=== PATIENT | female | born 1960 | race Caucasian/White ===

== ENCOUNTER 2024-12-07 13:02 | Emergency (ER) | payer BC, SELFPAY ==
[2024-12-07 13:10] VITALS: BP 148/77; PULSE 92; RESP 18; TEMP 36.8; O2SAT 100
--- NOTE | 2024-12-07 13:33 | ED.URI ---
HPI - URI/Sore Throat General Chief Complaint: Upper Respiratory Infection Stated Complaint: Cough,Congestion,Headache Time Seen by Provider: 12/07/24 13:33 Source: patient, RN notes reviewed and old records reviewed Mode of arrival: ambulatory Limitations: no limitations History of Present Illness HPI Narrative: patient presents with complaints of sinus pain and congestion for 9 days. She reports that she is more tired than usual and has copious postnasal drainage which is causing her to cough. She has been trying [id number] medications with moderate relief. She denies any injury or trauma. She voices no other concerns or complaints today Related Data Home Medications ?Medication ?Instructions ?Recorded ?Confirmed ?Last Taken ?Type cetirizine 10 mg capsule (Zyrtec) 10 mg PO DAILY 09/13/23 11/02/24 Unknown History cholecalciferol (vitamin D3) 50 50 mcg PO DAILY 09/13/23 11/02/24 Unknown History mcg (2,000 unit) tablet anastrozole 1 mg tablet 1 mg PO DAILY 12/13/23 11/02/24 Unknown History Allergies Allergy/AdvReac Type Severity Reaction Status Date / Time No Known Allergies Allergy Verified 12/07/24 13:38 Review of Systems Review of Systems: All systems reviewed & are unremarkable except as noted in HPI and below Constitutional: Constitutional: Reports no additional constitutional complaints ENT: Reports system reviewed and no additional complaints, except as documented, Reports nasal congestion, Reports nasal discharge, Reports post nasal drip, Reports sinus pain and Reports sinus pressure Cardiovascular: Cardiovascular: Reports no additional cardiovascular complaints Respiratory: Respiratory: Reports no additional respiratory complaints and Reports cough Gastrointestinal: Gastrointestinal: Reports no additional gastrointestinal complaints [facility] Social History Social History Smoking status: Never smoker Spiritual care concerns: No Comments At the time of my signature, I reviewed and agree with the nursing past medical, surgical, social, and family history. There is no relevant family history pertinent to the patient complaint. Exam Const: General: cooperative, no acute distress, alert and awake Orientation/consciousness: oriented to person, oriented to place and oriented to time HENMT: Head: normal to inspection Ears: TM abnormal dull bilateral Face and sinus: sinus tenderness maxillary Mouth: Yes moist mucous membranes Throat: postnasal drainage Resp: Effort & Inspection: normal respiratory effort and able to speak in complete sentences Auscultation: clear to auscultation bilaterally, no crackles, no rales, no rhonchi and no wheezes Cardio: Palpation: normal PMI Rate: regular rate Rhythm: regular rhythm Heart sounds: S1 normal heart sound present and S2 normal heart sound present Neuro: General: oriented to person, oriented to place and oriented to time Cranial nerves: Yes CN's II-XII intact bilaterally Psych: Appearance: grossly normal Thought process: Normal thought process present Insight: Good insight present (Psych) Judgement: Good judgement present (Psych) Course Course Level of Care: Express Care Visit Vital Signs Vital signs: Vital Signs Temperature 98.2 F 12/07/24 13:10 Pulse Rate 92 12/07/24 13:10 Respiratory Rate 18 12/07/24 13:10 Blood Pressure 148/77 H 12/07/24 13:10 Pulse Oximetry 100 12/07/24 13:10 Oxygen Delivery Room Air 12/07/24 13:10 Temperature 98.2 F 12/07/24 13:10 Pulse Rate 92 12/07/24 13:10 Respiratory Rate 18 12/07/24 13:10 Blood Pressure 148/77 H 12/07/24 13:10 Pulse Oximetry 100 12/07/24 13:10 Oxygen Delivery Room Air 12/07/24 13:10 Reviewed MDM - URI/Sore Throat MDM Narrative Medical decision making narrative: history and exam consistent with sinusitis. Patient nontoxic appearing, stable for discharge home with p.o. antibiotic therapy. Discharge instructions reviewed with patient, as well as provided in writing per nursing staff. The instructions also include specific and strict return/GO TO THE ER as well as f/u information. All questions have been answered, and the patient deny any further questions with discharge and discharge plan. Some parts of this dictation were generated by voice recognition software and may contain typographical and/or grammatical inaccuracies. Differential Diagnosis Differential diagnosis: Likely upper respiratory infection, otitis media, sinusitis and viral infection Medical Records Attestation: I reviewed the patient's medical records. Lab Data Attestation: I reviewed the patient's lab results. Discharge Plan Discharge Clinical Impression: Sinusitis Qualifiers: Sinusitis location: maxillary Chronicity: acute Recurrence: not specified as recurrent Qualified Code(s): J01.00 - Acute maxillary sinusitis, unspecified Patient Disposition: Home, Self-Care Condition: Stable Instructions: Antibiotic Form, Sinusitis (ED) Additional Instructions: take medications as prescribed. Follow with primary care provider. Emergency department for new or worse symptoms Patient Language: Croatian Prescriptions: New amoxicillin-pot clavulanate 875-125 mg tablet 1 tablet PO Q12H Qty: 14 0RF benzonatate 200 mg capsule 200 mg PO TID PRN (Reason: cough) Qty: 30 0RF No Action cholecalciferol (vitamin D3) 50 mcg (2,000 unit) Tablet 50 mcg PO DAILY Zyrtec 10 mg Capsule 10 mg PO DAILY anastrozole 1 mg Tablet 1 mg PO DAILY Follow-up/Referrals: UNKNOWN,DOCTOR [Primary Care Provider] - 2 Weeks Time of Disposition: 13:48
--- OUTSIDE RECORDS SUMMARY | 2024-12-07 13:41 | XMS_ITS ---
Author Name Interface, [id number] lity Address [address] [place] [address] [facility] ters Address [address] [place] [address] Care Team Providers Care Recruiter Coordinator Name Role Phone DicksonMoriah connortie Unavailable Unavailable Allergies and Adverse Reactions Medication/Group Name Reaction Severity Date No known allergies Plan Date Type Value 04/25/2029 APPOINTMENT Chemo C12D1 Dylon sumab (Prolia) [id number] 10/25/2028 APPOINTMENT Chemo C11D1 Dylon sumab (Prolia) K4Bfjmc 04/26/2028 APPOINTMENT Chemo C10D1 Dylon sumab (Prolia) E8Mxovl 10/27/2027 APPOINTMENT Chemo C9D1 Denos umab (Prolia) Y0Wbfjm 04/28/2027 APPOINTMENT Chemo C8D1 Denos umab (Prolia) L4Bjiqo 10/28/2026 APPOINTMENT Chemo C7D1 Denos umab (Prolia) Y4Sznss 04/29/2026 APPOINTMENT Chemo C6D1 Denos umab (Prolia) Q7Lowui 10/29/2025 APPOINTMENT Chemo C5D1 Denos umab (Prolia) I8Stzcu 04/30/2025 APPOINTMENT Chemo C4D1 Denos umab (Prolia) I2Zkofh 10/30/2024 APPOINTMENT Chemo C3D1 Denos umab (Prolia) Q8Iqffw 07/31/2024 APPOINTMENT Lab 07/31/2024 APPOINTMENT Follow-Up 07/31/2024 APPOINTMENT Lab 05/01/2024 APPOINTMENT Lab 05/01/2024 APPOINTMENT Chemo C2D1 Denos umab (Prolia) C4Qtgtv 05/01/2024 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 05/01/2024 APPOINTMENT Lab 05/01/2024 APPOINTMENT Follow-Up 04/29/2024 APPOINTMENT Chemo C2D1 Denos umab (Prolia) L8Gqigm 04/19/2024 APPOINTMENT Chemo C2D1 Denos umab (Prolia) X7Wxahb 01/24/2024 APPOINTMENT Follow-Up 12/25/2023 APPOINTMENT Anastrozole Oral 12/25/2023 APPOINTMENT Anastrozole Oral 11/29/2023 APPOINTMENT Anastrozole Oral 11/29/2023 APPOINTMENT Anastrozole Oral 11/29/2023 APPOINTMENT Lab 11/29/2023 APPOINTMENT Lab 11/29/2023 APPOINTMENT Follow-Up 11/29/2023 LABORDER CBC 11/29/2023 LABORDER CNG PANEL(CMP no Glucose) 04/25/2024 LABORDER Mammogram, scree lashonda, bilateral breast 05/01/2024 LABORDER CBC 05/01/2024 LABORDER CNG PANEL(CMP no Glucose) 07/31/2024 LABORDER CBC 07/31/2024 LABORDER CMP PANEL Reason for Visit Chemo C3D1 Denosumab (Prolia) [id number] Encounters Date Name 11/29/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 Screening mammograph y (procedure) Diagnostic Results Date Type Test Units Lower Limit Upper Limit Result Flag Comments Status Ordered By Specimen Source Lab Address 11/29 CBC WBC K/uL 4.0 11.0 4.1 [facility]AL [facility] [place] [facility], [address] [place] [id number] 0 11/29 CBC RBC M/uL 4.2 5.4 3.91 Low [facility]AL [facility] [place] [facility], [address] [place] [id number] 0 11/29 CBC HGB g/dL 12.0 16.0 12.7 [facility] [place] [facility], [address] [place] [id number] 0 11/29 CBC HCT % 37.0 47.0 38.0 [facility]AL [facility] [place] [facility], [address] [place] [id number] 0 11/29 CBC MCV fL 79.0 101.0 97.2 FINAL [facility] [place] [facility], [address] [place] [id number] 0 11/29 CBC MCH pg 27.0 31.0 32.5 High FINAL [facility] [place] [facility], [address] [place] [id number] 0 11/29 CBC MCHC g/dL 32.0 37.0 33.4 [facility] [place] [facility], [address] [place] [id number] 0 11/29 CBC RDW-C V, % % 8.0 15.0 13.1 [facility] [place] [facility], [address] [place] [id number] 0 11/29 CBC MPV fL 9.4 11.4 8.8 Low [facility] [place] [facility], [address] [place] [id number] 0 11/29 CBC PLT K/uL 130.0 400.0 163 [facility] [place] [facility], [address] [place] [id number] 0 11/29 CBC Danilo % % 58.0 71.0 53.8 Low [facility] [place] [facility], [address] [place] [id number] 0 11/29 CBC LY % % 20.0 38.0 31.2 [facility] [place] [facility], [address] [place] [id number] 0 11/29 CBC MO % % 0.0 15.0 11.6 [facility] [place] [facility], [address] [place] [id number] 0 11/29 CBC EO % % 0.0 6.0 2.9 [facility] [place] [facility], [address] [place] [id number] 0 11/29 CBC BA % % 0.0 3.0 0.5 [facility] [place] [facility], [address] [place] [id number] 0 11/29 CBC Danilo # (ANC) K/uL 1.8 7.8 2.2 [facility] [place] [facility], [address] [place] [id number] 0 11/29 CBC LY # K/uL 0.0 4.8 1.3 [facility] [place] [facility], [address] [place] [id number] 0 11/29 CBC MO # K/uL 0.1 0.8 0.5 [facility]AL [facility] [place] [facility], [address] [place] [id number] 0 11/29 CBC EO # K/uL 0.0 1.0 0.1 [facility] [place] [facility], [address] [place] [id number] 0 11/29 CBC BA # K/uL 0.0 1.3 0.0 [facility] [place] [facility], [address] [place] [id number] 0 11/29 CBC IG # K/uL 0.0 0.0 0.0 [facility] [place] [facility], [address] [place] [id number] 0 11/29 CBC IG % % 0.0 0.0 0.0 [facility] [place] [facility], [address] [place] [id number] 0 11/29 Sodiu m mmol/L 136.0 145.0 140 [facility] [place] [facility], [address] [place] [id number] 0 11/29 Potas sium mmol/L 3.5 5.1 3.7 [facility] [place] [facility], [address] [place] [id number] 0 11/29 Chlor vee mmol/L 98.0 107.0 107 [facility] [place] [facility], [address] [place] [id number] 0 11/29 Total prote in g/dL 6.4 8.2 7.8 [facility] [place] [facility], [address] [place] [id number] 0 11/29 Album in g/dL 3.4 5.0 4.1 [facility] [place] [facility], [address] [place] [id number] 0 11/29 Calci um mg/dL 8.5 10.1 9.3 [facility] [place] [facility], [address] [place] [id number] 0 11/29 BUN mg/dL 7.0 18.0 12 [facility] [place] [facility], [address] [place] [id number] 0 11/29 Creat inine mg/dL 0.55 1.02 0.53 Low [facility] [place] [facility], [address] [place] [id number] 0 11/29 Bilir ubin, total mg/dL 0.2 1.0 0.40 [facility] [place] [facility], [address] [place] [id number] 0 11/29 AST/S GOT U/L 15.0 37.0 29 [facility] [place] [facility], [address] [place] [id number] 0 11/29 ALT/S GPT U/L 12.0 78.0 19 [facility] [place] [facility], [address] [place] [address] [place] [address] 0 11/29 Alkal ine phosp hatas e U/L 46.0 116.0 89 [facility] [place] [facility], [address] [place] [address] [place] [address] 0 11/29 eGFR (2020 ) V 105.20 [facility] [place] [facility], [address] [place] [id number] 0 05/01 Sodiu m mmol/L 136.0 145.0 139 [facility] [place] [facility], [address] [place] [id number] 0 05/01 Potas sium mmol/L 3.5 5.1 3.8 [facility] [facility], [address] [place] [address] [place] [address] 0 05/01 Chlor vee mmol/L 98.0 107.0 104 [facility] [place] [facility], [address] [place] [id number] 0 05/01 Total prote in g/dL 6.4 8.2 7.4 [facility] [place] [facility], [address] [place] [id number] 0 05/01 Album in g/dL 3.4 5.0 4.5 [facility] [place] [facility], [address] [place] [id number] 0 05/01 Calci um mg/dL 8.5 10.1 9.5 [facility] [place] [facility], [address] [place] [id number] 0 05/01 BUN mg/dL 7.0 18.0 17 [facility] [place] [facility], [address] [place] [id number] 0 05/01 Creat inine mg/dL 0.55 1.02 0.58 [facility] [place] [facility], [address] [place] [id number] 0 05/01 Bilir ubin, total mg/dL 0.2 1.0 0.40 [facility] [place] [facility], [address] [place] [id number] 0 05/01 AST/S GOT U/L 15.0 37.0 27 [facility] [place] [facility], [address] [place] [id number] 0 05/01 ALT/S GPT U/L 12.0 78.0 15 [facility] [place] [facility], [address] [place] [address] [place] [address] 0 05/01 Alkal ine phosp hatas e U/L 46.0 116.0 75 [facility] [place] [facility], [address] [place] [address] [place] [address] 0 05/01 eGFR (2020 ) V 102.67 [facility] [place] [facility], [address] [place] [address] [place] [address] 0 05/01 CBC WBC K/uL 4.0 11.0 5.2 [facility] [place] [facility], [address] [place] [id number] 0 05/01 CBC RBC M/uL 4.2 5.4 3.93 Low [facility] [place] [facility], [address] [place] [id number] 0 05/01 CBC HGB g/dL 12.0 16.0 13.0 [facility] [place] [facility], [address] [place] [id number] 0 05/01 CBC HCT % 37.0 47.0 37.9 [facility] [place] [facility], [address] [place] [id number] 0 05/01 CBC MCV fL 79.0 101.0 96.4 [facility] [place] [facility], [address] [place] [id number] 0 05/01 CBC MCH pg 27.0 31.0 33.1 High [facility] [place] [facility], [address] [place] [id number] 0 05/01 CBC MCHC g/dL 32.0 37.0 34.3 [facility]AL [facility] [place] [facility], [address] [place] [id number] 0 05/01 CBC RDW-C V, % % 8.0 15.0 12.5 [facility]AL [facility] [place] [facility], [address] [place] [id number] 0 05/01 CBC MPV fL 9.4 11.4 8.3 Low [facility] [place] [facility], [address] [place] [id number] 0 05/01 CBC PLT K/uL 130.0 400.0 147 [facility] [place] [facility], [address] [place] [id number] 0 05/01 CBC Danilo % % 58.0 71.0 63.6 [facility] [place] [facility], [address] [place] [id number] 0 05/01 CBC LY % % 20.0 38.0 25.6 [facility] [place] [facility], [address] [place] [id number] 0 05/01 CBC MO % % 0.0 15.0 8.1 [facility] [place] [facility], [address] [place] [id number] 0 05/01 CBC EO % % 0.0 6.0 2.1 [facility] [place] [facility], [address] [place] [id number] 0 05/01 CBC BA % % 0.0 3.0 0.4 [facility] [place] [facility], [address] [place] [id number] 0 05/01 CBC Danilo # (ANC) K/uL 1.8 7.8 3.3 [facility] [place] [facility], [address] [place] [id number] 0 05/01 CBC LY # K/uL 0.0 4.8 1.3 [facility] [place] [facility], [address] [place] [id number] 0 05/01 CBC MO # K/uL 0.1 0.8 0.4 [facility] [place] [facility], [address] [place] [id number] 0 05/01 CBC EO # K/uL 0.0 1.0 0.1 [facility] [place] [facility], [address] [place] [id number] 0 05/01 CBC BA # K/uL 0.0 1.3 0.0 [facility] [place] [facility], [address] [place] [id number] 0 05/01 CBC IG # K/uL 0.0 0.0 0.0 [facility]AL [facility] [place] [facility], [address] [place] [id number] 0 05/01 CBC IG % % 0.0 0.0 0.2 High [facility] [place] [facility], [address] [place] [id number] 0 07/31 WBC K/uL 4.0 11.0 5.4 [facility] [place] [facility], [address] [place] [id number] 0 07/31 RBC M/uL 4.2 5.4 4.14 Low [facility] [place] [facility], [address] [place] [id number] 0 07/31 HGB g/dL 12.0 16.0 13.7 [facility] [place] [facility], [address] [place] [id number] 0 07/31 HCT % 37.0 47.0 40.7 [facility] [place] [facility], [address] [place] [id number] 0 07/31 MCV fL 79.0 101.0 98.3 [facility]AL [facility] [place] [facility], [address] [place] [id number] 0 07/31 MCH pg 27.0 31.0 33.1 High [facility] [place] [facility], [address] [place] [id number] 0 07/31 MCHC g/dL 32.0 37.0 33.7 [facility] [place] [facility], [address] [place] [id number] 0 07/31 RDW-C V, % % 8.0 15.0 12.7 [facility] [place] [facility], [address] [place] [id number] 0 07/31 MPV fL 9.4 11.4 8.5 Low [facility] [place] [facility], [address] [place] [id number] 0 07/31 PLT K/uL 130.0 400.0 196 [facility] [place] [facility], [address] [place] [id number] 0 07/31 Danilo % % 58.0 71.0 59.9 [facility] [place] [facility], [address] [place] [id number] 0 07/31 LY % % 20.0 38.0 27.8 [facility] [place] [facility], [address] [place] [id number] 0 07/31 MO % % 0.0 15.0 9.8 [facility] [place] [facility], [address] [place] [id number] 0 07/31 EO % % 0.0 6.0 1.9 [facility] [place] [facility], [address] [place] [id number] 0 07/31 BA % % 0.0 3.0 0.4 [facility] [place] [facility], [address] [place] [id number] 0 07/31 Danilo # (ANC) K/uL 1.8 7.8 3.2 [facility]AL [facility] [place] [facility], [address] [place] [id number] 0 07/31 LY # K/uL 0.0 4.8 1.5 [facility] [place] [facility], [address] [place] [id number] 0 07/31 MO # K/uL 0.1 0.8 0.5 [facility] [place] [facility], [address] [place] [id number] 0 07/31 EO # K/uL 0.0 1.0 0.1 [facility] [place] [facility], [address] [place] [id number] 0 07/31 BA # K/uL 0.0 1.3 0.0 [facility] [place] [facility], [address] [place] [id number] 0 07/31 IG # K/uL 0.0 0.0 0.0 [facility]AL [facility] [place] [facility], [address] [place] [id number] 0 07/31 IG % % 0.0 0.0 0.2 High [facility] [place] [facility], [address] [place] [id number] 0 07/31 Sodiu m mmol/L 136.0 145.0 138 [facility] [place] [facility], [address] [place] [id number] 0 07/31 Potas sium mmol/L 3.5 5.1 4.6 [facility] [place] [facility], [address] [place] [id number] 0 07/31 Chlor vee mmol/L 98.0 107.0 104 [facility] [place] [facility], [address] [place] [id number] 0 07/31 Total prote in g/dL 6.4 8.2 7.6 [facility] [place] [facility], [address] [place] [id number] 0 07/31 Album in g/dL 3.4 5.0 4.5 [facility] [place] [facility], [address] [place] [id number] 0 07/31 Calci um mg/dL 8.5 10.1 9.9 [facility] [place] [facility], [address] [place] [id number] 0 07/31 BUN mg/dL 7.0 18.0 16 [facility] [place] [facility], [address] [place] [id number] 0 07/31 Creat inine mg/dL 0.55 1.02 0.60 [facility] [place] [facility], [address] [place] [id number] 0 07/31 Bilir ubin, total mg/dL 0.2 1.0 0.70 [facility] [place] [facility], [address] [place] [id number] 0 07/31 AST/S GOT U/L 15.0 37.0 22 [facility] [place] [facility], [address] [place] [id number] 0 07/31 ALT/S GPT U/L 12.0 78.0 14 [facility] [place] [facility], [address] [place] [id number] 0 07/31 Alkal ine phosp hatas e U/L 46.0 116.0 70 [facility] [place] [facility], [address] [place] [id number] 0 07/31 eGFR (2020 ) V 101.67 [facility] [place] [facility], [address] [place] [id number] 0 Medications Date Name Route Dose Frequency Instructions Start Date End Date Status Cholecalciferol Oral active Cetirizine Oral a ctive 04/25 1 ML denosumab 60 MG/ML Prefilled Syringe subcutaneously 60.0 mg once Administer SQ injection in the upper arm, upper thigh or abdomen. 2028 active 04/25 famotidine 10 MG/ML Injectable Solution intravenously 20.0 mg Re-initiate treatment only upon physician approval. 2028 active 04/25 1 ML epinephrine 1 MG/ML Injection intramuscularly 0.3 mg once Re-initiate treatment only upon physician approval. 2028 active 04/25 diphenhydramine hydrochloride 0.5 MG/ML Injectable Solution intravenously 50.0 mg Re-initiate treatment only upon physician approval. 2028 active 04/25 methylprednisolo ne 2000 MG Injection intravenously 125.0 mg Re-initiate treatment only upon physician approval. 2028 active 04/25 hydrocortisone 100 MG Injection intravenously 100.0 mg Re-initiate treatment only upon physician approval. 2028 active 10/25 methylprednisolo ne 2000 MG Injection intravenously 125.0 mg Re-initiate treatment only upon physician approval. 2027 active 10/25 famotidine 10 MG/ML Injectable Solution intravenously 20.0 mg Re-initiate treatment only upon physician approval. 2027 active 10/25 hydrocortisone 100 MG Injection intravenously 100.0 mg Re-initiate treatment only upon physician approval. 2027 active 10/25 1 ML denosumab 60 MG/ML Prefilled Syringe subcutaneously 60.0 mg once Administer SQ injection in the upper arm, upper thigh or abdomen. 2027 active 10/25 diphenhydramine hydrochloride 0.5 MG/ML Injectable Solution intravenously 50.0 mg Re-initiate treatment only upon physician approval. 2027 active 10/25 1 ML epinephrine 1 MG/ML Injection intramuscularly 0.3 mg once Re-initiate treatment only upon physician approval. 2027 active 04/26 methylprednisolo ne 2000 MG Injection intravenously 125.0 mg Re-initiate treatment only upon physician approval. 2027 active 04/26 diphenhydramine hydrochloride 0.5 MG/ML Injectable Solution intravenously 50.0 mg Re-initiate treatment only upon physician approval. 2027 active 04/26 1 ML denosumab 60 MG/ML Prefilled Syringe subcutaneously 60.0 mg once Administer SQ injection in the upper arm, upper thigh or abdomen. 2027 active 04/26 hydrocortisone 100 MG Injection intravenously 100.0 mg Re-initiate treatment only upon physician approval. 2027 active 04/26 1 ML epinephrine 1 MG/ML Injection intramuscularly 0.3 mg once Re-initiate treatment only upon physician approval. 2027 active 04/26 famotidine 10 MG/ML Injectable Solution intravenously 20.0 mg Re-initiate treatment only upon physician approval. 2027 active 10/27 hydrocortisone 100 MG Injection intravenously 100.0 mg Re-initiate treatment only upon physician approval. 2026 active 10/27 1 ML epinephrine 1 MG/ML Injection intramuscularly 0.3 mg once Re-initiate treatment only upon physician approval. 2026 active 10/27 methylprednisolo ne 2000 MG Injection intravenously 125.0 mg Re-initiate treatment only upon physician approval. 2026 active 10/27 famotidine 10 MG/ML Injectable Solution intravenously 20.0 mg Re-initiate treatment only upon physician approval. 2026 active 10/27 1 ML denosumab 60 MG/ML Prefilled Syringe subcutaneously 60.0 mg once Administer SQ injection in the upper arm, upper thigh or abdomen. 2026 active 10/27 diphenhydramine hydrochloride 0.5 MG/ML Injectable Solution intravenously 50.0 mg Re-initiate treatment only upon physician approval. 2026 active 04/28 methylprednisolo ne 2000 MG Injection intravenously 125.0 mg Re-initiate treatment only upon physician approval. 2026 active 04/28 famotidine 10 MG/ML Injectable Solution intravenously 20.0 mg Re-initiate treatment only upon physician approval. 2026 active 04/28 1 ML epinephrine 1 MG/ML Injection intramuscularly 0.3 mg once Re-initiate treatment only upon physician approval. 2026 active 04/28 diphenhydramine hydrochloride 0.5 MG/ML Injectable Solution intravenously 50.0 mg Re-initiate treatment only upon physician approval. 2026 active 04/28 1 ML denosumab 60 MG/ML Prefilled Syringe subcutaneously 60.0 mg once Administer SQ injection in the upper arm, upper thigh or abdomen. 2026 active 04/28 hydrocortisone 100 MG Injection intravenously 100.0 mg Re-initiate treatment only upon physician approval. 2026 active 10/28 diphenhydramine hydrochloride 0.5 MG/ML Injectable Solution intravenously 50.0 mg Re-initiate treatment only upon physician approval. 2025 active 10/28 hydrocortisone 100 MG Injection intravenously 100.0 mg Re-initiate treatment only upon physician approval. 2025 active 10/28 methylprednisolo ne 2000 MG Injection intravenously 125.0 mg Re-initiate treatment only upon physician approval. 2025 active 10/28 famotidine 10 MG/ML Injectable Solution intravenously 20.0 mg Re-initiate treatment only upon physician approval. 2025 active 10/28 1 ML epinephrine 1 MG/ML Injection intramuscularly 0.3 mg once Re-initiate treatment only upon physician approval. 2025 active 10/28 1 ML denosumab 60 MG/ML Prefilled Syringe subcutaneously 60.0 mg once Administer SQ injection in the upper arm, upper thigh or abdomen. 2025 active 04/29 1 ML denosumab 60 MG/ML Prefilled Syringe subcutaneously 60.0 mg once Administer SQ injection in the upper arm, upper thigh or abdomen. 2025 active 04/29 diphenhydramine hydrochloride 0.5 MG/ML Injectable Solution intravenously 50.0 mg Re-initiate treatment only upon physician approval. 2025 active 04/29 methylprednisolo ne 2000 MG Injection intravenously 125.0 mg Re-initiate treatment only upon physician approval. 2025 active 04/29 1 ML epinephrine 1 MG/ML Injection intramuscularly 0.3 mg once Re-initiate treatment only upon physician approval. 2025 active 04/29 hydrocortisone 100 MG Injection intravenously 100.0 mg Re-initiate treatment only upon physician approval. 2025 active 04/29 famotidine 10 MG/ML Injectable Solution intravenously 20.0 mg Re-initiate treatment only upon physician approval. 2025 active 10/29 1 ML epinephrine 1 MG/ML Injection intramuscularly 0.3 mg once Re-initiate treatment only upon physician approval. 2024 active 10/29 methylprednisolo ne 2000 MG Injection intravenously 125.0 mg Re-initiate treatment only upon physician approval. 2024 active 10/29 1 ML denosumab 60 MG/ML Prefilled Syringe subcutaneously 60.0 mg once Administer SQ injection in the upper arm, upper thigh or abdomen. 2024 active 10/29 diphenhydramine hydrochloride 0.5 MG/ML Injectable Solution intravenously 50.0 mg Re-initiate treatment only upon physician approval. 2024 active 10/29 hydrocortisone 100 MG Injection intravenously 100.0 mg Re-initiate treatment only upon physician approval. 2024 active 10/29 famotidine 10 MG/ML Injectable Solution intravenously 20.0 mg Re-initiate treatment only upon physician approval. 2024 active 04/30 famotidine 10 MG/ML Injectable Solution intravenously 20.0 mg Re-initiate treatment only upon physician approval. 2024 active 04/30 1 ML denosumab 60 MG/ML Prefilled Syringe subcutaneously 60.0 mg once Administer SQ injection in the upper arm, upper thigh or abdomen. 2024 active 04/30 1 ML epinephrine 1 MG/ML Injection intramuscularly 0.3 mg once Re-initiate treatment only upon physician approval. 2024 active 04/30 methylprednisolo ne 2000 MG Injection intravenously 125.0 mg Re-initiate treatment only upon physician approval. 2024 active 04/30 diphenhydramine hydrochloride 0.5 MG/ML Injectable Solution intravenously 50.0 mg Re-initiate treatment only upon physician approval. 2024 active 04/30 hydrocortisone 100 MG Injection intravenously 100.0 mg Re-initiate treatment only upon physician approval. 2024 active 10/30 famotidine 10 MG/ML Injectable Solution intravenously 20.0 mg Re-initiate treatment only upon physician approval. 2023 active 10/30 methylprednisolo ne 2000 MG Injection intravenously 125.0 mg Re-initiate treatment only upon physician approval. 2023 active 10/30 1 ML epinephrine 1 MG/ML Injection intramuscularly 0.3 mg once Re-initiate treatment only upon physician approval. 2023 active 10/30 diphenhydramine hydrochloride 0.5 MG/ML Injectable Solution intravenously 50.0 mg Re-initiate treatment only upon physician approval. 2023 active 10/30 hydrocortisone 100 MG Injection intravenously 100.0 mg Re-initiate treatment only upon physician approval. 2023 active 10/30 1 ML denosumab 60 MG/ML Prefilled Syringe subcutaneously 60.0 mg once Administer SQ injection in the upper arm, upper thigh or abdomen. 2023 active 05/01 famotidine 10 MG/ML Injectable Solution intravenously 20.0 mg Re-initiate treatment only upon physician approval. 2023 active 05/01 diphenhydramine hydrochloride 0.5 MG/ML Injectable Solution intravenously 50.0 mg Re-initiate treatment only upon physician approval. 2023 active 05/01 1 ML epinephrine 1 MG/ML Injection intramuscularly 0.3 mg once Re-initiate treatment only upon physician approval. 2023 active 05/01 hydrocortisone 100 MG Injection intravenously 100.0 mg Re-initiate treatment only upon physician approval. 2023 active 05/01 methylprednisolo ne 2000 MG Injection intravenously 125.0 mg Re-initiate treatment only upon physician approval. 2023 active 12/25 anastrozole 1 MG Oral Tablet orally 1.0 tablet every day 2023 active 11/29 anastrozole 1 MG Oral Tablet orally 1.0 tablet every day 2023 active 10/30 methylprednisolo ne 2000 MG Injection intravenously 125.0 mg Re-initiate treatment only upon physician approval. 2022 active 10/30 anastrozole 1 MG Oral Tablet orally 1.0 tablet every day 2022 active 10/30 hydrocortisone 100 MG Injection intravenously 100.0 mg Re-initiate treatment only upon physician approval. 2022 active 10/30 diphenhydramine hydrochloride 0.5 MG/ML Injectable Solution intravenously 50.0 mg Re-initiate treatment only upon physician approval. 2022 active 10/30 famotidine 10 MG/ML Injectable Solution intravenously 20.0 mg Re-initiate treatment only upon physician approval. 2022 active 10/30 1 ML epinephrine 1 MG/ML Injection intramuscularly 0.3 mg once Re-initiate treatment only upon physician approval. 2022 active Problems Diagnosis Status Date of Diagnosi s Breast DCIS Active Osteopenia (disorder) Active Intestinal malabsorption (disorder) Active Screening mammography (procedure) Active Vital Signs Date Type Value 11/29/2023 BMI 28.07 11/29/2023 Height 68.00 11/29/2023 Weight 184.60 11/29/2023 Pain Scale 0.00 11/29/2023 BSA 1.98 11/29/2023 Oxygen Saturation 98.00 11/29/2023 Heart Beat 84.00 11/29/2023 Body Temperature 97.00 11/29/2023 Intravascular Systolic 138 11/29/2023 Intravascular Diastolic 72 01/24/2024 BSA 1.97 01/24/2024 BMI 27.82 01/24/2024 Height 68.00 01/24/2024 Weight 183.00 01/24/2024 Intravascular Systolic 128 01/24/2024 Intravascular Diastolic 78 01/24/2024 Oxygen Saturation 95.00 01/24/2024 Heart Beat 72.00 01/24/2024 Body Temperature 97.00 01/24/2024 Pain Scale 0.00 05/01/2024 Body Temperature 97.00 05/01/2024 Heart Beat 83.00 05/01/2024 Pain Scale 0.00 05/01/2024 BSA 1.95 05/01/2024 BMI 27.37 05/01/2024 Height 68.00 05/01/2024 Weight 180.00 05/01/2024 Intravascular Systolic 122 05/01/2024 Intravascular Diastolic 70 05/01/2024 Oxygen Saturation 96.00 07/31/2024 Pain Scale 0.00 07/31/2024 BMI 26.76 07/31/2024 Height 68.00 07/31/2024 Weight 176.00 07/31/2024 BSA 1.94 07/31/2024 Oxygen Saturation 98.00 07/31/2024 Heart Beat 74.00 07/31/2024 Body Temperature 97.60 07/31/2024 Intravascular Systolic 124 07/31/2024 Intravascular Diastolic 78 Notes Section * Nurse Note for: 31-JUL-24 [facility] Nurse Note Print Location: Unknown Date/Time Printed: 12/07/2024 13:41 ([facility]) Patient: Erna Jackson Sex: Female : 1960 Date of Service: 07/31/2024 Allergies : No Known Allergies Vital Signs : Time: 02:00. Weight: 176 lb (79.83 kg). Height: 68 in (172.72 cm). BMI: 26.76 (kg/m2) . BSA: 1.94 (m2) . Temperature: 97.6 (F) forehead. Pulse: 74 (/min) sitting. Blood pressure: 124/78 (mm Hg) rightarm Regular. Pain Scale: 0. O2 Saturation: 98 (%) at rest. Entered by Jose Spain MA 07/31/2024 12:32 Patient Assessment : Negative results Assessment : Gait Changes. Denies Pain -0-No pain. Entered By Jose Spain MA on 12:32 * Nurse Note for: 01-MAY-24 [facility] Nurse Note Print Location: Unknown Date/Time Printed: 12/07/2024 13:41 ([facility]) Patient: Erna Jackson Sex: Female : 1960 Date of Service: 05/01/2024 Allergies : No Known Allergies Vital Signs : Time: 02:00. Weight: 180 lb (81.65 kg). Height: 68 in (172.72 cm). BMI: 27.37 (kg/m2) . BSA: 1.95 (m2) . Temperature: 97 (F) forehead. Pulse: 83 (/min) sitting. Blood pressure: 122/70 (mm Hg) right arm Large. O2 Saturation: 96 (%) at rest. Entered by Rashida Szymanski 05/01/2024 15:00 Time: 02:00. Pain Scale: 0. Entered by Rashida Szymanski 05/01/2024 14:59 Patient Assessment : Negative results Assessment : Gait Changes. Denies Pain -0-No pain. Entered By Rashida Szymanski on 14:59 Medication Administration : Incident to: [place] Randall MD Denosumab (Prolia) [id number] Immunotherapy Denosumab Subcutaneous (60 mg/mL - Prolia), 60 mg/mL syringe, 60 mg subcutaneously once, Instructions: Administer SQ injection in the upper arm, upper thigh or abdomen., Allow Substitution GIVEN: 60 mg Pharmacy plan: Dose Form Description: 60 mg/mL syringe Dispense/Waste: 60/0 mg Pharmacy dispense: [facility]: [id number] Dispense/Waste: 60/0 mg Given Dose/Discard: 60/0 mg Admin Details: Injection Location: Right-Upper Arm Time: 15:23 Checked By: Rashida Szymanski on 05/01/2024 15:23 * Nurse Note for: 24-JAN-24 [facility] Nurse Note Print Location: Unknown Date/Time Printed: 12/07/2024 13:41 ([facility]) Patient: Erna Jackson Sex: Female : 1960 Date of Service: 01/24/2024 Allergies : No Known Allergies Vital Signs : Time: 02:00. Weight: 183 lb (83.01 kg). Height: 68 in (172.72 cm). BMI: 27.82 (kg/m2) . BSA: 1.97 (m2) . Temperature: 97 (F) forehead. Pulse: 72 (/min) sitting. Blood pressure: 128/78 (mm Hg) right arm Large. O2 Saturation: 95 (%) at rest. Entered by Rashida Szymanski 01/24/2024 15:07 Time: 02:00. Pain Scale: 0. Entered by Rashida Szymanski 01/24/2024 15:06 Patient Assessment : Negative results Assessment : Gait Changes. Denies Pain -0-No pain. Entered By Rashida Szymanski on 15:06 * Nurse Note for: 29-NOV-23 [facility] Nurse Note Print Location: Unknown Date/Time Printed: 12/07/2024 13:41 ([facility]) Patient: Erna Jackson Sex: Female : 1960 Date of Service: 11/29/2023 Allergies : No Known Allergies Vital Signs : Time: 02:00. Weight: 184.6 lb (83.73 kg). Height: 68 in (172.72 cm). BMI: 28.07 (kg/m2) . BSA: 1.98(m2) . Temperature: 97 (F) . Pulse: 84 (/min) . Blood pressure: 138/72 (mm Hg) right arm Regular. Pain Scale: 0. O2 Saturation: 98 (%) . Entered by Candie Howard MA 11/29/2023 14:43 Patient Assessment : Negative results Assessment : Gait Changes. Denies Pain -0-No pain. Entered By Candie Howard MA on 14:39
--- OUTSIDE RECORDS SUMMARY | 2024-12-07 13:41 | XMS_ITS | CCD ---
Author Name Interface, [id number] lity Address [address] [place] [address] [facility] [address] Address [address] [place] [address] Care Team Providers Care Mounter Hand Name Role Phone [place] Randall Unavailable Allergies and Adverse Reactions Care Plan Reason for Visit Encounters Diagnostic Results Medications Administered Medications Problems Procedures Social History Vital Signs
--- OUTSIDE RECORDS SUMMARY | 2024-12-07 13:41 | XMS_ITS ---
Author Name Interface, [id number] lity Address [address] [place] [address] [facility] ters Address [address] [place] [address] Care Team Providers Care Studio Operator Name Role Phone [place] Randall Martha Unavailable Allergies and Adverse Reactions Medication/Group Name Reaction Severity Date No known allergies Plan Date Type Value 04/25/2029 APPOINTMENT Chemo C12D1 Dylon sumab (Prolia) C4Xsyrm 10/25/2028 APPOINTMENT Chemo C11D1 Dylon sumab (Prolia) R8Vevyq 04/26/2028 APPOINTMENT Chemo C10D1 Dylon sumab (Prolia) S9Amods 10/27/2027 APPOINTMENT Chemo C9D1 Denos umab (Prolia) P2Gstuj 04/28/2027 APPOINTMENT Chemo C8D1 Denos umab (Prolia) K8Ahvxg 10/28/2026 APPOINTMENT Chemo C7D1 Denos umab (Prolia) V3Rwhrm 04/29/2026 APPOINTMENT Chemo C6D1 Denos umab (Prolia) R4Hpziy 10/29/2025 APPOINTMENT Chemo C5D1 Denos umab (Prolia) V6Fliwn 04/30/2025 APPOINTMENT Chemo C4D1 Denos umab (Prolia) W1Czpgq 10/30/2024 APPOINTMENT Chemo C3D1 Denos umab (Prolia) Q9Kkjny 07/31/2024 APPOINTMENT Lab 07/31/2024 APPOINTMENT Follow-Up 07/31/2024 APPOINTMENT Lab 07/31/2024 LABORDER CBC 07/31/2024 LABORDER CMP PANEL Reason for Visit Chemo C3D1 Denosumab (Prolia) H1Eojch Encounters Date Name 07/31/2024 Breast DCIS Diagnostic Results Date Type Test Units Lower Limit Upper Limit Result Flag Comments Status Ordered By Specimen Source Lab Address 09/20 /2024 WBC K/uL 4.0 11.0 5.4 FINAL [facility] [place] [facility], [address] [place] [id number] 07/31 RBC M/uL 4.2 5.4 4.14 Low FINAL [facility] [place] [facility], [address] [place] [id number] 0 07/31 HGB g/dL 12.0 16.0 13.7 FINAL [facility] [place] [facility], [address] [place] [id number] 0 07/31 HCT % 37.0 47.0 40.7 FINAL [facility] [place] [facility], [address] [place] [id number] 0 07/31 MCV fL 79.0 101.0 98.3 FINAL [facility] [place] [facility], [address] [place] [id number] 0 07/31 MCH pg 27.0 31.0 33.1 High FINAL [facility] [place] [facility], [address] [place] [id number] 0 07/31 MCHC g/dL 32.0 37.0 33.7 FINAL [facility] [place] [facility], [address] [place] [id number] 0 07/31 RDW-C V, % % 8.0 15.0 12.7 FINAL [facility] [place] [facility], [address] [place] [id number] 0 07/31 MPV fL 9.4 11.4 8.5 Low FINAL [facility] [place] [facility], [address] [place] [id number] 0 07/31 PLT K/uL 130.0 400.0 196 FINAL [facility] [place] [facility], [address] [place] [id number] 0 07/31 Danilo % % 58.0 71.0 59.9 FINAL [facility] [place] [facility], [address] [place] [id number] 0 07/31 LY % % 20.0 38.0 27.8 FINAL [facility] [place] [facility], [address] [place] [id number] 0 07/31 MO % % 0.0 15.0 9.8 FINAL [facility] [place] [facility], [address] [place] [id number] 0 07/31 EO % % 0.0 6.0 1.9 FINAL [facility] [place] [facility], [address] [place] [id number] 0 07/31 BA % % 0.0 3.0 0.4 FINAL [facility] [place] [facility], [address] [place] [id number] 0 07/31 Danilo # (ANC) K/uL 1.8 7.8 3.2 FINAL [facility] [place] [facility], [address] [place] [id number] 0 07/31 LY # K/uL 0.0 4.8 1.5 FINAL [facility] [place] [facility], [address] [place] [id number] 0 07/31 MO # K/uL 0.1 0.8 0.5 FINAL [facility] [place] [facility], [address] [place] [id number] 0 07/31 EO # K/uL 0.0 1.0 0.1 FINAL [facility] [place] [facility], [address] [place] [id number] 0 07/31 BA # K/uL 0.0 1.3 0.0 FINAL [facility] [place] [facility], [address] [place] [id number] 0 07/31 IG # K/uL 0.0 0.0 0.0 FINAL [facility] [place] [facility], [address] [place] [id number] 0 07/31 IG % % 0.0 0.0 0.2 High FINAL [facility] [place] [facility], [address] [place] [id number] 0 07/31 Sodiu m mmol/L 136.0 145.0 138 FINAL [facility] [place] [facility], [address] [place] [id number] 0 07/31 Potas sium mmol/L 3.5 5.1 4.6 FINAL [facility] [place] [facility], [address] [place] [id number] 0 07/31 Chlor vee mmol/L 98.0 107.0 104 FINAL [facility] [place] [facility], [address] [place] [id number] 0 07/31 Total prote in g/dL 6.4 8.2 7.6 FINAL [facility] [place] [facility], [address] [place] [id number] 0 07/31 Album in g/dL 3.4 5.0 4.5 FINAL [facility] [place] [facility], [address] [place] [id number] 0 07/31 Calci um mg/dL 8.5 10.1 9.9 FINAL [facility] [place] [facility], [address] [place] [id number] 0 07/31 BUN mg/dL 7.0 18.0 16 FINAL [facility] [place] [facility], [address] [place] [id number] 0 07/31 Creat inine mg/dL 0.55 1.02 0.60 FINAL [facility] [place] [facility], [address] [place] [id number] 0 07/31 Bilir ubin, total mg/dL 0.2 1.0 0.70 FINAL [facility] [place] [facility], [address] [place] [id number] 0 07/31 AST/S GOT U/L 15.0 37.0 22 FINAL [facility] [place] [facility], [address] [place] [id number] 0 07/31 ALT/S GPT U/L 12.0 78.0 14 FINAL [facility] [place] [facility], [address] [place] [id number] 0 07/31 Alkal ine phosp hatas e U/L 46.0 116.0 70 FINAL [facility] [place] [facility], [address] [place] [id number] 0 07/31 eGFR (2020 ) V 101.67 FINAL [facility] [place] [facility], [address] [place] [id number] 0 Medications Date Name Route Dose Frequency [...] (procedure) Active Vital Signs Date Type Value 07/31/2024 Pain Scale 0.00 07/31/2024 Body Temperature 97.60 07/31/2024 Heart Beat 74.00 07/31/2024 Oxygen Saturation 98.00 07/31/2024 BSA 1.94 07/31/2024 Weight 176.00 07/31/2024 Height 68.00 07/31/2024 BMI 26.76 07/31/2024 Intravascular Systolic 124 07/31/2024 Intravascular Diastolic 78 Notes Section * Nurse Note for: 31-JUL-24 [facility] Nurse Note Print Location: Unknown Date/Time Printed: 12/07/2024 13:41 ([facility]) Patient: Erna Jackson Sex: Female : 1960 [...]
--- OUTSIDE RECORDS SUMMARY | 2024-12-07 13:41 | XMS_ITS | Clinical Summary ---
Author Organization [facility] Phong silva Clarita Address [address] [place] [address] Care Team Providers Care Supervisor Hanging And Trimming Name Role Phone Unavailable Primary Care Provider Unavailabl e Allergies No known active allergies Medications anastrozole (ARIMIDEX) 1 mg tablet Take 1 mg by mouth daily. Active cetirizine (ZyrTEC) 10 mg tablet Take 10 mg by mouth. Active Cholecalciferol, Vitamin D3, 50 mcg (2,000 unit) Capsule Take 2,000 Units by mouth daily. Active Active Problems No known active problems Encounters Date Type Department Care Team Description 12/03/2024 External Device Data [facility] ABSTRACTION Provider, Abstract 12/02/2024 External Device Data [facility] ABSTRACTION Provider, Abstract 12/01/2024 External Device Data [facility] ABSTRACTION Provider, Abstract 11/24/2024 External Device Data [facility] ABSTRACTION Provider, Abstract 11/17/2024 External Device Data [facility]STRACTION Provider, Abstract 10/27/2024 Orders Only [facility] [address] [address] [place] [address] Scott Beck MD 10/19/2024 Abstract [facility]ology [facility] [address] [place] [address] Scott Beck MD 10/15/2024 Telephone [facility] [address] [address] [place] [address] Scott Beck MD Medication Changes 10/06/2024 External Device Data [facility] ABSTRACTION Provider, Abstract 09/30/2024 10:30 AM FARM AGENT Office Visit [facility] On[facility] and Hematology - [facility] [address] [place] [phone] Scott Beck MD Ductal carcinoma in situ (DCIS) of left breast (Primary Dx) from Last 3 Months Family History Medical History Relation Name Comments No Known Problems Child 1 No Known Problems Child 2 Colon Cancer Father No Known Problems Mother Relation Name Status Comments Child 1 Alive Child 2 Alive Father Mother Social History Tobacco Use Types Packs/Day Years Used Date Smoking Tobacco: Never Smokeless Tobacco: Never Alcohol Use Standard Drinks/Week Comments Yes 0 (1 standard drink = 0.6 oz pure alcohol) occasionally maybe once a month Comments Unknown Sex and Gender Information Value Date Recorded Sex Assigned at Not on file Legal Sex Female 1:12 PM FARM AGENT Gender Identity Not on file Sexual Orientation Not on file Last Filed Vital Signs Vital Sign Reading Time Taken Comments Blood Pressure 136/77 09/30/2024 11:10 AM FARM AGENT Pulse 67 09/30/2024 11:10 AM FARM AGENT Temperature 36.3 ??C (97.3 ??F) 09/30/2024 11:[address] Respiratory Rate 18 09/30/2024 11:10 AM FARM AGENT Oxygen Saturation 95% 09/30/2024 11:10 AM FARM AGENT Inhaled Oxygen Concentration - - Weight 81.6 kg (180 lb) 09/30/2024 11:10 AM FARM AGENT Height 172.7 cm (5' 8 ) 09/30/2024 11:10 AM FARM AGENT Body Mass Index 27.37 09/30/2024 11:10 AM FARM AGENT Plan of Treatment Upcoming Encounters Date Type Department Care Team (Late st Contact Info) Description 01/07/2025 3:45 PM FARM AGENT Office Visit [facility] Oncology and Hematology - [address] [address] [place] [phone] Scott Beck MD [address] [facility] [address] [place] [address] Health Maintenance Due Date Last Done Comments Pre-Diabetes and Diabetes Screening 1960 COLORECTAL SCREENING 2007 Colorectal Cancer Screening 2007 FIT-DNA Q 3 years 2007 FIT/FOBT Q 1 year 2007 Flex Sig/CT Colonography Q 5 years 2007 INFLUENZA VACCINE (#1) 2024 COVID-19 Vaccine (3 2023- season) 2024 02/21/2021, 01/23/2021 BREAST CANCER SCREENING 04/22/2025 04/22/20 24, 07/08/2023, 05/20/2023, Additional history exists DTAP/TDAP/TD VACCINES (2 - Td or Tdap) 04/10/2026 04/10/2016 CERVICAL CANCER SCREENING 05/13/2026 05/13/2023 RSV VACCINE (60+ or ) (1 - 1-dose 75+ series) 2037 ZOSTER VACCINE Completed 07/23/2023, 04/01/2023 PNEUMOCOCCAL VACCINE 0-64 YEARS Aged Out No longer eligible based on patient's age to complete this topic Procedures Procedure Name Priority Date/Time Associated Diagnosis Comments COMPREHENSIVE METABOLIC PANEL Routine 10/26/2024 12:52 PM FARM AGENT from Last 3 Months Results * COMPREHENSIVE METABOLIC PANEL (10/26/2024 12:52 PM FARM AGENT) Blood Scott Beck MD CHEMISTRY ORDERABLES Final Resu lt from Last [address] [facility] BLUE ACCESS/TRUE BLUE PPO
--- OUTSIDE RECORDS SUMMARY | 2024-12-07 13:43 | XMS_ITS | CCD ---
Author Name Interface, [id number] lity Address [address] [place] [address] [facility] [address] Address [address] [place] [address] Care Team Providers Care Ip Litigation Associate Name Role Phone [place] Randall Unavailable Allergies and Adverse Reactions Care Plan Reason for Visit Encounters Diagnostic Results Medications Administered Medications Problems Procedures Social History Vital Signs
--- OUTSIDE RECORDS SUMMARY | 2024-12-07 13:43 | XMS_ITS ---
Author Name Interface, [id number] lity Address [address] [place] [address] [facility] ters Address [address] [place] [address] Care Team Providers Care Grain Inspector Name Role Phone [place] Randall Martha Unavailable Allergies and Adverse Reactions Medication/Group Name Reaction Severity Date No known allergies Plan Date Type Value 04/25/2029 APPOINTMENT Chemo C12D1 Dylon sumab (Prolia) K5Jxrvx 10/25/2028 APPOINTMENT Chemo C11D1 Dylon sumab (Prolia) Z3Omywl 04/26/2028 APPOINTMENT Chemo C10D1 Dylon sumab (Prolia) L7Ctfpu 10/27/2027 APPOINTMENT Chemo C9D1 Denos umab (Prolia) L2Zwwcb 04/28/2027 APPOINTMENT Chemo C8D1 Denos umab (Prolia) J4Dxzxt 10/28/2026 APPOINTMENT Chemo C7D1 Denos umab (Prolia) U6Ngrby 04/29/2026 APPOINTMENT Chemo C6D1 Denos umab (Prolia) I1Gktfi 10/29/2025 APPOINTMENT Chemo C5D1 Denos umab (Prolia) L6Bnwjr 04/30/2025 APPOINTMENT Chemo C4D1 Denos umab (Prolia) K5Tlibc 10/30/2024 APPOINTMENT Chemo C3D1 Denos umab (Prolia) V0Fqomz 07/31/2024 APPOINTMENT Lab 07/31/2024 APPOINTMENT Follow-Up 07/31/2024 APPOINTMENT Lab 07/31/2024 LABORDER CBC 07/31/2024 LABORDER CMP PANEL Reason for Visit Chemo C3D1 Denosumab (Prolia) R4Vfzyy Encounters Date Name 07/31/2024 Breast DCIS Diagnostic Results Date Type Test Units Lower Limit Upper Limit Result Flag Comments Status Ordered By Specimen Source Lab Address 09/20 /2024 WBC K/uL 4.0 11.0 5.4 FINAL [facility] [place] [facility], [address] [place] [id number] 0 07/31 RBC M/uL 4.2 5.4 4.14 Low FINAL [facility] [place] [facility], [address] [place] [id number] 0 07/31 HGB g/dL 12.0 16.0 13.7 FINAL [facility] [place] [facility], [address] [place] [id number] 0 07/31 HCT % 37.0 47.0 40.7 FINAL [facility] [place] [facility], [address] [place] [id number] 0 07/31 MCV fL 79.0 101.0 98.3 FINAL [facility] [place] [facility], [address] [place] [id number] 0 07/31 MCH pg 27.0 31.0 33.1 High FINAL [facility] [place] [facility], [address] [place] [id number] 0 07/31 MCHC g/dL 32.0 37.0 33.7 FINAL [facility] [place] [facility], [address] [place] [id number] 0 07/31 RDW-C V, % % 8.0 15.0 12.7 FINAL [facility] [place] [facility], [address] [place] [id number] 0 07/31 MPV fL 9.4 11.4 8.5 Low FINAL [facility] [place] [facility], [address] [place] [id number] 0 07/31 PLT K/uL 130.0 400.0 196 FINAL [facility] [place] [facility], [address] [place] [id number] 0 07/31 Danilo % % 58.0 71.0 59.9 FINAL [facility] [place] [facility], [address] [place] [id number] 0 07/31 LY % % 20.0 38.0 27.8 FINAL [facility] [place] [facility], [address] [place] [id number] 0 07/31 MO % % 0.0 15.0 9.8 FINAL [facility] [place] [facility], [address] [place] [id number] 0 07/31 EO % % 0.0 6.0 1.9 FINAL [facility] [place] [facility], [address] [place] [id number] 0 07/31 BA % % 0.0 3.0 0.4 FINAL [facility] [place] [facility], [address] [place] [id number] 0 07/31 Danilo # (ANC) K/uL 1.8 7.8 3.2 FINAL [facility] [place] [facility], [address] [place] [id number] 0 07/31 LY # K/uL 0.0 4.8 1.5 FINAL [facility] [place] [facility], [address] [place] [id number] 0 07/31 MO # K/uL 0.1 0.8 0.5 FINAL [facility] [place] [facility], [address] [place] [id number] 0 07/31 EO # K/uL 0.0 1.0 0.1 FINAL [facility] [place] [facility], [address] [place] [id number] 0 07/31 BA # K/uL 0.0 1.3 0.0 FINAL [facility] [place] [facility], [address] [place] [id number] 0 07/31 IG # K/uL 0.0 0.0 0.0 FINAL [facility] [place] [facility], [address] [place] [id number] 0 07/31 IG % % 0.0 0.0 0.2 High FINAL [facility] [place] [facility], [address] [place] [id number] 0 07/31 Sodiu m mmol/L 136.0 145.0 138 FINAL [facility] [place] [facility], [address] [place] [id number] 0 07/31 Potas sium mmol/L 3.5 5.1 4.6 FINAL [facility] [place] [facility], [address] [place] [id number] 0 07/31 Chlor vee mmol/L 98.0 107.0 104 FINAL [facility] [place] [facility], [address] [place] [id number] 0 07/31 Total prote in g/dL 6.4 8.2 7.6 FINAL [facility] [place] [facility], [address] [place] [id number] 0 07/31 Album in g/dL 3.4 5.0 4.5 FINAL [facility] [place] [facility], [address] [place] [id number] 0 07/31 Calci um mg/dL 8.5 10.1 9.9 FINAL [facility] [place] [facility], [address] [place] [id number] 0 07/31 BUN mg/dL 7.0 18.0 16 FINAL [facility] [place] [facility], [address] [place] [id number] 0 07/31 Creat inine mg/dL 0.55 1.02 0.60 FINAL [facility] [place] [facility], [address] [place] [id number] 0 07/31 Bilir ubin, total mg/dL 0.2 1.0 0.70 FINAL [facility] [place] [facility], [address] [place] [id number] 0 07/31 AST/S GOT U/L 15.0 37.0 22 FINAL [facility] [place] [facility], [address] [place] [id number] 0 07/31 ALT/S GPT U/L 12.0 78.0 14 FINAL [facility] [place] [facility], [address] [place] [id number] 0 07/31 Alkal ine phosp hatas e U/L 46.0 116.0 70 FINAL [facility] [place] [facility], [address] [place] [id number] 0 07/31 eGFR (2020 ) V 101.67 FINAL [facility] [place] [facility], [address] [place] [id number] 0 Medications Date Name Route Dose Frequency [...] Notes Section * Nurse Note for: 31-JUL-24 [facility] Nurse Note Print Location: Unknown Date/Time Printed: 12/07/2024 13:43 ([facility]) Patient: Erna Jackson Sex: Female : 1960 [...]
--- OUTSIDE RECORDS SUMMARY | 2024-12-07 13:43 | XMS_ITS | CCD ---
Author Name Interface, [id number] lity Address [address] [place] [address] [facility] ters Address [address] [place] [address] Care Team Providers Care Ignition Expert Name Role Phone [place] Randall Martha Unavailable Allergies and Adverse Reactions Medication/Group Name Reaction Severity Date No known allergies Care Plan Date Type Value APPOINTMENT DEXA scan APPOINTMENT RTC AGRONOMY PROFESSOR APPOINTMENT RTC MD APPOINTMENT RTC MD APPOINTMENT Mammogram, boogie gallego, bilateral breast APPOINTMENT RTC MD APPOINTMENT RTC AGRONOMY PROFESSOR 04/25/2029 APPOINTMENT Chemo C12D1 Dylon sumab (Prolia) [id number] 10/25/2028 APPOINTMENT Chemo C11D1 Dylon sumab (Prolia) T5Qgxcf 04/26/2028 APPOINTMENT Chemo C10D1 Dylon sumab (Prolia) A5Jgscy 10/27/2027 APPOINTMENT Chemo C9D1 Denos umab (Prolia) S8Jccma 04/28/2027 APPOINTMENT Chemo C8D1 Denos umab (Prolia) A6Zxrct 10/28/2026 APPOINTMENT Chemo C7D1 Denos umab (Prolia) H3Vkzzz 04/29/2026 APPOINTMENT Chemo C6D1 Denos umab (Prolia) A9Ixhej 10/29/2025 APPOINTMENT Chemo C5D1 Denos umab (Prolia) B6Cudzm 04/30/2025 APPOINTMENT Chemo C4D1 Denos umab (Prolia) X7Esqmw 10/30/2024 APPOINTMENT Chemo C3D1 Denos umab (Prolia) U4Gtbak 07/31/2024 APPOINTMENT Lab 07/31/2024 APPOINTMENT Lab 07/31/2024 APPOINTMENT Follow-Up 05/01/2024 APPOINTMENT Chemo C2D1 Denos umab (Prolia) W5Vfxlx 05/01/2024 APPOINTMENT Follow-Up 05/01/2024 APPOINTMENT Lab 05/01/2024 APPOINTMENT RTC AGRONOMY PROFESSOR 05/01/2024 APPOINTMENT Lab 04/29/2024 APPOINTMENT Chemo C2D1 Denos umab (Prolia) S1Bqjiw 04/19/2024 APPOINTMENT Chemo C2D1 Denos umab (Prolia) J7Gybby 01/24/2024 APPOINTMENT Follow-Up 12/25/2023 APPOINTMENT Anastrozole Oral 12/25/2023 APPOINTMENT Anastrozole Oral 09/10/2023 LABORDER DEXA scan 04/25/2024 LABORDER Mammogram, scree lashonda, bilateral breast 05/01/2024 LABORDER CBC 05/01/2024 LABORDER CNG PANEL(CMP no Glucose) 07/31/2024 LABORDER CBC 07/31/2024 LABORDER CMP PANEL Reason for Visit Chemo C3D1 Denosumab (Prolia) S1Jdbbp Encounters Date Name 07/31/2024 Breast DCIS Diagnostic Results Date Type Test Units Lower Limit Upper Limit Result Flag Comments Status Ordered By Specimen Source Lab Address 04/22 MAMMO 3D SCREE N BILAT Pt: ERNA MELENDEZ MR#: [id number] 2 : 89 Sex: FAcct: [id number] Accessi on: [id number] Locatio n: [facility] WDCExam Date: 024 11:24 Status: FExam: MAMMO 3D SCREEN BILATOr dered by: DENIZ JACOBS Attendi ng: NONSTAF F, PROVIDE R,..#[id number] M24 - MAMMO 3D SCREEN BILAT.B ILATERA L DIGITAL SCREENI NG MAMMOGR AM 3D/2D WITH CAD: 04/22/20 24CLINI ABELARDO: Screeni ng mammogr am, no complai nts..Co mpariso n is made to exams dated: 3 mammogr am, 06/08/20 22mammo gram, and 06/26/20 21 [facility] The tissue of both breasts is predomi nantly fatty.. Three-D (3D) tomosyn thesis multipl pepe imaging was perform ed..Cur rent study was also evaluat ed with a Compute r Aided Detecti on (CAD) system. There are post-op and radiati on changes , skin thicken ing, trabecu larthic kening, and skin retract ion left breast. No signifi cant masses, calcifi cations , or other finding s are seen ineithe r breast. ..IMPRE SSION: 2 BENIGN FINDING There is no mammogr aphic evidenc e of maligna ncy.Int erval left breast edema seconda ry to left breast conserv ationth erapyRe commend annual mammogr am as imaging follow- up, monthly self-br eastexa m, and annual clinica l breast exam.Th e patient will be notifie d of the results ..This report is electro nically signed. Chantale Brooksn /:2023 18:51:3 4.Imagi ng Technol ogist(s ): [facility] Technol ogist, Fiona [facility] ruth sent: Normal ExamMam mogram BI-RADS : 2 Benign finding Z12.31 FINAL Tahira Alegrett 07/31 Alkal ine phosp hatas e U/L 46.0 116.0 70 FINAL [place] [facility] [place] [facility], [address] [place] [id number] 0 07/31 Calci um mg/dL 8.5 10.1 9.9 FINAL [place] [facility] [place] [facility], [address] [place] [id number] 0 07/31 ALT/S GPT U/L 12.0 78.0 14 [facility] [place] [facility] [address] [place] [id number] 0 07/31 Chlor vee mmol/L 98.0 107.0 104 FINAL [place] [facility] [place] [facility], [address] [place] [id number] 0 07/31 Total prote in g/dL 6.4 8.2 7.6 FINAL [place] [facility] o [place] [facility], [address] [place] [id number] 0 07/31 eGFR (2020 ) V 101.67 [facility] [place] [facility] [address] [place] [id number] 0 07/31 BUN mg/dL 7.0 18.0 16 FINAL [place] [facility] [place] [facility], [address] [place] [id number] 0 07/31 Creat inine mg/dL 0.55 1.02 0.60 FINAL [place] [facility] [place] [facility], [address] [place] [id number] 0 07/31 AST/S GOT U/L 15.0 37.0 22 FINAL [place] [facility] [place] [facility], [address] [place] [id number] 0 07/31 Album in g/dL 3.4 5.0 4.5 FINAL [place] [facility] [place] [facility], [address] [place] [address] [place] [address] 0 07/31 Bilir ubin, total mg/dL 0.2 1.0 0.70 FINAL [place] [facility]ar[facility] [place] [facility], [address] [place] [address] [place] [address] 0 07/31 Sodiu m mmol/L 136.0 145.0 138 FINAL [place] [facility] [place] [facility], [address] [place] [address] [place] [address] 0 07/31 Potas sium mmol/L 3.5 5.1 4.6 FINAL [place] [facility] [place] [facility], [address] [place] [address] [place] [address] 0 07/31 Danilo # (ANC) K/uL 1.8 7.8 3.2 FINAL [place] [facility] [place] [facility], [address] [place] [address] [place] [address] 0 07/31 MCV fL 79.0 101.0 98.3 FINAL [place] [facility] [place] [facility], [address] [place] [id number] 0 07/31 MO # K/uL 0.1 0.8 0.5 FINAL [place] [facility] [place] [facility], [address] [place] [id number] 0 07/31 IG % % 0.0 0.0 0.2 High FINAL [place] [facility] [place] [facility], [address] [place] [id number] 0 07/31 MO % % 0.0 15.0 9.8 FINAL [facility] [place] [facility], [address] [place] [id number] 0 07/31 IG # K/uL 0.0 0.0 0.0 FINAL [facility] [place] [facility], [address] [place] [id number] 0 07/31 EO # K/uL 0.0 1.0 0.1 FINAL [facility] [place] [facility], [address] [place] [id number] 0 07/31 EO % % 0.0 6.0 1.9 FINAL [facility] [place] [facility], [address] [place] [id number] 0 07/31 RBC M/uL 4.2 5.4 4.14 Low FINAL [facility] [place] [facility], [address] [place] [id number] 0 07/31 MPV fL 9.4 11.4 8.5 Low FINAL [facility] [place] [facility], [address] [place] [id number] 0 07/31 WBC K/uL 4.0 11.0 5.4 FINAL [facility] [place] [facility], [address] [place] [id number] 0 07/31 PLT K/uL 130.0 400.0 196 FINAL [facility] [place] [facility], [address] [place] [id number] 0 07/31 BA % % 0.0 3.0 0.4 FINAL [facility] [place] [facility], [address] [place] [id number] 0 07/31 BA # K/uL 0.0 1.3 0.0 FINAL [facility] [place] [facility], [address] [place] [id number] 0 07/31 HGB g/dL 12.0 16.0 13.7 FINAL [facility] [place] [facility], [address] [place] [id number] 0 07/31 RDW-C V, % % 8.0 15.0 12.7 FINAL [facility] [place] [facility], [address] [place] [id number] 0 07/31 LY % % 20.0 38.0 27.8 FINAL [place] [facility] [place] [facility], [address] [place] [id number] 0 07/31 MCH pg 27.0 31.0 33.1 High FINAL [place] [facility] [place] [facility], [address] [place] [id number] 0 07/31 LY # K/uL 0.0 4.8 1.5 FINAL [place] [facility] [place] [facility], [address] [place] [id number] 0 07/31 MCHC g/dL 32.0 37.0 33.7 FINAL [place] [facility] [place] [facility], [address] [place] [id number] 0 07/31 HCT % 37.0 47.0 40.7 FINAL [place] [facility] [place] [facility], [address] [place] [id number] 0 07/31 Danilo % % 58.0 71.0 59.9 FINAL [place] [facility] [place] [facility], [address] [place] [id number] 0 Medications Administered Date Name Route Dose Frequency Instructions Start Date End Date Status 024 1 ML denosumab 60 MG/ML Prefilled Syringe subcutaneously 60.0 mg once Administer SQ injection in the upper arm, upper thigh or abdomen. 024 2023 inactive Medications Date Name Route Dose Frequency Instructions Start Date End Date Status Cetirizine Oral a ctive Alprazolam Oral i nactive Cholecalciferol Oral active Methylprednisol one Acetate IM inact samantha 04/25 methylprednisol one 2000 MG Injection intravenously 125.0 mg Re-initiate treatment only upon physician approval. 2028 active 04/25 famotidine 10 MG/ML Injectable [...] physician approval. 2028 active 04/25 1 ML denosumab 60 MG/ML Prefilled Syringe subcutaneously 60.0 mg once Administer SQ injection in the upper arm, upper thigh or abdomen. 2028 active 10/25 famotidine 10 MG/ML Injectable Solution intravenously 20.0 mg Re-initiate treatment only upon physician approval. 2027 active 10/25 methylprednisol one 2000 MG Injection intravenously 125.0 mg Re-initiate [...] only upon physician approval. 2027 active 04/26 hydrocortisone 100 MG Injection intravenously 100.0 mg Re-initiate treatment only upon physician approval. 2027 active 04/26 famotidine 10 MG/ML Injectable Solution intravenously 20.0 mg Re-initiate treatment only upon physician approval. 2027 active 04/26 1 ML denosumab 60 MG/ML Prefilled Syringe subcutaneously 60.0 mg once Administer SQ injection in the upper arm, upper thigh or abdomen. 2027 active 04/26 methylprednisol one 2000 MG Injection intravenously 125.0 mg Re-initiate treatment only upon physician approval. 2027 active 10/27 diphenhydramine hydrochloride 0.5 MG/ML Injectable Solution intravenously 50.0 mg Re-initiate treatment only upon physician approval. 2026 active 10/27 1 ML denosumab 60 MG/ML Prefilled Syringe subcutaneously 60.0 mg once Administer SQ injection in the upper arm, upper thigh or abdomen. 2026 active 10/27 1 ML epinephrine 1 MG/ML Injection intramuscularly 0.3 mg once Re-initiate treatment only upon physician approval. 2026 active 10/27 hydrocortisone 100 MG Injection intravenously 100.0 mg Re-initiate treatment only upon physician approval. 2026 active 10/27 famotidine 10 MG/ML Injectable Solution intravenously 20.0 mg Re-initiate treatment only upon physician approval. 2026 active 10/27 methylprednisol one 2000 MG Injection intravenously 125.0 mg Re-initiate treatment only upon physician approval. 2026 active 04/28 hydrocortisone 100 MG Injection intravenously 100.0 mg Re-initiate treatment only upon physician approval. 2026 active 04/28 1 ML denosumab 60 MG/ML Prefilled Syringe subcutaneously 60.0 mg once Administer SQ injection in the upper arm, upper thigh or abdomen. 2026 active 04/28 famotidine 10 MG/ML Injectable Solution intravenously 20.0 mg Re-initiate treatment only upon physician approval. 2026 active 04/28 1 ML epinephrine 1 MG/ML Injection intramuscularly 0.3 mg once Re-initiate treatment only upon physician approval. 2026 active 04/28 diphenhydramine hydrochloride 0.5 MG/ML Injectable Solution intravenously 50.0 mg Re-initiate treatment only upon physician approval. 2026 active 04/28 methylprednisol one 2000 MG Injection intravenously 125.0 mg Re-initiate treatment only upon physician approval. 2026 active 10/28 1 ML epinephrine 1 MG/ML Injection intramuscularly 0.3 mg once Re-initiate treatment only upon physician approval. 2025 active 10/28 methylprednisol one 2000 MG Injection intravenously 125.0 mg Re-initiate treatment only upon physician approval. 2025 active 10/28 1 ML denosumab 60 MG/ML Prefilled Syringe subcutaneously 60.0 mg once Administer SQ injection in the upper arm, upper thigh or abdomen. 2025 active 10/28 hydrocortisone 100 MG Injection intravenously 100.0 mg Re-initiate treatment only upon physician approval. 2025 active 10/28 diphenhydramine hydrochloride 0.5 MG/ML Injectable Solution intravenously 50.0 mg Re-initiate treatment only upon physician approval. 2025 active 10/28 famotidine 10 MG/ML Injectable Solution intravenously 20.0 mg Re-initiate treatment only upon physician approval. 2025 active 04/29 hydrocortisone 100 MG Injection intravenously 100.0 mg Re-initiate treatment only upon physician approval. 2025 active 04/29 methylprednisol one 2000 MG Injection intravenously 125.0 mg Re-initiate treatment only upon physician approval. 2025 active 04/29 diphenhydramine hydrochloride 0.5 MG/ML Injectable Solution intravenously 50.0 mg Re-initiate treatment only upon physician approval. 2025 active 04/29 1 ML denosumab 60 MG/ML Prefilled Syringe subcutaneously 60.0 mg once Administer SQ injection in the upper arm, upper thigh or abdomen. 2025 active 04/29 famotidine 10 MG/ML Injectable Solution intravenously 20.0 mg Re-initiate treatment only upon physician approval. 2025 active 04/29 1 ML epinephrine 1 MG/ML Injection intramuscularly 0.3 mg once Re-initiate treatment only upon physician approval. 2025 active 10/29 famotidine 10 MG/ML Injectable Solution intravenously 20.0 mg Re-initiate treatment only upon physician approval. 2024 active 10/29 1 ML epinephrine 1 MG/ML [...] only upon physician approval. 2024 active 10/29 methylprednisol one 2000 MG Injection intravenously 125.0 mg Re-initiate treatment only upon physician approval. 2024 active 10/29 hydrocortisone 100 MG Injection intravenously 100.0 mg Re-initiate treatment only upon physician approval. 2024 active 04/30 1 ML epinephrine 1 MG/ML Injection intramuscularly 0.3 mg once Re-initiate treatment only upon physician approval. 2024 active 04/30 1 ML denosumab 60 MG/ML Prefilled Syringe subcutaneously 60.0 mg once Administer SQ injection in the upper arm, upper thigh or abdomen. 2024 active 04/30 diphenhydramine hydrochloride 0.5 MG/ML Injectable Solution intravenously 50.0 mg Re-initiate treatment only upon physician approval. 2024 active 04/30 methylprednisol one 2000 MG Injection intravenously 125.0 mg Re-initiate treatment only upon physician approval. 2024 active 04/30 famotidine 10 MG/ML Injectable Solution intravenously 20.0 mg Re-initiate treatment only upon physician approval. 2024 active 04/30 hydrocortisone 100 MG Injection intravenously 100.0 mg Re-initiate treatment only upon physician approval. 2024 active 10/30 1 ML denosumab 60 MG/ML Prefilled Syringe subcutaneously 60.0 mg once Administer SQ injection in the upper arm, upper thigh or abdomen. 2023 active 10/30 hydrocortisone 100 MG Injection intravenously 100.0 mg Re-initiate treatment only upon physician approval. 2023 active 10/30 methylprednisol one 2000 MG Injection intravenously 125.0 mg Re-initiate treatment only upon physician approval. 2023 active 10/30 famotidine 10 MG/ML Injectable Solution intravenously 20.0 mg Re-initiate treatment only upon physician approval. 2023 active 12/20 /2024 1 ML epinephrine 1 MG/ML Injection intramuscularly 0.3 mg once Re-initiate treatment only upon physician approval. 2023 active 10/30 diphenhydramine hydrochloride 0.5 MG/ML Injectable Solution intravenously 50.0 mg Re-initiate treatment only upon physician approval. 2023 active 05/01 hydrocortisone 100 MG Injection intravenously 100.0 mg Re-initiate treatment only upon physician approval. 2023 active 05/01 methylprednisol one 2000 MG Injection intravenously 125.0 mg Re-initiate treatment only upon physician approval. 2023 active 05/01 diphenhydramine hydrochloride 0.5 MG/ML Injectable Solution intravenously 50.0 mg Re-initiate treatment only upon physician approval. 2023 active 05/01 1 ML epinephrine 1 MG/ML Injection intramuscularly 0.3 mg once Re-initiate treatment only upon physician approval. 2023 active 05/01 famotidine 10 MG/ML Injectable Solution intravenously 20.0 mg Re-initiate treatment only upon physician approval. 2023 active 12/25 anastrozole 1 MG Oral Tablet orally 1.0 tablet every day 2023 active Problems Diagnosis Status Date of Diagnosi s Breast DCIS Active Osteopenia (disorder) Active Intestinal malabsorption (disorder) Active Screening mammography (procedure) Active Procedures Date Category Name Instructions Status 01/24/2024 Physician Order RTC AGRONOMY PROFESSOR RTC AGRONOMY PROFESSOR Tahira Jacobs Ordered 04/25/2024 Physician Order Mammogram, boogie gallego, bilateral breast Community Due 04/2024 Ordered 05/01/2024 Physician Order RTC AGRONOMY PROFESSOR RTC AGRONOMY PROFESSOR Tahira Alegrett Ordered 07/31/2024 Physician Order RTC AGRONOMY PROFESSOR RTC AGRONOMY PROFESSOR Tahira Alegrett Ordered Social History Date Name Value Sex Female Vital Signs Date Type Value 07/31/2024 Height 68.00 07/31/2024 Weight 176.00 07/31/2024 Intravascular Systolic 124 07/31/2024 Intravascular Diastolic 78 07/31/2024 Heart Beat 74.00 07/31/2024 Body Temperature 97.60 07/31/2024 Pain Scale 0.00 07/31/2024 Oxygen Saturation 98.00 07/31/2024 BMI 26.76
--- OUTSIDE RECORDS SUMMARY | 2024-12-07 13:43 | XMS_ITS ---
Author Name Interface, [id number] lity Address [address] [place] [address] [facility] ters Address [address] [place] [address] Care Team Providers Care Saturation Equipment Operator Name Role Phone SanilacMoriah connortie Unavailable Unavailable Allergies and Adverse Reactions Medication/Group Name Reaction Severity Date No known allergies Plan Date Type Value 04/25/2029 APPOINTMENT Chemo C12D1 Dylon sumab (Prolia) [id number] 10/25/2028 APPOINTMENT Chemo C11D1 Dylon sumab (Prolia) R6Dfyax 04/26/2028 APPOINTMENT Chemo C10D1 Dylon sumab (Prolia) G0Tulng 10/27/2027 APPOINTMENT Chemo C9D1 Denos umab (Prolia) Y2Okvtn 04/28/2027 APPOINTMENT Chemo C8D1 Denos umab (Prolia) O4Emkzt 10/28/2026 APPOINTMENT Chemo C7D1 Denos umab (Prolia) H5Gkhcx 04/29/2026 APPOINTMENT Chemo C6D1 Denos umab (Prolia) B4Tqtei 10/29/2025 APPOINTMENT Chemo C5D1 Denos umab (Prolia) Z3Mrngd 04/30/2025 APPOINTMENT Chemo C4D1 Denos umab (Prolia) W9Dhrhs 10/30/2024 APPOINTMENT Chemo C3D1 Denos umab (Prolia) P5Lrcki 07/31/2024 APPOINTMENT Lab 07/31/2024 APPOINTMENT Follow-Up 07/31/2024 APPOINTMENT Lab 05/01/2024 APPOINTMENT Lab 05/01/2024 APPOINTMENT Chemo C2D1 Denos umab (Prolia) X2Mdpnr 05/01/2024 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 05/01/2024 APPOINTMENT Lab 05/01/2024 APPOINTMENT Follow-Up 04/29/2024 APPOINTMENT Chemo C2D1 Denos umab (Prolia) W4Ufgqp 04/19/2024 APPOINTMENT Chemo C2D1 Denos umab (Prolia) M0Vhbdr 01/24/2024 APPOINTMENT Follow-Up 12/25/2023 APPOINTMENT Anastrozole Oral [...] Reason for Visit Chemo C3D1 Denosumab (Prolia) M4Xmnsv Encounters Date Name 11/29/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 Screening mammograph y (procedure) Diagnostic Results Date Type Test Units Lower Limit Upper Limit Result Flag Comments Status Ordered By Specimen Source Lab Address 11/29 CBC WBC K/uL 4.0 11.0 4.1 [facility]AL [facility] [place] [facility], [address] [place] [id number] 0 11/29 CBC RBC M/uL 4.2 5.4 3.91 Low FINAL [facility] [place] [facility], [address] [place] [id number] 0 11/29 CBC HGB g/dL 12.0 16.0 12.7 FINAL [facility] [place] [facility], [address] [place] [id number] 0 11/29 CBC HCT % 37.0 47.0 38.0 FINAL [facility] [place] [facility], [address] [place] [id number] 0 11/29 CBC MCV fL 79.0 101.0 97.2 FINAL [facility] [place] [facility], [address] [place] [id number] 0 11/29 CBC MCH pg 27.0 31.0 32.5 High FINAL [facility] [place] [facility], [address] [place] [id number] 0 11/29 CBC MCHC g/dL 32.0 37.0 33.4 FINAL [facility] [place] [facility], [address] [place] [id number] 0 11/29 CBC RDW-C V, % % 8.0 15.0 13.1 FINAL [facility] [place] [facility], [address] [place] [id number] 0 11/29 CBC MPV fL 9.4 11.4 8.8 Low [facility] [place] [facility], [address] [place] [id number] 0 11/29 CBC PLT K/uL 130.0 400.0 163 [facility]AL [facility] [place] [facility], [address] [place] [id number] 0 11/29 CBC Danilo % % 58.0 71.0 53.8 Low FINAL [facility] [place] [facility], [address] [place] [id number] 0 11/29 CBC LY % % 20.0 38.0 31.2 FINAL [facility] [place] [facility], [address] [place] [id number] 0 11/29 CBC MO % % 0.0 15.0 11.6 [facility]AL [facility] [place] [facility], [address] [place] [id number] 0 11/29 CBC EO % % 0.0 6.0 2.9 FINAL [facility] [place] [facility], [address] [place] [id number] 0 11/29 CBC BA % % 0.0 3.0 0.5 [facility]AL [facility] [place] [facility], [address] [place] [id number] 0 11/29 CBC Danilo # (ANC) K/uL 1.8 7.8 2.2 FINAL [facility] [place] [facility], [address] [place] [id number] 0 11/29 CBC LY # K/uL 0.0 4.8 1.3 [facility] [place] [facility], [address] [place] [id number] 0 11/29 CBC MO # K/uL 0.1 0.8 0.5 FINAL [facility] [place] [facility], [address] [place] [id number] 0 11/29 CBC EO # K/uL 0.0 1.0 0.1 [facility]AL [facility] [place] [facility], [address] [place] [id number] 0 11/29 CBC BA # K/uL 0.0 1.3 0.0 [facility]AL [facility] [place] [facility], [address] [place] [id number] 0 11/29 CBC IG # K/uL 0.0 0.0 0.0 [facility]AL [facility] [place] [facility], [address] [place] [id number] 0 11/29 CBC IG % % 0.0 0.0 0.0 [facility]AL [facility] [place] [facility], [address] [place] [id number] 0 11/29 Sodiu m mmol/L 136.0 145.0 140 [facility]AL [facility] [place] [facility], [address] [place] [id number] 0 11/29 Potas sium mmol/L 3.5 5.1 3.7 FINAL [facility] [place] [facility], [address] [place] [id number] 0 11/29 Chlor vee mmol/L 98.0 107.0 107 [facility] [place] [facility], [address] [place] [id number] 0 11/29 Total prote in g/dL 6.4 8.2 7.8 FINAL [facility] [place] [facility], [address] [place] [id number] 0 11/29 Album in g/dL 3.4 5.0 4.1 [facility]AL [facility] [place] [facility], [address] [place] [id number] 0 11/29 Calci um mg/dL 8.5 10.1 9.3 FINAL [facility] [place] [facility], [address] [place] [id number] 0 11/29 BUN mg/dL 7.0 18.0 12 FINAL [facility] [place] [facility], [address] [place] [id number] 0 11/29 Creat inine mg/dL 0.55 1.02 0.53 Low FINAL [facility] [place] [facility], [address] [place] [id number] 0 11/29 Bilir ubin, total mg/dL 0.2 1.0 0.40 [facility] [place] [facility], [address] [place] [id number] 0 11/29 AST/S GOT U/L 15.0 37.0 29 FINAL [facility] [place] [facility], [address] [place] [id number] 0 11/29 ALT/S GPT U/L 12.0 78.0 19 [facility] [place] [facility], [address] [place] [address] [place] [address] 0 11/29 Alkal ine phosp hatas e U/L 46.0 116.0 89 [facility] [place] [facility], [address] [place] [address] [place] [address] 0 11/29 eGFR (2020 ) V 105.20 FINAL [facility] [place] [facility], [address] [place] [id number] 0 05/01 Sodiu m mmol/L 136.0 145.0 139 [facility] [place] [facility], [address] [place] [id number] 0 05/01 Potas sium mmol/L 3.5 5.1 3.8 [facility] [place] [facility], [address] [place] [address] [place] [address] 0 05/01 Chlor vee mmol/L 98.0 107.0 104 FINAL [facility] [place] [facility], [address] [place] [id number] 0 05/01 Total prote in g/dL 6.4 8.2 7.4 [facility] [place] [facility], [address] [place] [id number] 0 05/01 Album in g/dL 3.4 5.0 4.5 [facility] [place] [facility], [address] [place] [id number] 0 05/01 Calci um mg/dL 8.5 10.1 9.5 [facility] [place] [facility], [address] [place] [id number] 0 05/01 BUN mg/dL 7.0 18.0 17 [facility] [place] [facility], [address] [place] [id number] 0 05/01 Creat inine mg/dL 0.55 1.02 0.58 [facility] [place] [facility], [address] [place] [id number] 0 05/01 Bilir ubin, total mg/dL 0.2 1.0 0.40 [facility] [place] [facility], [address] [place] [id number] 0 05/01 AST/S GOT U/L 15.0 37.0 27 [facility] [place] [facility], [address] [place] [id number] 0 05/01 ALT/S GPT U/L 12.0 78.0 15 [facility] [place] [facility], [address] [place] [address] [place] [address] 0 05/01 Alkal ine phosp hatas e U/L 46.0 116.0 75 [facility] [place] [facility], [address] [place] [address] [place] [address] 0 05/01 eGFR (2020 ) V 102.67 [facility] [place] [facility], [address] [place] [address] [place] [address] 0 05/01 CBC WBC K/uL 4.0 11.0 5.2 FINAL [facility] [place] [facility], [address] [place] [id number] 0 05/01 CBC RBC M/uL 4.2 5.4 3.93 Low [facility] [place] [facility], [address] [place] [id number] 0 05/01 CBC HGB g/dL 12.0 16.0 13.0 FINAL [facility] [place] [facility], [address] [place] [id number] 0 05/01 CBC HCT % 37.0 47.0 37.9 [facility] [place] [facility], [address] [place] [id number] 0 05/01 CBC MCV fL 79.0 101.0 96.4 FINAL [facility] [place] [facility], [address] [place] [id number] 0 05/01 CBC MCH pg 27.0 31.0 33.1 High FINAL [facility] [place] [facility], [address] [place] [id number] 0 05/01 CBC MCHC g/dL 32.0 37.0 34.3 FINAL [facility] [place] [facility], [address] [place] [id number] 0 05/01 CBC RDW-C V, % % 8.0 15.0 12.5 FINAL [facility] [place] [facility], [address] [place] [id number] 0 05/01 CBC MPV fL 9.4 11.4 8.3 Low FINAL [facility] [place] [facility], [address] [place] [id number] 0 05/01 CBC PLT K/uL 130.0 400.0 147 [facility] [place] [facility], [address] [place] [id number] 0 05/01 CBC Danilo % % 58.0 71.0 63.6 FINAL [facility] [place] [facility], [address] [place] [id number] 0 05/01 CBC LY % % 20.0 38.0 25.6 FINAL [facility] [place] [facility], [address] [place] [id number] 0 05/01 CBC MO % % 0.0 15.0 8.1 FINAL [facility] [place] [facility], [address] [place] [id number] 0 05/01 CBC EO % % 0.0 6.0 2.1 FINAL [facility] [place] [facility], [address] [place] [id number] 0 05/01 CBC BA % % 0.0 3.0 0.4 FINAL [facility] [place] [facility], [address] [place] [id number] 0 05/01 CBC Danilo # (ANC) K/uL 1.8 7.8 3.3 FINAL [facility] [place] [facility], [address] [place] [id number] 0 05/01 CBC LY # K/uL 0.0 4.8 1.3 FINAL [facility] [place] [facility], [address] [place] [id number] 0 05/01 CBC MO # K/uL 0.1 0.8 0.4 FINAL [facility] [place] [facility], [address] [place] [id number] 0 05/01 CBC EO # K/uL 0.0 1.0 0.1 FINAL [facility] [place] [facility], [address] [place] [id number] 0 05/01 CBC BA # K/uL 0.0 1.3 0.0 FINAL [facility] [place] [facility], [address] [place] [id number] 0 05/01 CBC IG # K/uL 0.0 0.0 0.0 FINAL [facility] [place] [facility], [address] [place] [id number] 0 05/01 CBC IG % % 0.0 0.0 0.2 High FINAL [facility] [place] [facility], [address] [place] [id number] 0 07/31 WBC K/uL 4.0 11.0 5.4 FINAL [facility] [place] [facility], [address] [place] [id number] 0 07/31 RBC M/uL 4.2 5.4 4.14 Low FINAL [facility] [place] [facility], [address] [place] [id number] 0 07/31 HGB g/dL 12.0 16.0 13.7 FINAL [facility] [place] [facility], [address] [place] [id number] 0 07/31 HCT % 37.0 47.0 40.7 FINAL [facility] [place] [facility], [address] [place] [id number] 0 07/31 MCV fL 79.0 101.0 98.3 FINAL [facility] [place] [facility], [address] [place] [id number] 0 07/31 MCH pg 27.0 31.0 33.1 High FINAL [facility] [place] [facility], [address] [place] [id number] 0 07/31 MCHC g/dL 32.0 37.0 33.7 FINAL [facility] [place] [facility], [address] [place] [id number] 0 07/31 RDW-C V, % % 8.0 15.0 12.7 FINAL [facility] [place] [facility], [address] [place] [id number] 0 07/31 MPV fL 9.4 11.4 8.5 Low FINAL [facility] [place] [facility], [address] [place] [id number] 0 07/31 PLT K/uL 130.0 400.0 196 [facility] [place] [facility], [address] [place] [id number] 0 07/31 Danilo % % 58.0 71.0 59.9 FINAL [facility] [place] [facility], [address] [place] [id number] 0 07/31 LY % % 20.0 38.0 27.8 FINAL [facility] [place] [facility], [address] [place] [id number] 0 07/31 MO % % 0.0 15.0 9.8 FINAL [facility] [place] [facility], [address] [place] [id number] 0 07/31 EO % % 0.0 6.0 1.9 FINAL [facility] [place] [facility], [address] [place] [id number] 0 07/31 BA % % 0.0 3.0 0.4 FINAL [facility] [place] [facility], [address] [place] [id number] 0 07/31 Danilo # (ANC) K/uL 1.8 7.8 3.2 FINAL [facility] [place] [facility], [address] [place] [id number] 0 07/31 LY # K/uL 0.0 4.8 1.5 [facility] [place] [facility], [address] [place] [id number] 0 07/31 MO # K/uL 0.1 0.8 0.5 [facility] [place] [facility], [address] [place] [id number] 0 07/31 EO # K/uL 0.0 1.0 0.1 FINAL [facility] [place] [facility], [address] [place] [id number] 0 07/31 BA # K/uL 0.0 1.3 0.0 FINAL [facility] [place] [facility], [address] [place] [id number] 0 07/31 IG # K/uL 0.0 0.0 0.0 FINAL [facility] [place] [facility], [address] [place] [id number] 0 07/31 IG % % 0.0 0.0 0.2 High FINAL [facility] [place] [facility], [address] [place] [id number] 0 07/31 Sodiu m mmol/L 136.0 145.0 138 FIN[facility] [place] [facility], [address] [place] [id number] 0 07/31 Potas sium mmol/L 3.5 5.1 4.6 FINAL [facility] [place] [facility], [address] [place] [id number] 0 07/31 Chlor vee mmol/L 98.0 107.0 104 [facility] [place] [facility], [address] [place] [id number] 0 07/31 Total prote in g/dL 6.4 8.2 7.6 FINAL [facility] [place] [facility], [address] [place] [id number] 0 07/31 Album in g/dL 3.4 5.0 4.5 FINAL [facility] [place] [facility], [address] [place] [id number] 0 07/31 Calci um mg/dL 8.5 10.1 9.9 FINAL [facility] [place] [facility], [address] [place] [id number] 0 07/31 BUN mg/dL 7.0 18.0 16 FINAL [facility] [place] [facility], [address] [place] [id number] 0 07/31 Creat inine mg/dL 0.55 1.02 0.60 FINAL [facility] [place] [facility], [address] [place] [id number] 0 07/31 Bilir ubin, total mg/dL 0.2 1.0 0.70 FINAL [facility] [place] [facility], [address] [place] [id number] 0 07/31 AST/S GOT U/L 15.0 37.0 22 FINAL [facility] [place] [facility], [address] [place] [id number] 0 07/31 ALT/S GPT U/L 12.0 78.0 14 [facility] [place] [facility], [address] [place] [id number] 0 07/31 Alkal ine phosp hatas e U/L 46.0 116.0 70 [facility] [place] [facility] [address] [place] [id number] 0 07/31 eGFR (2020 ) V 101.67 [facility] [place] [facility], [address] [place] [id number] 0 Medications Date Name Route Dose Frequency [...] Notes Section * Nurse Note for: 31-JUL-24 [facility] Nurse Note Print Location: Unknown Date/Time Printed: 12/07/2024 13:43 ([facility]) Patient: Erna Jackson Sex: Female : 1960 [...] on 12:32 * Nurse Note for: 01-MAY-24 [facility] Nurse Note Print Location: Unknown Date/Time Printed: 12/07/2024 13:43 ([facility]) Patient: Erna Jackson Sex: Female : 1960 [...] Incident to: [place] Randall MD Denosumab (Prolia) [id number] Immunotherapy Denosumab Subcutaneous (60 mg/mL - Prolia), 60 mg/mL syringe, 60 mg subcutaneously once, Instructions: Administer SQ injection in the upper arm, upper thigh or abdomen., Allow Substitution GIVEN: 60 mg Pharmacy plan: Dose Form Description: 60 mg/mL syringe Dispense/Waste: 60/0 mg Pharmacy dispense: [facility]: [id number] Dispense/Waste: 60/0 mg Given Dose/Discard: 60/0 mg Admin Details: Injection Location: Right-Upper Arm Time: 15:23 Checked By: Rashida Szymanski on 05/01/2024 15:23 * Nurse Note for: 24-JAN-24 [facility] Nurse Note Print Location: Unknown Date/Time Printed: 12/07/2024 13:43 ([facility]) Patient: Erna Jackson Sex: Female : 1960 [...] on 15:06 * Nurse Note for: 29-NOV-23 [facility] Nurse Note Print Location: Unknown Date/Time Printed: 12/07/2024 13:43 ([facility]) Patient: Erna Jackson Sex: Female : 1960 [...]
--- OUTSIDE RECORDS SUMMARY | 2024-12-07 13:43 | XMS_ITS ---
Author Name Interface, [id number] lity Address [address] [place] [address] [facility] ters Address [address] [place] [address] Care Team Providers Care Oil Developer Name Role Phone [place] [facility] Martha Unavailable Allergies and Adverse Reactions Medication/Group Name Reaction Severity Date No known allergies Plan Date Type Value 04/25/2029 APPOINTMENT Chemo C12D1 Dylon sumab (Prolia) [id number] 10/25/2028 APPOINTMENT Chemo C11D1 Dylon sumab (Prolia) J1Adikg 04/26/2028 APPOINTMENT Chemo C10D1 Dylon sumab (Prolia) L8Exedy 10/27/2027 APPOINTMENT Chemo C9D1 Denos umab (Prolia) K9Hfmwv 04/28/2027 APPOINTMENT Chemo C8D1 Denos umab (Prolia) K6Hzsrl 10/28/2026 APPOINTMENT Chemo C7D1 Denos umab (Prolia) A6Hqluc 04/29/2026 APPOINTMENT Chemo C6D1 Denos umab (Prolia) F5Uygfc 10/29/2025 APPOINTMENT Chemo C5D1 Denos umab (Prolia) P3Nszrw 04/30/2025 APPOINTMENT Chemo C4D1 Denos umab (Prolia) O0Qlcdn 10/30/2024 APPOINTMENT Chemo C3D1 Denos umab (Prolia) F5Oxpqc 07/31/2024 APPOINTMENT Lab 07/31/2024 APPOINTMENT Follow-Up 07/31/2024 APPOINTMENT Lab 07/31/2024 LABORDER CBC 07/31/2024 LABORDER CMP PANEL Reason for Visit Chemo C3D1 Denosumab (Prolia) Q6Gyarf Encounters Date Name 07/31/2024 Breast DCIS Diagnostic Results Date Type Test Units Lower Limit Upper Limit Result Flag Comments Status Ordered By Specimen Source Lab Address 09/20 /2024 WBC K/uL 4.0 11.0 5.4 FINAL [facility] [place] [facility], [address] [place] [id number] 0 07/31 RBC M/uL 4.2 5.4 4.14 Low [facility] [place] [facility], [address] [place] [id number] 0 07/31 HGB g/dL 12.0 16.0 13.7 FINAL [facility] [place] [facility], [address] [place] [id number] 0 07/31 HCT % 37.0 47.0 40.7 FINAL [facility] [place] [facility], [address] [place] [id number] 0 07/31 MCV fL 79.0 101.0 98.3 FINAL [facility] [place] [facility], [address] [place] [id number] 0 07/31 MCH pg 27.0 31.0 33.1 High FINAL [facility] [place] [facility], [address] [place] [id number] 0 07/31 MCHC g/dL 32.0 37.0 33.7 FINAL [facility] [place] [facility], [address] [place] [id number] 0 07/31 RDW-C V, % % 8.0 15.0 12.7 FINAL [facility] [place] [facility], [address] [place] [id number] 0 07/31 MPV fL 9.4 11.4 8.5 Low FINAL [facility] [place] [facility], [address] [place] [id number] 0 07/31 PLT K/uL 130.0 400.0 196 FINAL [facility] [place] [facility], [address] [place] [id number] 0 07/31 Danilo % % 58.0 71.0 59.9 [facility] [place] [facility], [address] [place] [id number] 0 07/31 LY % % 20.0 38.0 27.8 FINAL [facility] [place] [facility], [address] [place] [id number] 0 07/31 MO % % 0.0 15.0 9.8 FINAL [facility] [place] [facility], [address] [place] [id number] 0 07/31 EO % % 0.0 6.0 1.9 FINAL [facility] [place] [facility], [address] [place] [id number] 0 07/31 BA % % 0.0 3.0 0.4 FINAL [facility] [place] [facility], [address] [place] [id number] 0 07/31 Danilo # (ANC) K/uL 1.8 7.8 3.2 FINAL [facility] [place] [facility], [address] [place] [id number] 0 07/31 LY # K/uL 0.0 4.8 1.5 FINAL [facility] [place] [facility], [address] [place] [id number] 0 07/31 MO # K/uL 0.1 0.8 0.5 FINAL [facility] [place] [facility], [address] [place] [id number] 0 07/31 EO # K/uL 0.0 1.0 0.1 FINAL [facility] [place] [facility], [address] [place] [id number] 0 07/31 BA # K/uL 0.0 1.3 0.0 [facility]AL [facility] [place] [facility], [address] [place] [id number] 0 07/31 IG # K/uL 0.0 0.0 0.0 FINAL [facility] [place] [facility], [address] [place] [id number] 0 07/31 IG % % 0.0 0.0 0.2 High FINAL [facility] [place] [facility], [address] [place] [id number] 0 07/31 Sodiu m mmol/L 136.0 145.0 138 FINAL [facility] [place] [facility], [address] [place] [id number] 0 07/31 Potas sium mmol/L 3.5 5.1 4.6 FINAL [facility] [place] [facility], [address] [place] [id number] 0 07/31 Chlor vee mmol/L 98.0 107.0 104 [facility] [place] [facility], [address] [place] [id number] 0 07/31 Total prote in g/dL 6.4 8.2 7.6 [facility] [place] [facility], [address] [place] [id number] 0 07/31 Album in g/dL 3.4 5.0 4.5 [facility] [place] [facility], [address] [place] [id number] 0 07/31 Calci um mg/dL 8.5 10.1 9.9 [facility] [place] [facility], [address] [place] [id number] 0 07/31 BUN mg/dL 7.0 18.0 16 [facility] [place] [facility], [address] [place] [id number] 0 07/31 Creat inine mg/dL 0.55 1.02 0.60 [facility] [place] [facility], [address] [place] [id number] 0 07/31 Bilir ubin, total mg/dL 0.2 1.0 0.70 [facility] [place] [facility], [address] [place] [id number] 0 07/31 AST/S GOT U/L 15.0 37.0 22 [facility] [place] [facility], [address] [place] [id number] 0 07/31 ALT/S GPT U/L 12.0 78.0 14 [facility] [place] [facility], [address] [place] [id number] 0 07/31 Alkal ine phosp hatas e U/L 46.0 116.0 70 [facility] [place] [facility], [address] [place] [id number] 0 07/31 eGFR (2020 ) V 101.67 [facility] [place] [facility], [address] [place] [id number] 0 Medications Date Name Route Dose Frequency [...] Notes Section * Nurse Note for: 31-JUL-24 [facility] Nurse Note Print Location: Unknown Date/Time Printed: 12/07/2024 13:43 ([facility]) Patient: Erna Jackson Sex: Female : 1960 [...]
--- OUTSIDE RECORDS SUMMARY | 2024-12-07 13:44 | XMS_ITS ---
Author Name Interface, [id number] lity Address [address] [place] [address] [facility] ters Address [address] [place] [address] Care Team Providers Care Stone Lathe Operator Name Role Phone MidlandMoriah connortie Unavailable Unavailable Allergies and Adverse Reactions Medication/Group Name Reaction Severity Date No known allergies Plan Date Type Value 04/25/2029 APPOINTMENT Chemo C12D1 Dylon sumab (Prolia) T7Jsavw 10/25/2028 APPOINTMENT Chemo C11D1 Dylon sumab (Prolia) X1Cckpn 04/26/2028 APPOINTMENT Chemo C10D1 Dylon sumab (Prolia) X0Ibytl 10/27/2027 APPOINTMENT Chemo C9D1 Denos umab (Prolia) U2Csmwu 04/28/2027 APPOINTMENT Chemo C8D1 Denos umab (Prolia) A5Diwyh 10/28/2026 APPOINTMENT Chemo C7D1 Denos umab (Prolia) V6Jgjju 04/29/2026 APPOINTMENT Chemo C6D1 Denos umab (Prolia) D9Kfoqq 10/29/2025 APPOINTMENT Chemo C5D1 Denos umab (Prolia) X7Tolvv 04/30/2025 APPOINTMENT Chemo C4D1 Denos umab (Prolia) V0Bevkc 10/30/2024 APPOINTMENT Chemo C3D1 Denos umab (Prolia) F5Nocrj 07/31/2024 APPOINTMENT Lab 07/31/2024 APPOINTMENT Follow-Up 07/31/2024 APPOINTMENT Lab 05/01/2024 APPOINTMENT Lab 05/01/2024 APPOINTMENT Chemo C2D1 Denos umab (Prolia) M5Kbdwp 05/01/2024 APPOINTMENT 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 05/01/2024 APPOINTMENT Lab 05/01/2024 APPOINTMENT Follow-Up 04/29/2024 APPOINTMENT Chemo C2D1 Denos umab (Prolia) L9Vvams 04/19/2024 APPOINTMENT Chemo C2D1 Denos umab (Prolia) O9Txdrf 01/24/2024 APPOINTMENT Follow-Up 12/25/2023 APPOINTMENT Anastrozole Oral [...] Reason for Visit Chemo C3D1 Denosumab (Prolia) V9Loart Encounters Date Name 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/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 Screening mammograph y (procedure) Diagnostic Results Date Type Test Units Lower Limit Upper Limit Result Flag Comments Status Ordered By Specimen Source Lab Address 11/29 CBC WBC K/uL 4.0 11.0 4.1 FINAL [facility] [place] [facility], [address] [place] [id number] 0 11/29 CBC RBC M/uL 4.2 5.4 3.91 Low FINAL [facility] [place] [facility], [address] [place] [id number] 0 11/29 CBC HGB g/dL 12.0 16.0 12.7 FINAL [facility] [place] [facility], [address] [place] [id number] 0 11/29 CBC HCT % 37.0 47.0 38.0 FINAL [facility] [place] [facility], [address] [place] [id number] 0 11/29 CBC MCV fL 79.0 101.0 97.2 FINAL [facility] [place] [facility], [address] [place] [id number] 0 11/29 CBC MCH pg 27.0 31.0 32.5 High FINAL [facility] [place] [facility], [address] [place] [id number] 0 11/29 CBC MCHC g/dL 32.0 37.0 33.4 FINAL [facility] [place] [facility], [address] [place] [id number] 0 11/29 CBC RDW-C V, % % 8.0 15.0 13.1 FINAL [facility] [place] [facility], [address] [place] [id number] 0 11/29 CBC MPV fL 9.4 11.4 8.8 Low [facility] [place] [facility], [address] [place] [id number] 0 11/29 CBC PLT K/uL 130.0 400.0 163 FINAL [facility] [place] [facility], [address] [place] [id number] 0 11/29 CBC Danilo % % 58.0 71.0 53.8 Low FINAL [facility] [place] [facility], [address] [place] [id number] 0 11/29 CBC LY % % 20.0 38.0 31.2 FINAL [facility] [place] [facility], [address] [place] [id number] 0 11/29 CBC MO % % 0.0 15.0 11.6 FINAL [facility] [place] [facility], [address] [place] [id number] 0 11/29 CBC EO % % 0.0 6.0 2.9 FINAL [facility] [place] [facility], [address] [place] [id number] 0 11/29 CBC BA % % 0.0 3.0 0.5 FINAL [facility] [place] [facility], [address] [place] [id number] 0 11/29 CBC Danilo # (ANC) K/uL 1.8 7.8 2.2 FINAL [facility] [place] [facility], [address] [place] [id number] 0 11/29 CBC LY # K/uL 0.0 4.8 1.3 [facility]AL [facility] [place] [facility], [address] [place] [id number] 0 11/29 CBC MO # K/uL 0.1 0.8 0.5 FINAL [facility] [place] [facility], [address] [place] [id number] 0 11/29 CBC EO # K/uL 0.0 1.0 0.1 FINAL [facility] [place] [facility], [address] [place] [id number] 0 11/29 CBC BA # K/uL 0.0 1.3 0.0 FINAL [facility] [place] [facility], [address] [place] [id number] 0 11/29 CBC IG # K/uL 0.0 0.0 0.0 FINAL [facility] [place] [facility], [address] [place] [id number] 0 11/29 CBC IG % % 0.0 0.0 0.0 FINAL [facility] [place] [facility], [address] [place] [id number] 0 11/29 Sodiu m mmol/L 136.0 145.0 140 FINAL [facility] [place] [facility], [address] [place] [id number] 0 11/29 Potas sium mmol/L 3.5 5.1 3.7 FINAL [facility] [place] [facility], [address] [place] [id number] 0 11/29 Chlor vee mmol/L 98.0 107.0 107 FINAL [facility] [place] [facility], [address] [place] [id number] 0 11/29 Total prote in g/dL 6.4 8.2 7.8 FINAL [facility] [place] [facility], [address] [place] [id number] 0 11/29 Album in g/dL 3.4 5.0 4.1 FINAL [facility] [place] [facility], [address] [place] [id number] 0 11/29 Calci um mg/dL 8.5 10.1 9.3 FINAL [facility] [place] [facility], [address] [place] [id number] 0 11/29 BUN mg/dL 7.0 18.0 12 FINAL [facility] [place] [facility], [address] [place] [id number] 0 11/29 Creat inine mg/dL 0.55 1.02 0.53 Low FINAL [facility] [place] [facility], [address] [place] [id number] 0 11/29 Bilir ubin, total mg/dL 0.2 1.0 0.40 [facility] [place] [facility], [address] [place] [id number] 0 11/29 AST/S GOT U/L 15.0 37.0 29 FINAL [facility] [place] [facility], [address] [place] [id number] 0 11/29 ALT/S GPT U/L 12.0 78.0 19 [facility] [place] [facility], [address] [place] [address] [place] [address] 0 11/29 Alkal ine phosp hatas e U/L 46.0 116.0 89 [facility] [place] [facility], [address] [place] [address] [place] [address] 0 11/29 eGFR (2020 ) V 105.20 FINAL [facility] [place] [facility], [address] [place] [id number] 0 05/01 Sodiu m mmol/L 136.0 145.0 139 [facility] [place] [facility], [address] [place] [id number] 0 05/01 Potas sium mmol/L 3.5 5.1 3.8 [facility] [place] [facility], [address] [place] [address] [place] [address] 0 05/01 Chlor vee mmol/L 98.0 107.0 104 FINAL [facility] [place] [facility], [address] [place] [id number] 0 05/01 Total prote in g/dL 6.4 8.2 7.4 [facility] [place] [facility], [address] [place] [id number] 0 05/01 Album in g/dL 3.4 5.0 4.5 [facility] [place] [facility], [address] [place] [id number] 0 05/01 Calci um mg/dL 8.5 10.1 9.5 [facility] [place] [facility], [address] [place] [id number] 0 05/01 BUN mg/dL 7.0 18.0 17 [facility] [place] [facility], [address] [place] [id number] 0 05/01 Creat inine mg/dL 0.55 1.02 0.58 [facility] [place] [facility], [address] [place] [id number] 0 05/01 Bilir ubin, total mg/dL 0.2 1.0 0.40 [facility] [place] [facility], [address] [place] [id number] 0 05/01 AST/S GOT U/L 15.0 37.0 27 [facility] [place] [facility], [address] [place] [id number] 0 05/01 ALT/S GPT U/L 12.0 78.0 15 [facility] [place] [facility], [address] [place] [address] [place] [address] 0 05/01 Alkal ine phosp hatas e U/L 46.0 116.0 75 [facility] [place] [facility], [address] [place] [address] [place] [address] 0 05/01 eGFR (2020 ) V 102.67 [facility] [place] [facility], [address] [place] [address] [place] [address] 0 05/01 CBC WBC K/uL 4.0 11.0 5.2 FINAL [facility] [place] [facility], [address] [place] [id number] 0 05/01 CBC RBC M/uL 4.2 5.4 3.93 Low FINAL [facility] [place] [facility], [address] [place] [id number] 0 05/01 CBC HGB g/dL 12.0 16.0 13.0 FINAL [facility] [place] [facility], [address] [place] [id number] 0 05/01 CBC HCT % 37.0 47.0 37.9 FINAL [facility] [place] [facility], [address] [place] [id number] 0 05/01 CBC MCV fL 79.0 101.0 96.4 FINAL [facility] [place] [facility], [address] [place] [id number] 0 05/01 CBC MCH pg 27.0 31.0 33.1 High FINAL [facility] [place] [facility], [address] [place] [id number] 0 05/01 CBC MCHC g/dL 32.0 37.0 34.3 FINAL [facility] [place] [facility], [address] [place] [id number] 0 05/01 CBC RDW-C V, % % 8.0 15.0 12.5 FINAL [facility] [place] [facility], [address] [place] [id number] 0 05/01 CBC MPV fL 9.4 11.4 8.3 Low FINAL [facility] [place] [facility], [address] [place] [id number] 0 05/01 CBC PLT K/uL 130.0 400.0 147 FINAL [facility] [place] [facility], [address] [place] [id number] 0 05/01 CBC Danilo % % 58.0 71.0 63.6 FINAL [facility] [place] [facility], [address] [place] [id number] 0 05/01 CBC LY % % 20.0 38.0 25.6 FINAL [facility] [place] [facility], [address] [place] [id number] 0 05/01 CBC MO % % 0.0 15.0 8.1 FINAL [facility] [place] [facility], [address] [place] [id number] 0 05/01 CBC EO % % 0.0 6.0 2.1 FINAL [facility] [place] [facility], [address] [place] [id number] 0 05/01 CBC BA % % 0.0 3.0 0.4 FINAL [facility] [place] [facility], [address] [place] [id number] 0 05/01 CBC Danilo # (ANC) K/uL 1.8 7.8 3.3 FINAL [facility] [place] [facility], [address] [place] [id number] 0 05/01 CBC LY # K/uL 0.0 4.8 1.3 FINAL [facility] [place] [facility], [address] [place] [id number] 0 05/01 CBC MO # K/uL 0.1 0.8 0.4 FINAL [facility] [place] [facility], [address] [place] [id number] 0 05/01 CBC EO # K/uL 0.0 1.0 0.1 FINAL [facility] [place] [facility], [address] [place] [id number] 0 05/01 CBC BA # K/uL 0.0 1.3 0.0 FINAL [facility] [place] [facility], [address] [place] [id number] 0 05/01 CBC IG # K/uL 0.0 0.0 0.0 FINAL [facility] [place] [facility], [address] [place] [id number] 0 05/01 CBC IG % % 0.0 0.0 0.2 High FINAL [facility] [place] [facility], [address] [place] [id number] 0 07/31 WBC K/uL 4.0 11.0 5.4 FINAL [facility] [place] [facility], [address] [place] [id number] 0 07/31 RBC M/uL 4.2 5.4 4.14 Low FINAL [facility] [place] [facility], [address] [place] [id number] 0 07/31 HGB g/dL 12.0 16.0 13.7 FINAL [facility] [place] [facility], [address] [place] [id number] 0 07/31 HCT % 37.0 47.0 40.7 FINAL [facility] [place] [facility], [address] [place] [id number] 0 07/31 MCV fL 79.0 101.0 98.3 FINAL [facility] [place] [facility], [address] [place] [id number] 0 07/31 MCH pg 27.0 31.0 33.1 High FINAL [facility] [place] [facility], [address] [place] [id number] 0 07/31 MCHC g/dL 32.0 37.0 33.7 FINAL [facility] [place] [facility], [address] [place] [id number] 0 07/31 RDW-C V, % % 8.0 15.0 12.7 FINAL [facility] [place] [facility], [address] [place] [id number] 0 07/31 MPV fL 9.4 11.4 8.5 Low FINAL [facility] [place] [facility], [address] [place] [id number] 0 07/31 PLT K/uL 130.0 400.0 196 FINAL [facility] [place] [facility], [address] [place] [id number] 0 07/31 Danilo % % 58.0 71.0 59.9 FINAL [facility] [place] [facility], [address] [place] [id number] 0 07/31 LY % % 20.0 38.0 27.8 FINAL [facility] [place] [facility], [address] [place] [id number] 0 07/31 MO % % 0.0 15.0 9.8 FINAL [facility] [place] [facility], [address] [place] [id number] 0 07/31 EO % % 0.0 6.0 1.9 FINAL [facility] [place] [facility], [address] [place] [id number] 0 07/31 BA % % 0.0 3.0 0.4 FINAL [facility] [place] [facility], [address] [place] [id number] 0 07/31 Danilo # (ANC) K/uL 1.8 7.8 3.2 FINAL [facility] [place] [facility], [address] [place] [id number] 0 07/31 LY # K/uL 0.0 4.8 1.5 [facility]AL [facility] [place] [facility], [address] [place] [id number] 0 07/31 MO # K/uL 0.1 0.8 0.5 FINAL [facility] [place] [facility], [address] [place] [id number] 0 07/31 EO # K/uL 0.0 1.0 0.1 FINAL [facility] [place] [facility], [address] [place] [id number] 0 07/31 BA # K/uL 0.0 1.3 0.0 FINAL [facility] [place] [facility], [address] [place] [id number] 0 07/31 IG # K/uL 0.0 0.0 0.0 FINAL [facility] [place] [facility], [address] [place] [id number] 0 07/31 IG % % 0.0 0.0 0.2 High FINAL [facility] [place] [facility], [address] [place] [id number] 0 07/31 Sodiu m mmol/L 136.0 145.0 138 FINAL [facility] [place] [facility], [address] [place] [id number] 0 07/31 Potas sium mmol/L 3.5 5.1 4.6 FINAL [facility] [place] [facility], [address] [place] [id number] 0 07/31 Chlor vee mmol/L 98.0 107.0 104 FINAL [facility] [place] [facility], [address] [place] [id number] 0 07/31 Total prote in g/dL 6.4 8.2 7.6 FINAL [facility] [place] [facility], [address] [place] [id number] 0 07/31 Album in g/dL 3.4 5.0 4.5 FINAL [facility] [place] [facility], [address] [place] [id number] 0 07/31 Calci um mg/dL 8.5 10.1 9.9 FINAL [facility] [place] [facility], [address] [place] [id number] 0 07/31 BUN mg/dL 7.0 18.0 16 FINAL [facility] [place] [facility], [address] [place] [id number] 0 07/31 Creat inine mg/dL 0.55 1.02 0.60 FINAL [facility] [place] [facility], [address] [place] [id number] 0 07/31 Bilir ubin, total mg/dL 0.2 1.0 0.70 FINAL [facility] [place] [facility], [address] [place] [id number] 0 07/31 AST/S GOT U/L 15.0 37.0 22 FINAL [facility] [place] [facility], [address] [place] [id number] 0 07/31 ALT/S GPT U/L 12.0 78.0 14 FINAL [facility] [place] [facility], [address] [place] [id number] 0 07/31 Alkal ine phosp hatas e U/L 46.0 116.0 70 [facility] [place] [facility] [address] [place] [id number] 0 07/31 eGFR (2020 ) V 101.67 [facility] [place] [facility], [address] [place] [id number] 0 Medications Date Name Route Dose Frequency [...] Notes Section * Nurse Note for: 31-JUL-24 [facility] Nurse Note Print Location: Unknown Date/Time Printed: 12/07/2024 13:43 ([facility]) Patient: Erna Jackson Sex: Female : 1960 [...] on 12:32 * Nurse Note for: 01-MAY-24 [facility] Nurse Note Print Location: Unknown Date/Time Printed: 12/07/2024 13:43 ([facility]) Patient: Erna Jackson Sex: Female : 1960 [...] Incident to: [facility] MD Denosumab (Prolia) [id number] Immunotherapy Denosumab Subcutaneous (60 mg/mL - Prolia), 60 mg/mL syringe, 60 mg subcutaneously once, Instructions: Administer SQ injection in the upper arm, upper thigh or abdomen., Allow Substitution GIVEN: 60 mg Pharmacy plan: Dose Form Description: 60 mg/mL syringe Dispense/Waste: 60/0 mg Pharmacy dispense: [facility]: [id number] Dispense/Waste: 60/0 mg Given Dose/Discard: 60/0 mg Admin Details: Injection Location: Right-Upper Arm Time: 15:23 Checked By: Rashida Szymanski on 05/01/2024 15:23 * Nurse Note for: 24-JAN-24 [facility] Nurse Note Print Location: Unknown Date/Time Printed: 12/07/2024 13:43 ([facility]) Patient: Erna Jackson Sex: Female : [...] on 15:06 * Nurse Note for: 29-NOV-23 [facility] Nurse Note Print Location: Unknown Date/Time Printed: 12/07/2024 13:43 ([facility]) Patient: Erna Jackson Sex: Female : [...]
== END 2024-12-07 13:51 | disposition home or self-care (01) ==
PROVIDERS: Emergency Provider Nurse Practitioner Family
DX: J01.00 Acute maxillary sinusitis, unspecified (principal)
CPT/HCPCS: 99213; G0463

== ENCOUNTER 2025-04-02 00:50 | Day surgery (SDC) | payer BC, SELFPAY ==
[2025-03-26 12:05] VITALS: BMI 27.4
--- OUTSIDE RECORDS SUMMARY | 2025-04-02 00:53 | XMS_ITS ---
Author Name Interface, [id number] lity Address [address] [place] [address] [facility] ters Address [address] [place] [address] Care Team Providers Care Senior Information Systems Architect Name Role Phone [place] [facility] Martha Unavailable Allergies and Adverse Reactions Medication/Group Name Reaction Severity Date No known allergies Plan Date Type Value 04/25/2029 APPOINTMENT Chemo C12D1 Dylon sumab (Prolia) L7Ntqog 10/25/2028 APPOINTMENT Chemo C11D1 Dylon sumab (Prolia) W8Ayukd 04/26/2028 APPOINTMENT Chemo C10D1 Dylon sumab (Prolia) T3Mtzmi 10/27/2027 APPOINTMENT Chemo C9D1 Denos umab (Prolia) R3Oafmi 04/28/2027 APPOINTMENT Chemo C8D1 Denos umab (Prolia) A0Fnynp 10/28/2026 APPOINTMENT Chemo C7D1 Denos umab (Prolia) X5Dovrp 04/29/2026 APPOINTMENT Chemo C6D1 Denos umab (Prolia) V4Mvmuf 10/29/2025 APPOINTMENT Chemo C5D1 Denos umab (Prolia) B8Vvviv 04/30/2025 APPOINTMENT Chemo C4D1 Denos umab (Prolia) V4Dyeqh 10/30/2024 APPOINTMENT Chemo C3D1 Denos umab (Prolia) C6Noqgk 07/31/2024 APPOINTMENT Lab 07/31/2024 APPOINTMENT Follow-Up 07/31/2024 APPOINTMENT Lab 07/31/2024 LABORDER CBC 07/31/2024 LABORDER CMP PANEL Reason for Visit Chemo C3D1 Denosumab (Prolia) F5Kjbxr Encounters Date Name 07/31/2024 Breast DCIS Diagnostic Results Date Type Test Units Lower Limit Upper Limit Result Flag Comments Status Ordered By Specimen Source Lab Address 09/20 /2024 WBC K/uL 4.0 11.0 5.4 FINAL [facility] [place] [facility], [address] [place] [id number] 0 07/31 RBC M/uL 4.2 5.4 4.14 Low [facility] [place] [facility], [address] [place] [id number] 0 07/31 HGB g/dL 12.0 16.0 13.7 FINAL [facility] [place] [facility], [address] [place] [id number] 0 07/31 HCT % 37.0 47.0 40.7 [facility] [place] [facility], [address] [place] [id number] 0 07/31 MCV fL 79.0 101.0 98.3 FINAL [facility] [place] [facility], [address] [place] [id number] 0 07/31 MCH pg 27.0 31.0 33.1 High FINAL [facility] [place] [facility], [address] [place] [id number] 0 07/31 MCHC g/dL 32.0 37.0 33.7 FINAL [facility] [place] [facility], [address] [place] [id number] 0 07/31 RDW-C V, % % 8.0 15.0 12.7 FINAL [facility] [place] [facility], [address] [place] [id number] 0 07/31 MPV fL 9.4 11.4 8.5 Low FINAL [facility] [place] [facility], [address] [place] [id number] 0 07/31 PLT K/uL 130.0 400.0 196 FINAL [facility] [place] [facility], [address] [place] [id number] 0 07/31 Danilo % % 58.0 71.0 59.9 [facility] [place] [facility], [address] [place] [id number] 0 07/31 LY % % 20.0 38.0 27.8 FINAL [facility] [place] [facility], [address] [place] [id number] 0 07/31 MO % % 0.0 15.0 9.8 FINAL [facility] [place] [facility], [address] [place] [id number] 0 07/31 EO % % 0.0 6.0 1.9 FINAL [facility] [place] [facility], [address] [place] [id number] 0 07/31 BA % % 0.0 3.0 0.4 FINAL [facility] [place] [facility], [address] [place] [id number] 0 07/31 Danilo # (ANC) K/uL 1.8 7.8 3.2 FINAL [facility] [place] [facility], [address] [place] [id number] 0 07/31 LY # K/uL 0.0 4.8 1.5 FINAL [facility] [place] [facility], [address] [place] [id number] 0 07/31 MO # K/uL 0.1 0.8 0.5 FINAL [facility] [place] [facility], [address] [place] [id number] 0 07/31 EO # K/uL 0.0 1.0 0.1 FINAL [facility] [place] [facility], [address] [place] [id number] 0 07/31 BA # K/uL 0.0 1.3 0.0 FINAL [facility] [place] [facility], [address] [place] [id number] 0 07/31 IG # K/uL 0.0 0.0 0.0 FINAL [facility] [place] [facility], [address] [place] [id number] 0 07/31 IG % % 0.0 0.0 0.2 High FINAL [facility] [place] [facility], [address] [place] [id number] 0 07/31 Sodiu m mmol/L 136.0 145.0 138 FINAL [facility] [place] [facility], [address] [place] [id number] 0 07/31 Potas sium mmol/L 3.5 5.1 4.6 FINAL [facility] [place] [facility], [address] [place] [id number] 0 07/31 Chlor vee mmol/L 98.0 107.0 104 [facility] [place] [facility], [address] [place] [id number] 0 07/31 Total prote in g/dL 6.4 8.2 7.6 FIN[facility] [place] [facility], [address] [place] [id number] 0 07/31 Album in g/dL 3.4 5.0 4.5 [facility] [place] [facility], [address] [place] [id number] 0 07/31 Calci um mg/dL 8.5 10.1 9.9 FIN[facility] [place] [facility], [address] [place] [id number] 0 07/31 BUN mg/dL 7.0 18.0 16 [facility] [place] [facility], [address] [place] [id number] 0 07/31 Creat inine mg/dL 0.55 1.02 0.60 FINAL [facility] [place] [facility], [address] [place] [id number] 0 07/31 Bilir ubin, total mg/dL 0.2 1.0 0.70 FINAL [facility] [place] [facility], [address] [place] [id number] 0 07/31 AST/S GOT U/L 15.0 37.0 22 [facility] [place] [facility], [address] [place] [id number] 0 07/31 ALT/S GPT U/L 12.0 78.0 14 [facility] [place] [facility], [address] [place] [id number] 0 07/31 Alkal ine phosp hatas e U/L 46.0 116.0 70 FIN[facility] [place] [facility], [address] [place] [id number] 0 07/31 eGFR (2020 ) V 101.67 [facility] [place] [facility], [address] [place] [id number] 0 Medications Date Name Route Dose Frequency [...] Notes Section * Nurse Note for: 31-JUL-24 [facility] Nurse Note Print Location: Unknown Date/Time Printed: 04/02/2025 00:53 ([facility]) Patient: Erna Jackson Sex: Female : 1960 [...]
--- OUTSIDE RECORDS SUMMARY | 2025-04-02 00:53 | XMS_ITS | Clinical Summary ---
Author Organization [facility] Phong silva Clarita Address [address] [place] [address] Care Team Providers Care Flatwork Washer Name Role Phone Unavailable Primary Care Provider Unavailabl e Allergies No known active allergies Medications cetirizine (ZyrTEC) 10 mg tablet Take 10 mg by mouth. Active Cholecalciferol , Vitamin D3, 50 mcg (2,000 unit) Capsule Take 2,000 Units by mouth daily. Active anastrozole (ARIMIDEX) 1 mg tablet Take 1 Tablet (1 mg) by mouth daily. 90 Tablet 5 Active anastrozole (ARIMIDEX) 1 mg tablet Take 1 mg by mouth daily. 03/15/20 25 Discontinu ed(Reorder ) Active Problems No known active problems Encounters Date Type Department Care Team Description 03/30/2025 External Device Data STL ABSTRACTION Provider, Abstract 03/15/2025 Refill [facility] Oncology and Hematology [facility] [address] [place] [address] Scott Beck MD 02/09/2025 External Device Data STL ABSTRACTION Provider, Abstract 01/27/2025 External Device Data STL ABSTRACTION Provider, Abstract 01/19/2025 External Device Data STL ABSTRACTION Provider, Abstract 01/19/2025 External Device Data STL ABSTRACTION Provider, Abstract 01/18/2025 External Device Data STL ABSTRACTION Provider, Abstract 01/16/2025 External Device Data STL ABSTRACTION Provider, Abstract 01/15/2025 External Device Data STL ABSTRACTION Provider, Abstract 01/12/2025 External Device Data STL ABSTRACTION Provider, Abstract 01/07/2025 3:45 PM CASINO CASHIER Office Visit [facility] Oncology and Hematology - [place] [address] [place] [id number] Scott Beck MD Ductal carcinoma in situ [...] Date Smoking Tobacco: Never Smokeless Tobacco: Never Tobacco Cessation:Counseling Given: Not Answered Alcohol Use Standard Drinks/Week Comments Yes 0 (1 standard drink = 0.6 oz pure alcohol) occasionally maybe once a month Comments Unknown Sex and Gender Information Value Date Recorded Sex Assigned at Not on file Legal Sex Female 1:12 PM CASINO CASHIER Gender Identity Not on file Sexual Orientation Not on file Last Filed Vital Signs Vital Sign Reading Time Taken Comments Blood Pressure 132/79 01/07/2025 4:03 PM CASINO CASHIER Pulse 79 01/07/2025 4:03 PM CASINO CASHIER Temperature 36.1 C (97 F) 01/07/2025 4:03 PM CASINO CASHIER Respiratory Rate 15 01/07/2025 4:03 PM CASINO CASHIER Oxygen Saturation 96% 01/07/2025 4:03 PM CASINO CASHIER Inhaled Oxygen Concentration - - Weight 81.4 kg (179 lb 6.4 oz) 01/07/2025 4:03 P M CASINO CASHIER Height 172.7 cm (5' 8 ) 09/30/2024 11:10 AM CASINO CASHIER Body Mass Index 27.28 09/30/2024 11:10 AM CASINO CASHIER Plan of Treatment Upcoming Encounters Date Type Department Care Team (Late st Contact Info) Description 05/07/2025 10:00 AM CDT Office Visit [facility] Oncology and Hematology [facility] [address] [place] [address] Scott Beck MD [id number] [place] [address] Health Maintenance Due Date Last Done Comments Pre-Diabetes and Diabetes Screening 1960 HPV/Cotest (21-29) 1983 HPV/Cotest (30-65) 1992 COLORECTAL SCREENING 2007 Colorectal Cancer Screening 2007 FIT-DNA Q 3 years 2007 FIT/FOBT Q 1 year 2007 Flex Sig/CT Colonography Q 5 years 2007 INFLUENZA VACCINE (#1) 2024 COVID-19 Vaccine (3 - 2023-2 5 season) 2024 02/21/2021, 01/23/2021 BREAST CANCER SCREENING 04/22/2025 04/22/20 24, 04/22/2024, 07/08/2023, Additional history exists DTAP/TDAP/TD VACCINES (2 - T d or Tdap) 04/10/2026 04/10/2016 CERVICAL CANCER SCREENING 05/13/2026 PAP SMEAR 05/13/2026 05/13/2023 RSV VACCINE (60+ or ) (1 - 1-dose 75+ series) 2037 ZOSTER VACCINE Completed 07/23/2023, 04/01/2023 Insurance BCBS OUT OF STATE
--- OUTSIDE RECORDS SUMMARY | 2025-04-02 00:53 | XMS_ITS ---
Author Name Interface, I3Fnmygav lity Address [address] [place] [address] [facility] ters Address [address] [place] [address] Care Team Providers Care Oleomargarine Maker Name Role Phone LivermoreMoriah connortie Unavailable Unavailable Allergies and Adverse Reactions Medication/Group Name Reaction Severity Date No known allergies Plan Date Type Value 04/25/2029 APPOINTMENT Chemo C12D1 Dylon sumab (Prolia) [id number] 10/25/2028 APPOINTMENT Chemo C11D1 Dylon sumab (Prolia) M2Bdlkm 04/26/2028 APPOINTMENT Chemo C10D1 Dylon sumab (Prolia) E7Djltc 10/27/2027 APPOINTMENT Chemo C9D1 Denos umab (Prolia) F6Ozvjy 04/28/2027 APPOINTMENT Chemo C8D1 Denos umab (Prolia) T9Posvl 10/28/2026 APPOINTMENT Chemo C7D1 Denos umab (Prolia) L4Qrmvm 04/29/2026 APPOINTMENT Chemo C6D1 Denos umab (Prolia) D4Invcg 10/29/2025 APPOINTMENT Chemo C5D1 Denos umab (Prolia) V3Rfcwe 04/30/2025 APPOINTMENT Chemo C4D1 Denos umab (Prolia) Z7Xpsll 10/30/2024 APPOINTMENT Chemo C3D1 Denos umab (Prolia) V5Vashg 07/31/2024 APPOINTMENT Lab 07/31/2024 APPOINTMENT Follow-Up 07/31/2024 APPOINTMENT Lab 05/01/2024 APPOINTMENT Lab 05/01/2024 APPOINTMENT Chemo C2D1 Denos umab (Prolia) R4Frlmz 05/01/2024 APPOINTMENT RTC ARC CUTTER PLASMA ARC 05/01/2024 APPOINTMENT Lab 05/01/2024 APPOINTMENT Follow-Up 04/29/2024 APPOINTMENT Chemo C2D1 Denos umab (Prolia) W5Rfocn 04/19/2024 APPOINTMENT Chemo C2D1 Denos umab (Prolia) J0Gqxms 01/24/2024 APPOINTMENT Follow-Up 12/25/2023 APPOINTMENT Anastrozole Oral [...] Reason for Visit Chemo C3D1 Denosumab (Prolia) C4Wcxba Encounters Date Name 11/29/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 Screening mammograph y (procedure) Diagnostic Results Date Type Test Units Lower Limit Upper Limit Result Flag Comments Status Ordered By Specimen Source Lab Address 11/29 Sodiu m mmol/L 136.0 145.0 140 [facility]AL [facility] [place] [facility], [address] [place] [id number] 0 11/29 Potas sium mmol/L 3.5 5.1 3.7 [facility] [place] [facility], [address] [place] [id number] 0 11/29 Chlor vee mmol/L 98.0 107.0 107 FINAL [facility] [place] [facility], [address] [place] [id number] 0 11/29 Total prote in g/dL 6.4 8.2 7.8 FINAL [facility] [place] [facility], [address] [place] [id number] 0 11/29 Album in g/dL 3.4 5.0 4.1 FINAL [facility] [place] [facility], [address] [place] [id number] 0 11/29 Calci um mg/dL 8.5 10.1 9.3 [facility] [place] [facility], [address] [place] [id number] 0 11/29 BUN mg/dL 7.0 18.0 12 [facility] [place] [facility], [address] [place] [id number] 0 11/29 Creat inine mg/dL 0.55 1.02 0.53 Low [facility] [place] [facility], [address] [place] [id number] 0 11/29 Bilir ubin, total mg/dL 0.2 1.0 0.40 [facility] [place] [facility], [address] [place] [id number] 0 11/29 AST/S GOT U/L 15.0 37.0 29 [facility] [place] [facility], [address] [place] [id number] 0 11/29 ALT/S GPT U/L 12.0 78.0 19 [facility] [place] [facility], [address] [place] [id number] 0 11/29 Alkal ine phosp hatas e U/L 46.0 116.0 89 [facility]AL [facility] [place] [facility], [address] [place] [id number] 0 11/29 eGFR (2020 ) V 105.20 [facility] [place] [facility], [address] [place] [id number] 0 11/29 CBC WBC K/uL 4.0 11.0 4.1 FINAL [facility] [place] [facility], [address] [place] [id number] 0 11/29 CBC RBC M/uL 4.2 5.4 3.91 Low FINAL [facility] [place] [facility], [address] [place] [id number] 0 11/29 CBC HGB g/dL 12.0 16.0 12.7 [facility] [place] [facility], [address] [place] [id number] 0 11/29 CBC HCT % 37.0 47.0 38.0 [facility]AL [facility] [place] [facility], [address] [place] [id number] 0 11/29 CBC MCV fL 79.0 101.0 97.2 FINAL [facility] [place] [facility], [address] [place] [id number] 0 11/29 CBC MCH pg 27.0 31.0 32.5 High FINAL [facility] [place] [facility], [address] [place] [id number] 0 11/29 CBC MCHC g/dL 32.0 37.0 33.4 FINAL [facility] [place] [facility], [address] [place] [id number] 0 11/29 CBC RDW-C V, % % 8.0 15.0 13.1 FINAL [facility] [place] [facility], [address] [place] [id number] 0 11/29 CBC MPV fL 9.4 11.4 8.8 Low FINAL [facility] [place] [facility], [address] [place] [id number] 0 11/29 CBC PLT K/uL 130.0 400.0 163 FINAL [facility] [place] [facility], [address] [place] [id number] 0 11/29 CBC Danilo % % 58.0 71.0 53.8 Low FINAL [facility] [place] [facility], [address] [place] [id number] 0 11/29 CBC LY % % 20.0 38.0 31.2 FINAL [facility] [place] [facility], [address] [place] [id number] 0 11/29 CBC MO % % 0.0 15.0 11.6 FINAL [facility] [place] [facility], [address] [place] [id number] 0 11/29 CBC EO % % 0.0 6.0 2.9 FINAL [facility] [place] [facility], [address] [place] [id number] 0 11/29 CBC BA % % 0.0 3.0 0.5 FINAL [facility] [place] [facility], [address] [place] [id number] 0 11/29 CBC Danilo # (ANC) K/uL 1.8 7.8 2.2 FINAL [facility] [place] [facility], [address] [place] [id number] 0 11/29 CBC LY # K/uL 0.0 4.8 1.3 FINAL [facility] [place] [facility], [address] [place] [id number] 0 11/29 CBC MO # K/uL 0.1 0.8 0.5 FINAL [facility] [place] [facility], [address] [place] [id number] 0 11/29 CBC EO # K/uL 0.0 1.0 0.1 FINAL [facility] [place] [facility], [address] [place] [id number] 0 11/29 CBC BA # K/uL 0.0 1.3 0.0 FINAL [facility] [place] [facility], [address] [place] [id number] 0 11/29 CBC IG # K/uL 0.0 0.0 0.0 FINAL [facility] [place] [facility], [address] [place] [id number] 0 11/29 CBC IG % % 0.0 0.0 0.0 FINAL [facility] [place] [facility], [address] [place] [id number] 0 04/22 MAMMO 3D SCREE N BILAT Pt: ERNA MELENDEZ MR#: [id number] 2 : 965 Sex: FAcct: [id number] Accessi on: [id number] Locatio n: [facility] WDCExam Date: 024 11:24 Status: FExam: MAMMO 3D SCREEN BILATOr dered by: DENIZ ALCALA Attendi ng: NONSTAF F, PROVIDE R,..#[id number] M24 - MAMMO 3D SCREEN BILAT.B ILATERA L DIGITAL SCREENI NG MAMMOGR AM 3D/2D WITH CAD: 04/22/20 24CLINI ABELARDO: Screeni ng mammogr am, no complai nts..Co mpariso n is made to exams dated: 3 mammogr am, 06/08/20 22mammo gram, and 06/26/20 21 [facility] The tissue of both breasts is predomi [...] ..This report is electro nically signed. Chantale Dale /:2023 18:51:3 4.Imagi ng Technol ogist(s ): [facility] Technol ogist, [facility] ruth sent: Normal ExamMam mogram BI-RADS : 2 Benign finding Z12.31 FINAL Tahira Alcala 05/01 Sodiu m mmol/L 136.0 145.0 139 FINAL [facility] [place] [facility], [address] [place] [id number] 0 05/01 Potas sium mmol/L 3.5 5.1 3.8 FINAL [facility] [place] [facility], [address] [place] [id number] 0 05/01 Chlor vee mmol/L 98.0 107.0 104 FINAL [facility] [place] [facility], [address] [place] [id number] 0 05/01 Total prote in g/dL 6.4 8.2 7.4 FINAL [facility] [place] [facility], [address] [place] [id number] 0 05/01 Album in g/dL 3.4 5.0 4.5 FINAL [facility] [place] [facility], [address] [place] [id number] 0 05/01 Calci um mg/dL 8.5 10.1 9.5 [facility] [place] [facility], [address] [place] [id number] 0 05/01 BUN mg/dL 7.0 18.0 17 [facility] [place] [facility], [address] [place] [id number] 0 05/01 Creat inine mg/dL 0.55 1.02 0.58 [facility] [place] [facility], [address] [place] [id number] 0 05/01 Bilir ubin, total mg/dL 0.2 1.0 0.40 [facility] [place] [facility], [address] [place] [id number] 0 05/01 AST/S GOT U/L 15.0 37.0 27 [facility] [place] [facility], [address] [place] [id number] 0 05/01 ALT/S GPT U/L 12.0 78.0 15 [facility] [place] [facility], [address] [place] [id number] 0 05/01 Alkal ine phosp hatas e U/L 46.0 116.0 75 [facility] [place] [facility], [address] [place] [id number] 0 05/01 eGFR (2020 ) V 102.67 [facility] [place] [facility], [address] [place] [id number] 0 05/01 CBC WBC K/uL 4.0 11.0 5.2 [facility]AL [facility] [place] [facility], [address] [place] [id number] 0 05/01 CBC RBC M/uL 4.2 5.4 3.93 Low [facility] [place] [facility], [address] [place] [id number] 0 05/01 CBC HGB g/dL 12.0 16.0 13.0 FINAL [facility] [place] [facility], [address] [place] [id number] 0 05/01 CBC HCT % 37.0 47.0 37.9 FINAL [facility] [place] [facility], [address] [place] [id number] 0 05/01 CBC MCV fL 79.0 101.0 96.4 FINAL [facility] [place] [facility], [address] [place] [id number] 0 05/01 CBC MCH pg 27.0 31.0 33.1 High FINAL [facility] [place] [facility], [address] [place] [id number] 0 05/01 CBC MCHC g/dL 32.0 37.0 34.3 FINAL [facility] [place] [facility], [address] [place] [id number] 0 05/01 CBC RDW-C V, % % 8.0 15.0 12.5 FINAL [facility] [place] [facility], [address] [place] [id number] 0 05/01 CBC MPV fL 9.4 11.4 8.3 Low FINAL [facility] [place] [facility], [address] [place] [id number] 0 05/01 CBC PLT K/uL 130.0 400.0 147 FINAL [facility] [place] [facility], [address] [place] [id number] 0 05/01 CBC Danilo % % 58.0 71.0 63.6 FINAL [facility] [place] [facility], [address] [place] [id number] 0 05/01 CBC LY % % 20.0 38.0 25.6 FINAL [facility] [place] [facility], [address] [place] [id number] 0 05/01 CBC MO % % 0.0 15.0 8.1 FINAL [facility] [place] [facility], [address] [place] [id number] 0 05/01 CBC EO % % 0.0 6.0 2.1 FINAL [facility] [place] [facility], [address] [place] [id number] 0 05/01 CBC BA % % 0.0 3.0 0.4 FINAL [facility] [place] [facility], [address] [place] [id number] 0 05/01 CBC Danilo # (ANC) K/uL 1.8 7.8 3.3 [facility]AL [facility] [place] [facility], [address] [place] [id number] 0 05/01 CBC LY # K/uL 0.0 4.8 1.3 [facility]AL [facility] [place] [facility], [address] [place] [id number] 0 05/01 CBC MO # K/uL 0.1 0.8 0.4 [facility]AL [facility] [place] [facility], [address] [place] [id number] 0 05/01 CBC EO # K/uL 0.0 1.0 0.1 [facility]AL [facility] [place] [facility], [address] [place] [id number] 0 05/01 CBC BA # K/uL 0.0 1.3 0.0 [facility]AL [facility] [place] [facility], [address] [place] [id number] 0 05/01 CBC IG # K/uL 0.0 0.0 0.0 [facility]AL [facility] [place] [facility], [address] [place] [id number] 0 05/01 CBC IG % % 0.0 0.0 0.2 High FINAL [facility] [place] [facility], [address] [place] [id number] 0 07/31 WBC K/uL 4.0 11.0 5.4 [facility]AL [facility] [place] [facility], [address] [place] [id number] 0 07/31 RBC M/uL 4.2 5.4 4.14 Low [facility]AL [facility] [place] [facility], [address] [place] [id number] 0 07/31 HGB g/dL 12.0 16.0 13.7 FINAL [facility] [place] [facility], [address] [place] [id number] 0 07/31 HCT % 37.0 47.0 40.7 FINAL [facility] [place] [facility], [address] [place] [id number] 0 07/31 MCV fL 79.0 101.0 98.3 FINAL [facility] [place] [facility], [address] [place] [id number] 0 07/31 MCH pg 27.0 31.0 33.1 High FINAL [facility] [place] [facility], [address] [place] [id number] 0 07/31 MCHC g/dL 32.0 37.0 33.7 FINAL [facility] [place] [facility], [address] [place] [id number] 0 07/31 RDW-C V, % % 8.0 15.0 12.7 FINAL [facility] [place] [facility], [address] [place] [id number] 0 07/31 MPV fL 9.4 11.4 8.5 Low FINAL [facility] [place] [facility], [address] [place] [id number] 0 07/31 PLT K/uL 130.0 400.0 196 FINAL [facility] [place] [facility], [address] [place] [id number] 0 07/31 Danilo % % 58.0 71.0 59.9 FINAL [facility] [place] [facility], [address] [place] [id number] 0 07/31 LY % % 20.0 38.0 27.8 FINAL [facility] [place] [facility], [address] [place] [id number] 0 07/31 MO % % 0.0 15.0 9.8 FINAL [facility] [place] [facility], [address] [place] [id number] 0 07/31 EO % % 0.0 6.0 1.9 FINAL [facility] [place] [facility], [address] [place] [id number] 0 07/31 BA % % 0.0 3.0 0.4 FINAL [facility] [place] [facility], [address] [place] [id number] 0 07/31 Danilo # (ANC) K/uL 1.8 7.8 3.2 FINAL [facility] [place] [facility], [address] [place] [id number] 0 07/31 LY # K/uL 0.0 4.8 1.5 FINAL [facility] [place] [facility], [address] [place] [id number] 0 07/31 MO # K/uL 0.1 0.8 0.5 [facility]AL [facility] [place] [facility], [address] [place] [id number] 0 07/31 EO # K/uL 0.0 1.0 0.1 [facility]AL [facility] [place] [facility], [address] [place] [id number] 0 07/31 BA # K/uL 0.0 1.3 0.0 FINAL [facility] [place] [facility], [address] [place] [id number] 0 07/31 IG # K/uL 0.0 0.0 0.0 [facility]AL [facility] [place] [facility], [address] [place] [id number] 0 07/31 IG % % 0.0 0.0 0.2 High FINAL [facility] [place] [facility], [address] [place] [id number] 0 07/31 Sodiu m mmol/L 136.0 145.0 138 [facility] [place] [facility], [address] [place] [id number] 0 07/31 Potas sium mmol/L 3.5 5.1 4.6 [facility] [place] [facility], [address] [place] [id number] 0 07/31 Chlor vee mmol/L 98.0 107.0 104 [facility] [place] [facility], [address] [place] [id number] 0 07/31 Total prote in g/dL 6.4 8.2 7.6 [facility] [place] [facility], [address] [place] [id number] 0 07/31 Album in g/dL 3.4 5.0 4.5 [facility] [place] [facility], [address] [place] [id number] 0 07/31 Calci um mg/dL 8.5 10.1 9.9 [facility]AL [facility] [place] [facility], [address] [place] [id number] 0 07/31 BUN mg/dL 7.0 18.0 16 FINAL [facility] [place] [facility], [address] [place] [id number] 0 07/31 Creat inine mg/dL 0.55 1.02 0.60 [facility] [place] [facility], [address] [place] [id number] 0 07/31 Bilir ubin, total mg/dL 0.2 1.0 0.70 FINAL [facility] [place] [facility], [address] [place] [id number] 0 07/31 AST/S GOT U/L 15.0 37.0 22 [facility] [place] [facility], [address] [place] [id number] 0 07/31 ALT/S GPT U/L 12.0 78.0 14 [facility] [place] [facility], [address] [place] [id number] 0 07/31 Alkal ine phosp hatas e U/L 46.0 116.0 70 [facility] [place] [facility], [address] [place] [id number] 0 07/31 eGFR (2020 ) V 101.67 FINAL [facility] [place] [facility], [address] [place] [id number] 0 Medications Date Name Route Dose Frequency [...] Notes Section * Nurse Note for: 31-JUL-24 [facility] Nurse Note Print Location: Unknown Date/Time Printed: 04/02/2025 00:53 ([facility]) Patient: Erna Melendez Sex: Female : 1960 Date of Service: [...] on 12:32 * Nurse Note for: 01-MAY-24 [facility] Nurse Note Print Location: Unknown Date/Time Printed: 04/02/2025 00:53 ([facility]) Patient: Erna Melendez Sex: Female : 1960 Date of Service: [...] Incident to: [place] Randall MD Denosumab (Prolia) [id number] Immunotherapy Denosumab Subcutaneous (60 mg/mL - Prolia), 60 mg/mL syringe, 60 mg subcutaneously once, Instructions: Administer SQ injection in the upper arm, upper thigh or abdomen., Allow Substitution GIVEN: 60 mg Pharmacy plan: Dose Form Description: 60 mg/mL syringe Dispense/Waste: 60/0 mg Pharmacy dispense: [facility]: [id number] Dispense/Waste: 60/0 mg Given Dose/Discard: 60/0 mg Admin Details: Injection Location: Right-Upper Arm Time: 15:23 Checked By: Rashida Szymanski on 05/01/2024 15:23 * Nurse Note for: 24-JAN-24 [facility] Nurse Note Print Location: Unknown Date/Time Printed: 04/02/2025 00:53 ([facility]) Patient: Erna Melendez Sex: Female : 1960 Date of Service: [...] on 15:06 * Nurse Note for: 29-NOV-23 [facility] Nurse Note Print Location: Unknown Date/Time Printed: 04/02/2025 00:53 ([facility]) Patient: Erna Melendez Sex: Female : 1960 Date of Service: [...]
--- OUTSIDE RECORDS SUMMARY | 2025-04-02 00:53 | XMS_ITS | CCD ---
Author Name Interface, [id number] lity Address [address] [place] [address] [facility] ters Address [address] [place] [address] Care Team Providers Care Equipment Installation Professional Name Role Phone [place] Randall Martha Unavailable Allergies and Adverse Reactions Medication/Group Name Reaction Severity Date No known allergies Care Plan Date Type Value APPOINTMENT DEXA scan APPOINTMENT RTC MD APPOINTMENT RTC MD APPOINTMENT Mammogram, boogie gallego, bilateral breast APPOINTMENT RTC PRINTED CIRCUIT BOARD DESIGNER APPOINTMENT RTC MD APPOINTMENT RTC PRINTED CIRCUIT BOARD DESIGNER 04/25/2029 APPOINTMENT Chemo C12D1 Dylon sumab (Prolia) J8Whwpe 10/25/2028 APPOINTMENT Chemo C11D1 Dylon sumab (Prolia) I9Dxofk 04/26/2028 APPOINTMENT Chemo C10D1 Dylon sumab (Prolia) L5Xnapl 10/27/2027 APPOINTMENT Chemo C9D1 Denos umab (Prolia) Q0Fcwol 04/28/2027 APPOINTMENT Chemo C8D1 Denos umab (Prolia) I4Tkmlm 10/28/2026 APPOINTMENT Chemo C7D1 Denos umab (Prolia) C6Rpxfv 04/29/2026 APPOINTMENT Chemo C6D1 Denos umab (Prolia) V2Vehpa 10/29/2025 APPOINTMENT Chemo C5D1 Denos umab (Prolia) Y3Zddhx 04/30/2025 APPOINTMENT Chemo C4D1 Denos umab (Prolia) X6Isdxa 10/30/2024 APPOINTMENT Chemo C3D1 Denos umab (Prolia) A2Dxway 07/31/2024 APPOINTMENT Follow-Up 07/31/2024 APPOINTMENT Lab 07/31/2024 APPOINTMENT Lab 05/01/2024 APPOINTMENT Follow-Up 05/01/2024 APPOINTMENT Lab 05/01/2024 APPOINTMENT Chemo C2D1 Denos umab (Prolia) E5Sdrjx 05/01/2024 APPOINTMENT Lab 05/01/2024 APPOINTMENT RTC PRINTED CIRCUIT BOARD DESIGNER 04/29/2024 APPOINTMENT Chemo C2D1 Denos umab (Prolia) C8Ophck 04/19/2024 APPOINTMENT Chemo C2D1 Denos umab (Prolia) M5Kxyrj 09/10/2023 LABORDER DEXA scan 04/25/2024 LABORDER Mammogram, scree lashonda, bilateral breast 05/01/2024 LABORDER CBC 05/01/2024 LABORDER CNG PANEL(CMP no Glucose) 07/31/2024 LABORDER CBC 07/31/2024 LABORDER CMP PANEL Reason for Visit Chemo C3D1 Denosumab (Prolia) R2Wkaki Encounters Date Name 07/31/2024 Breast DCIS Diagnostic Results Date Type Test Units Lower Limit Upper Limit Result Flag Comments Status Ordered By Specimen Source Lab Address 04/22 MAMMO 3D SCREE N BILAT Pt: ERNA MELENDEZ MR#: [id number] 2 : 965 Sex: FAcct: [id number] Accessi on: [id number] Locatio n: [facility] WDCExam Date: 024 11:24 Status: FExam: MAMMO 3D SCREEN BILATOr dered by: DENIZ JACOBS Attendi ng: NONSTAF F, PROVIDE R,..#[id number] M24 - MAMMO 3D SCREEN BILAT.B ILATERA L DIGITAL SCREENI NG MAMMOGR AM 3D/2D WITH CAD: 04/22/20 24CLINI ABELARDO: Screeni ng mammogr am, no complai nts..Co mpariso n is made to exams dated: 3 mammogr am, 06/08/20 22mammo gram, and 06/26/20 21 mammogr am - [facility] The tissue of both breasts is [...] ..This report is electro nically signed. Chantale greer M.Maulikmhn /:2023 18:51:3 4.Imagi ng Technol ogist(s ): Adam [facility] Technol ogist, Fiona Boyd [facility] ruth sent: Normal ExamMam mogram BI-RADS : 2 Benign finding Z12.31 FINAL Tahira Jacobs 07/31 Alkal ine phosp hatas e U/L 46.0 116.0 70 FINAL [facility] [place] [facility], [address] [place] [id number] 07/31 Calci um mg/dL 8.5 10.1 9.9 FINAL [facility] [place] [facility], [address] [place] [id number] 0 07/31 ALT/S GPT U/L 12.0 78.0 14 FINAL [facility] [place] [facility], [address] [place] [id number] 0 07/31 Chlor vee mmol/L 98.0 107.0 104 FINAL [facility] [place] [facility], [address] [place] [id number] 0 07/31 Total prote in g/dL 6.4 8.2 7.6 FINAL [facility] [place] [facility], [address] [place] [id number] 0 07/31 eGFR (2020 ) V 101.67 FINAL [facility] [place] [facility], [address] [place] [id number] 0 07/31 BUN mg/dL 7.0 18.0 16 FINAL [facility] [place] [facility], [address] [place] [id number] 0 07/31 Creat inine mg/dL 0.55 1.02 0.60 FINAL [facility] [place] [facility], [address] [place] [id number] 0 07/31 AST/S GOT U/L 15.0 37.0 22 FINAL [facility] [place] [facility], [address] [place] [id number] 0 07/31 Album in g/dL 3.4 5.0 4.5 FINAL [facility] [place] [facility], [address] [place] [id number] 0 07/31 Bilir ubin, total mg/dL 0.2 1.0 0.70 FINAL [facility] [place] [facility], [address] [place] [id number] 0 07/31 Sodiu m mmol/L 136.0 145.0 138 FINAL [facility] [place] [facility], [address] [place] [id number] 0 07/31 Potas sium mmol/L 3.5 5.1 4.6 FINAL [facility] [place] [facility], [address] [place] [id number] 0 07/31 Danilo # (ANC) K/uL 1.8 7.8 3.2 FINAL [facility] [place] [facility], [address] [place] [id number] 0 07/31 MCV fL 79.0 101.0 98.3 FINAL [facility] [place] [facility], [address] [place] [id number] 0 07/31 MO # K/uL 0.1 0.8 0.5 FINAL [facility] [place] [facility], [address] [place] [id number] 0 07/31 IG % % 0.0 0.0 0.2 High FINAL [facility] [place] [facility], [address] [place] [id number] 0 07/31 MO % % 0.0 15.0 9.8 FINAL [facility] [place] [facility], [address] [place] [id number] 0 07/31 IG # K/uL 0.0 0.0 0.0 FINAL [facility] [place] [facility], [address] [place] [id number] 0 07/31 EO # K/uL 0.0 1.0 0.1 FINAL [facility] [place] [facility], [address] [place] [id number] 0 07/31 EO % % 0.0 6.0 1.9 FINAL [facility] [place] [facility], [address] [place] [id number] 0 07/31 RBC M/uL 4.2 5.4 4.14 Low FINAL [facility] [place] [facility], [address] [place] [id number] 0 07/31 MPV fL 9.4 11.4 8.5 Low FINAL [facility] [place] [facility], [address] [place] [id number] 0 07/31 WBC K/uL 4.0 11.0 5.4 FINAL [facility] [place] [facility], [address] [place] [id number] 0 07/31 PLT K/uL 130.0 400.0 196 FINAL [facility] [place] [facility], [address] [place] [id number] 0 07/31 BA % % 0.0 3.0 0.4 FINAL [facility] [place] [facility], [address] [place] [id number] 0 07/31 BA # K/uL 0.0 1.3 0.0 FINAL [facility] [place] [facility], [address] [place] [id number] 0 07/31 HGB g/dL 12.0 16.0 13.7 FINAL [facility] [place] [facility], [address] [place] [id number] 0 07/31 RDW-C V, % % 8.0 15.0 12.7 FINAL [facility] [place] [facility], [address] [place] [id number] 0 07/31 LY % % 20.0 38.0 27.8 FINAL [facility] [place] [facility], [address] [place] [id number] 0 07/31 MCH pg 27.0 31.0 33.1 High FINAL [place] [facility] [place] [facility], [address] [place] [id number] 0 07/31 LY # K/uL 0.0 4.8 1.5 FINAL [facility] [place] [facility], [address] [facility] [place] [id number] 0 07/31 MCHC g/dL 32.0 37.0 33.7 FINAL [place] [facility] [place] [facility], [address] [facility] [place] [id number] 0 07/31 HCT % 37.0 47.0 40.7 FINAL [place] [facility] [place] [facility], [address] [facility] [place] [id number] 0 07/31 Danilo % % 58.0 71.0 59.9 FINAL [facility] [place] [facility], [address] [place] [id number] 0 Medications Administered Date Name Route Dose Frequency Instructions Start Date End Date Status 024 1 ML denosumab 60 MG/ML Prefilled Syringe subcutaneously 60.0 mg once Administer SQ injection in the upper arm, upper thigh or abdomen. 024 2023 inactive Medications Date Name Route Dose Frequency Instructions Start Date End Date Status Cetirizine Oral a ctive Methylprednisolo ne Acetate IM inacti ve Cholecalciferol Oral active Alprazolam Oral i nactive 04/25 1 ML epinephrine 1 MG/ML Injection [...] upper thigh or abdomen. 2028 active 10/25 1 ML epinephrine 1 MG/ML Injection intramuscularly 0.3 mg once Re-initiate treatment only upon physician approval. 2027 active 10/25 diphenhydramine hydrochloride 0.5 MG/ML Injectable Solution intravenously 50.0 mg Re-initiate treatment only upon physician approval. 2027 active 10/25 methylprednisolo ne 2000 MG Injection intravenously 125.0 mg Re-initiate treatment only upon physician approval. 2027 active 10/25 1 ML denosumab 60 MG/ML Prefilled Syringe subcutaneously 60.0 mg once Administer SQ injection in the upper arm, upper thigh or abdomen. 2027 active 10/25 hydrocortisone 100 MG Injection [...] upper thigh or abdomen. 2027 active 04/26 methylprednisolo ne 2000 MG [...] upper thigh or abdomen. 2026 active 04/28 methylprednisolo ne 2000 MG [...] or abdomen. 2025 active 04/29 1 ML epinephrine 1 [...] only upon physician approval. 2025 active 10/29 methylprednisolo ne 2000 MG Injection intravenously 125.0 mg Re-initiate treatment only upon physician approval. 2024 active 10/29 famotidine 10 MG/ML Injectable Solution intravenously 20.0 mg Re-initiate treatment only upon physician approval. 2024 active 10/29 1 ML denosumab 60 MG/ML Prefilled Syringe subcutaneously 60.0 mg once Administer SQ injection in the upper arm, upper thigh or abdomen. 2024 active 10/29 hydrocortisone 100 MG Injection intravenously 100.0 mg Re-initiate treatment only upon physician approval. 2024 active 10/29 diphenhydramine hydrochloride 0.5 MG/ML [...] upper thigh or abdomen. 2024 active 04/30 famotidine 10 MG/ML Injectable Solution intravenously 20.0 mg Re-initiate treatment only upon physician approval. 2024 active 04/30 hydrocortisone 100 MG Injection intravenously 100.0 mg Re-initiate treatment only upon physician approval. 2024 active 04/30 1 ML epinephrine 1 MG/ML Injection intramuscularly 0.3 mg once Re-initiate treatment only upon physician approval. 2024 active 10/30 diphenhydramine hydrochloride 0.5 MG/ML Injectable Solution intravenously 50.0 mg Re-initiate treatment only upon physician approval. 2023 active 10/30 hydrocortisone 100 MG Injection intravenously 100.0 mg Re-initiate treatment only upon physician approval. 2023 active 10/30 1 ML denosumab 60 MG/ML Prefilled Syringe subcutaneously 60.0 mg once Administer SQ injection in the upper arm, upper thigh or abdomen. 2023 active 10/30 1 ML epinephrine 1 [...] treatment only upon physician approval. 2023 active Problems Diagnosis Status Date of Diagnosi s Breast DCIS Active Osteopenia (disorder) Active Intestinal malabsorption (disorder) Active Screening mammography (procedure) Active Procedures Date Category Name Instructions Status 04/25/2024 Physician Order Mammogram, boogie gallego, bilateral breast Community Due 04/2024 Ordered 05/01/2024 Physician Order RTC PRINTED CIRCUIT BOARD DESIGNER RTC PRINTED CIRCUIT BOARD DESIGNER Tahira Jacobs Ordered 07/31/2024 Physician Order RTC PRINTED CIRCUIT BOARD DESIGNER RTC PRINTED CIRCUIT BOARD DESIGNER Tahira Jacobs Ordered Social History Date Name Value Sex Female Vital Signs Date Type Value 07/31/2024 Height 68.00 07/31/2024 Weight 176.00 07/31/2024 Intravascular Systolic 124 07/31/2024 Intravascular Diastolic 78 07/31/2024 Heart Beat 74.00 07/31/2024 Body Temperature 97.60 07/31/2024 Pain Scale 0.00 07/31/2024 Oxygen Saturation 98.00 07/31/2024 BMI 26.76
--- OUTSIDE RECORDS SUMMARY | 2025-04-02 00:53 | XMS_ITS ---
Author Name Interface, [id number] lity Address [address] [place] [address] [facility] ters Address [address] [place] [address] Care Team Providers Care [employer] Lab Technician Name Role Phone [place] Randall Martha Unavailable Allergies and Adverse Reactions Medication/Group Name Reaction Severity Date No known allergies Plan Date Type Value 04/25/2029 APPOINTMENT Chemo C12D1 Dylon sumab (Prolia) W8Msfmf 10/25/2028 APPOINTMENT Chemo C11D1 Dylon sumab (Prolia) Q7Oerkn 04/26/2028 APPOINTMENT Chemo C10D1 Dylon sumab (Prolia) D5Gpytp 10/27/2027 APPOINTMENT Chemo C9D1 Denos umab (Prolia) R3Ooysn 04/28/2027 APPOINTMENT Chemo C8D1 Denos umab (Prolia) E7Oyosu 10/28/2026 APPOINTMENT Chemo C7D1 Denos umab (Prolia) Q2Zelym 04/29/2026 APPOINTMENT Chemo C6D1 Denos umab (Prolia) B8Waiwx 10/29/2025 APPOINTMENT Chemo C5D1 Denos umab (Prolia) D0Jgcph 04/30/2025 APPOINTMENT Chemo C4D1 Denos umab (Prolia) S9Jwdqu 10/30/2024 APPOINTMENT Chemo C3D1 Denos umab (Prolia) Z2Zhlyo 07/31/2024 APPOINTMENT Lab 07/31/2024 APPOINTMENT Follow-Up 07/31/2024 APPOINTMENT Lab 07/31/2024 LABORDER CBC 07/31/2024 LABORDER CMP PANEL Reason for Visit Chemo C3D1 Denosumab (Prolia) B3Lbtag Encounters Date Name 07/31/2024 Breast DCIS Diagnostic Results Date Type Test Units Lower Limit Upper Limit Result Flag Comments Status Ordered By Specimen Source Lab Address 09/20 /2024 WBC K/uL 4.0 11.0 5.4 FINAL [facility] [place] [facility], [address] [place] [id number] 0 07/31 RBC M/uL 4.2 5.4 4.14 Low FINAL [facility] [place] [facility], [address] [place] [id number] 0 07/31 HGB g/dL 12.0 16.0 13.7 FINAL [facility] [place] [facility], [address] [place] [id number] 0 07/31 HCT % 37.0 47.0 40.7 FINAL [facility] [place] [facility], [address] [place] [id number] 0 07/31 MCV fL 79.0 101.0 98.3 FINAL [facility] [place] [facility], [address] [place] [id number] 0 07/31 MCH pg 27.0 31.0 33.1 High FINAL [facility] [place] [facility], [address] [place] [id number] 0 07/31 MCHC g/dL 32.0 37.0 33.7 FINAL [facility] [place] [facility], [address] [place] [id number] 0 07/31 RDW-C V, % % 8.0 15.0 12.7 FINAL [facility] [place] [facility], [address] [place] [id number] 0 07/31 MPV fL 9.4 11.4 8.5 Low FINAL [facility] [place] [facility], [address] [place] [id number] 0 07/31 PLT K/uL 130.0 400.0 196 FINAL [facility] [place] [facility], [address] [place] [id number] 0 07/31 Danilo % % 58.0 71.0 59.9 FINAL [facility] [place] [facility], [address] [place] [id number] 0 07/31 LY % % 20.0 38.0 27.8 FINAL [facility] [place] [facility], [address] [place] [id number] 0 07/31 MO % % 0.0 15.0 9.8 FINAL [facility] [place] [facility], [address] [place] [id number] 0 07/31 EO % % 0.0 6.0 1.9 FINAL [facility] [place] [facility], [address] [place] [id number] 0 07/31 BA % % 0.0 3.0 0.4 FINAL [facility] [place] [facility], [address] [place] [id number] 0 07/31 Danilo # (ANC) K/uL 1.8 7.8 3.2 FINAL [facility] [place] [facility], [address] [place] [id number] 0 07/31 LY # K/uL 0.0 4.8 1.5 FINAL [place] [facility] [place] [facility], [address] [place] [id number] 0 07/31 MO # K/uL 0.1 0.8 0.5 FINAL [facility] [place] [facility], [address] [place] [id number] 0 07/31 EO # K/uL 0.0 1.0 0.1 FINAL [facility] [place] [facility], [address] [place] [id number] 0 07/31 BA # K/uL 0.0 1.3 0.0 FINAL [facility] [place] [facility], [address] [place] [id number] 0 07/31 IG # K/uL 0.0 0.0 0.0 FINAL [facility] [place] [facility], [address] [place] [id number] 0 07/31 IG % % 0.0 0.0 0.2 High FINAL [facility] [place] [facility], [address] [place] [id number] 0 07/31 Sodiu m mmol/L 136.0 145.0 138 FINAL [facility] [place] [facility], [address] [place] [id number] 0 07/31 Potas sium mmol/L 3.5 5.1 4.6 FINAL [facility] [place] [facility], [address] [place] [id number] 0 07/31 Chlor vee mmol/L 98.0 107.0 104 FINAL [facility] [place] [facility], [address] [place] [id number] 0 07/31 Total prote in g/dL 6.4 8.2 7.6 FINAL [facility] [place] [facility], [address] [place] [id number] 0 07/31 Album in g/dL 3.4 5.0 4.5 FINAL [facility] [place] [facility], [address] [place] [id number] 0 07/31 Calci um mg/dL 8.5 10.1 9.9 FINAL [facility] [place] [facility], [address] [place] [id number] 0 07/31 BUN mg/dL 7.0 18.0 16 FINAL [facility] [place] [facility], [address] [place] [id number] 0 07/31 Creat inine mg/dL 0.55 1.02 0.60 FINAL [facility] [place] [facility], [address] [place] [id number] 0 07/31 Bilir ubin, total mg/dL 0.2 1.0 0.70 FINAL [facility] [place] [facility], [address] [place] [id number] 0 07/31 AST/S GOT U/L 15.0 37.0 22 FINAL [facility] [place] [facility], [address] [place] [id number] 0 07/31 ALT/S GPT U/L 12.0 78.0 14 FINAL [facility] [place] [facility], [address] [place] [id number] 0 07/31 Alkal ine phosp hatas e U/L 46.0 116.0 70 FINAL [facility] [place] [facility], [address] [place] [id number] 0 07/31 eGFR (2020 ) V 101.67 FINAL [facility] [place] [facility], [address] [place] [id number] 0 Medications Date Name Route Dose Frequency [...] Notes Section * Nurse Note for: 31-JUL-24 [facility] Nurse Note Print Location: Unknown Date/Time Printed: 04/02/2025 00:53 ([facility]/[place]) Patient: Erna Jackson Sex: Female : 1960 [...]
--- OUTSIDE RECORDS SUMMARY | 2025-04-02 00:53 | XMS_ITS | Data Portability ---
Author Organization [place] [facility] Address [address] [place] [address] Assessment Encounter Date Assessment Date Assessment LastModified by Organization Details LastModified Time 05/06/2023 05/06/2023 Left shoulder impingement. Treatment options were again discussed. Another subacromial injection was performed today uneventfully. Follow-up as needed. [email or web address] Not available 05/06/2023 13:47:45 01/24/2024 01/24/2024 Bilateral patellofemoral joint arthrosis left side worse. However there is likely a meniscal tear right knee. Further workup with an MRI right knee was decided. X-ray films were taken for both knees which reveal arthritis of the knee joint Not available 01/25/2024 17:36:04 02/21/2024 02/21/2024 Soft tissue contusion of the anterior right knee from a fall 3 months ago improving. All questions were answered patient to follow-up as needed Not available 02/21/2024 23:06:18 06/22/2024 06/22/2024 Nelson veins tenosynovitis bilateral wrists. At this time patient diagnosis and treatment options were discussed. Patient wants to try some anti-inflammatory . Other options such as injection versus surgery were discussed but deferred. For the right knee discomfort observation was also decided at this time meloxicam was prescribed Not available 06/23/2024 20:06:21 07/20/2024 07/20/2024 DeQuervain's tenosynovitis bilateral wrists. Injections into both wrists patient tolerated procedure well we will see her back in a month. Instructions given regarding steroid injections Not available 07/20/2024 14:27:36 Plan of Treatment Reminders Order Date Submit Date Provider Last Modified By Organization Details Last Modified Time Details Appointments None recorded. Lab None recorded. Referral None recorded. Procedures None recorded. Surgeries None recorded. Imaging XR, wrist, 3 or more view 2023 024 [facility], [address] [place], [address], 4 20:07:49 XR, wrist, 3 or more view 2023 024 [facility], [address] [place], [address], 4 20:07:49 XR, knee, 3 view 2023 024 [email or web address] [facility], [address] [place] [address], [address], 4 10:54:39 MRI, knee, w/o contrast - right kneepain 2023 024 [facility], [address] [place] [address], [address], 4 10:26:30 XR, knee, 3 view 2023 024 [facility], [address] [place] [address], [address], 4 17:36:54 Medication Orders Kenalog 40 mg/mL suspension for injection 2023 024 [email or web address] 0 Not available 4 13:30:15 Kenalog 40 mg/mL suspension for injection 2023 024 [email or web address] 0 Not available 4 13:30:15 meloxicam 7.5 mg tablet 2023 024 [id number], [address] [place], [address], 4 13:47:46 Depo-Medrol 40 mg/mL suspension for injection 2022 023 [email or web address] 3 Not available 4 12:25:13 Patient TargetsNo targets recorded. Patient InstructionsNo instructions recorded. Reason for Referral None Reported. Results Created Date Observation Date Name Description Value Unit Range Abnormal Flag Note LastModifiedBy Organization Detail LastModifiedTime 01/25/20 24 XR, knee, 3 view No observ ation record ed. [facility] [address], [address], 01/25/2024 17:36:08 01/25/20 24 XR, knee, 3 view No observ ation record ed. [facility] [address], [address], 01/25/2024 17:36:31 02/10/20 24 02/10/2024 MRI, knee, w/o contr ast No observ ation record ed. [email or web address] [facility] [address], [address], 02/10/2024 10:26:30 06/23/20 24 XR, wrist , 3 or more view No observ ation record ed. [facility] [place] [address] [place], [address], 06/23/2024 20:07:19 06/23/20 24 XR, wrist , 3 or more view No observ ation record ed. [facility] [address] [place], [address], 06/23/2024 20:07:32 Result Notes None recorded. Problems Name Problem SNOMED Code Status Onset Date Resolution Date Notes Provider Name and Address Organization Details Recorded Time Disorder of shoulder Active 2015 Impingemen t syndrome of right shoulder; DateStart: 05/08/2016 12:00:00 AM DateEnd : 11/11/2098 12:00:00 AM HasChil d: N Priority : 99 HVSynce d: N GHSynced : N WorkingD iagnosis: N StartEnd Date: 05/08/16 - 11/11/98 Not Available [facility] 23:40:09 Osteoarthr itis of shoulder region 13325155 Active 2018 Primary osteoarthr itis, left shoulder; DateStart: 06/19/2019 12:00:00 AM DateEnd : 11/11/2098 12:00:00 AM HasChil d: N Priority : 99 HVSynce d: N GHSynced : N WorkingD iagnosis: N StartEnd Date: 06/19/19 - 11/11/98 Not Available [facility] 23:40:09 Problem Notes None recorded. Procedures Surgical History Date Name Laterality Status Provider Name and Address Organization Details Recorded Time 07/20/20 24 [place] [address] [place], [place] [address], [address], [place] [facility] 07/20/2024 13:23:30 05/06/20 23 .lsINJECTION completed Jose Mcmillan [facility] [place], [address], [place] [facility] 05/06/2023 13:48:08 07/28/20 21 .lsINJECTION completed Jose Mcmillan [facility] [place], [address], [place] [facility] 07/28/2021 17:33:43 cholecystectomy completed Marla Campos [place] [facility] 07/20/2021 17:19:15 varicose vein operation completed Marla Campos [place] [facility] 07/20/2021 17:19:26 Imaging Results Imaging Date Name Status [facility]Modified by [facility] Details LastModified Time 01/25/2024 XR, knee, 3 view completed [facility] [address], [address], 01/25/2024 17:36:08 01/25/2024 XR, knee, 3 view completed [facility] [address], [address], 01/25/2024 17:36:31 02/10/2024 MRI, knee, w/o contrast completed [email or web address] [address], [address], 02/10/2024 10:26:30 06/23/2024 XR, wrist, 3 or more view completed [facility] [address], [address], 06/23/2024 20:07:19 06/23/2024 XR, wrist, 3 or more view completed [facility] [address], [address], 06/23/2024 20:07:32 Procedure Notes None recorded. Medical Equipment None Reported. Allergies No known drug allergies Medications Name Sig Start Date Stop Date Status Note LastModified by Organization Details LastModified Time anastrozole 1 mg tablet TAKE 1 TABLET BY MOUTH EVERY DAY active Not Available Not Available No t Available Depo-Medrol 40 mg/mL suspension for injection Take 80 mg by injection route. 06/22 completed Not Available Not Available Not Available hydrocodone 5 mg-acetamin ophen 325 mg tablet 02/16 completed Not Available Not Available Not Available meloxicam 15 mg tablet TAKE 1 TABLET BY MOUTH TWICE A DAY active Not Available Not Available No t Available Zyrtec 10 mg tablet 1 tablet every day by oral route. active Not Available Not Available No t Available clopidogrel 75 mg tablet 01/23 completed Not Available Not Available Not Available Kenalog 40 mg/mL suspension for injection Take 40 mg by injection route. 2023 active Not Available Not Available Not Avai lable meloxicam 7.5 mg tablet TAKE 1 TABLET BY MOUTH TWICE A DAY 2023 active Not Available Not Available Not Avai lable alprazolam 0.5 mg tablet 01/23 completed Not Available Not Available Not Available lorazepam 0.5 mg tablet 02/16 completed Not Available Not Available Not Available ondansetron 4 mg disintegrat ing tablet 02/16 completed Not Available Not Available Not Available Vitamin D 2,000 unit capsule 1 capsule every day by oral route. active Not Available Not Available No t Available Vitals Date Recorded Body height Body mass index (BMI) Body weight Provider Name and Address Organization Details Last Updated DateTime 05/06/2023 172.72 cm 28.1 kg/m2 54054.59 g Danuta Garcia [place] [facility] 05/06/2023 12:52:16 Date Recorded Body height Body mass index (BMI) Body weight Provider Name and Address Organization Details Last Updated DateTime 01/24/2024 172.72 cm 27.1 kg/m2 63356.44 g Aviva Rodrigez [place] [facility] 01/24/2024 11:21:37 Date Recorded Body height Body mass index (BMI) Body weight Provider Name and Address Organization Details Last Updated DateTime 06/22/2024 172.72 cm 27.1 kg/m2 68042.44 g Jacob Aparicio [place] [facility] 06/22/2024 12:25:09 Date Recorded Body height Body mass index (BMI) Body weight Provider Name and Address Organization Details Last Updated DateTime 07/20/2024 172.72 cm 27.1 kg/m2 77892.44 g Jacob Aparicio [place] [facility] 07/20/2024 12:40:25 Social History None recorded. Functional Status Question Answer Note LastModified by Organizat ion Details LastModified Time What is your level of alcohol consumption? 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 Family History Relationship Description Onset Age of this Age Resolved Age Notes LastModified by Organization Details LastModified Time Father Family history of malignant neoplasm [email or web address] Not available 2020 17:18:40 Medical History Condition Response Cancer Y Varicosities Y Gynecological HistoryNo gynecological history recorded. Obstetrics History GPAL:G 0 P 0 0 0 0 Past Encounters Encounter ID Performer Location Encounter Start Date Encounter Closed Date Diagnosis/Indication Diagnosis SNOMED-CT Code Diagnosis ICD10 Code Diagnosis Note [id number] Nik Arredondo MD [facility] [place] [place] [address] [place] [address] 07/28/2021 15:29:32 07/28/2021 16:19:52 Impingement syndrome of left shoulder region 8287911468 19044 M75.42 [id number] Nik Arredondo MD [facility] [place] [address] [place] [address] 05/06/2023 12:30:05 05/06/2023 13:11:22 Impingement syndrome of left shoulder region 3091059173 81095 M75.42 [id number] Nik Arredondo MD [facility] [place] [place] [address] [place] [address] 01/24/2024 11:13:16 01/24/2024 12:54:55 Follow-up orthopedic assessment 693423867 Z47.89 Pain of ri ght knee joint 4640556220 58212 M25.561 Osteoarthr itis of left knee joint 7025129051 73621 M17.12 [id number] Nik Arredondo MD [facility] [place] [place] [address] [place] [address] 02/21/2024 16:42:59 02/21/2024 17:54:34 Follow-up orthopedic assessment 541404961 Z47.89 [id number] Nik Arredondo MD [facility] [address], [place] [address] [place] [address] 4 06/22/2024 12:15:30 06/22/2024 14:14:56 Follow-up orthopedic assessment 641782439 Z47.89 Bilateral tenosynovitis of radial styloids 8559138350 1916412 M65.4 Osteoarthr itis of right knee joint 3869577839 95782 M17.11 [id number] Nik Arredondo MD [facility] [address] [place] [address], [place] [address] [place] [address] 4 07/20/2024 12:39:39 07/20/2024 13:34:23 Tenosynovitis of left radial styloid 1322759222 2259730 M65.4 Tenosynovi tis of right radial styloid 6266107949 2593745 M65.4 Health Concerns Section Related Observation LastModified by Organization Detai ls LastModified Time None Recorded Concern Status LastModified by Organization Details LastModified Time None Recorded Advance Directives Directive None Recorded Payers Encounter Date Sequence Insurance Name Policy Number Policy Ortez Covered Member ID Ortez Member ID Guarantor Name 05/06/2023 1 [employer] [id number] Billy Jakcson [id number] Erna [facility] 01/24/2024 1 [employer] [id number] Billy Jackson [id number] Erna Jackson 02/21/2024 1 [employer] [id number] Billy Jackson [id number] Erna Jackson 06/22/2024 1 [place] [id number] Billy Jackson [id number] Erna Jackson 07/20/2024 1 [employer] [id number] Billy Jackson [id number] Erna Jacksno Notes Date Note Type Note Provider Name and Address Organization Details Recorded Time 05/06/2023 text/html Follow-up for le ft shoulder impingement. She had an injection on 07/28/2021 which worked well. She would like to try another injection today. Jose Mcmillan [address] [place], [address], [place] [facility] 05/06/2023 13:48:28 01/24/2024 text/html 63-year-old with pain bilateral knee but then she fell in November 2023 and injuring the right knee pain from which she notes pain patient notes pain turning and pivoting and painful posterior medial Nik Arredondo MD [address] [place], [address], [place] [facility] 01/25/2024 17:37:07 02/21/2024 text/html MRI follow-up right knee which shows soft tissue contusion. Patient feels improved. I reviewed the films with the patient Nik Arredondo MD [address] [place], [address], [place] [facility] 02/21/2024 23:06:46 06/22/2024 text/html Follow-up right knee. Patient still has some mild discomfort and inquires about what the cause. Patient had a fall and a good soft tissue contusion. She also appears to have some mild arthritis which may be responsible for residual symptoms.Today she complains of bilateral wrist pain that came on last 2 weeks. She states that this happened after babysitting her grandkids Nik Arredondo MD [address] [place], [address], [place] [facility] 06/23/2024 20:07:52 07/20/2024 text/html Follow-up DeQuervain's tenosynovitis. Patient request injection bilateral wrist Nik Arredondo MD [address] [place], [address], [place] [facility] 07/20/2024 14:27:49 OBGyn Episode No OBEpisode recorded.
[2025-04-02 09:13] VITALS: BP 137/82; PULSE 85; RESP 16; TEMP 36.1; O2SAT 99; BMI 26.6
[2025-04-02] MEDS: LACTATED RINGERS 1,000 ML 150 ML IV CONT (09:49)
--- NOTE | 2025-04-02 10:03 | WPDANESEPPF ---
Anes - Initial Pre Proc Eval Procedure: Operation Date: 04/02/25 10:30 Proposed Procedures p Screening Colonoscopy - Abe Kline MD Date/Time: 04/02/25 10:03 Surgeon: Abe Kline MD Pre Op Diagnosis: Encounter for screening for malignant neoplasm of Patient Data Age: 64 Gender: F Height: 1.73 m Weight: 79.5 kg Last Vital Signs Temp 36.1 C L 04/02/25 09:13 Pulse 85 04/02/25 09:13 Resp 16 04/02/25 09:13 BP 137/82 04/02/25 09:13 Pulse Ox 99 04/02/25 09:13 O2 Del Method Room Air 04/02/25 09:13 Allergies Allergy/AdvReac Type Severity Reaction Status Date / Time No Known Allergies Allergy Verified 04/02/25 09:11 Home Medications ?Medication ?Instructions ?Recorded ?Confirmed ?Type cetirizine 10 mg capsule (Zyrtec) 10 mg PO DAILY 09/13/23 04/02/25 History cholecalciferol (vitamin D3) 50 50 mcg PO DAILY 09/13/23 04/02/25 History mcg (2,000 unit) tablet anastrozole 1 mg tablet 1 mg PO DAILY 12/13/23 04/02/25 History denosumab 60 mg/mL subcutaneous 60 mg subcut [id number] 01/05/25 03/26/25 History syringe (Prolia) Patient hx anesthesia problems: none Family hx anesthesia problems: none Results Review: All pre-operative results and documents have been reviewed as part of the pre-operative evaluation. [facility] Past Medical History Medical History Venous insufficiency has left iliac venous stent Malignant neoplasm of upper-outer quadrant of left female breast Surgical History Surgical History H/O lumpectomy History of cholecystectomy Family History Family History Father Colon cancer Social History Social History Smoking status: Never smoker Alcohol intake: never Substance use: never Do You Feel Safe in your Home?: Yes Lack of Transportation: No Lack of Food: Never True Current Housing: I Have Housing Concerned About Future Housing: No Difficulty Paying Gas/Electric Bills: No Difficulty Paying for Meds: No Currently Unemployed: No Education: Decline to Answer Difficulty w/ Childcare or Family Care: No Living arrangements: with family Occupation/Education: occupation Gender identity (if verbalized by the patient): Female Spiritual care concerns: No Agree to blood products: Yes Anes - Eval Final PreProcedure Day of Procedure 04/02/25 10:03 Patient weight: overweight Heart: regular rate and rhythm Lungs: clear to auscultation Airway: Mallampati scale class II Neurological: alert and oriented Last oral intake: >/= 8 hours ASA classification: II Emergent: no Anesthetic plan: proceed Anesthesia type and monitoring: general GIVS and standard monitoring Results Review: All pre-operative results and documents have been reviewed as part of the pre-operative evaluation. Informed Consent: The patient's anesthetic plan and its attendant risks and benefits were discussed with the patient/family/POA. Questions were solicited and answers provided to the satisfaction of the patient/family/POA.
--- NOTE | 2025-04-02 10:30 | PM.IMHP ---
H&P: HPI History of Present Illness Date/Time: 04/02/25 10:30 Chief Complaint: Family history colorectal cancer -history of colon polyps Narrative: This patient has family history of colorectal cancer. this patient's father had colon cancer approximately @ 70 years old. He was also found to have colon polyps and is recommended to have colonoscopies every 5 years. Review of Systems Review of Systems: All systems reviewed & are unremarkable except as noted in HPI and below PMFSH Past Medical History Medical History Venous insufficiency has left iliac venous stent Malignant neoplasm of upper-outer quadrant of left female breast Surgical History Surgical History H/O lumpectomy History of cholecystectomy Family History Family History Father Colon cancer Social History Social History Smoking status: Never smoker Alcohol intake: never Substance use: never Do You Feel Safe in your Home?: Yes Lack of Transportation: No Lack of Food: Never True Current Housing: I Have Housing Concerned About Future Housing: No Difficulty Paying Gas/Electric Bills: No Difficulty Paying for Meds: No Currently Unemployed: No Education: Decline to Answer Difficulty w/ Childcare or Family Care: No Living arrangements: with family Occupation/Education: occupation Gender identity (if verbalized by the patient): Female Spiritual care concerns: No Agree to blood products: Yes Meds Home Medications and Allergies Home Medications ?Medication ?Instructions ?Recorded ?Confirmed ?Type cetirizine 10 mg capsule (Zyrtec) 10 mg PO DAILY 09/13/23 04/02/25 History cholecalciferol (vitamin D3) 50 50 mcg PO DAILY 09/13/23 04/02/25 History mcg (2,000 unit) tablet anastrozole 1 mg tablet 1 mg PO DAILY 12/13/23 04/02/25 History denosumab 60 mg/mL subcutaneous 60 mg subcut [id number] 01/05/25 03/26/25 History syringe (Prolia) Allergies Allergy/AdvReac Type Severity Reaction Status Date / Time No Known Allergies Allergy Verified 04/02/25 09:11 Vital Signs Vital Signs - 24 hr 05/23/25 09:13 Temperature 97 F L Pulse Rate 85 Respiratory Rate 16 Blood Pressure 137/82 Pulse Oximetry 99 Oxygen Delivery Room Air Exam Const: General: cooperative and healthy appearing Resp: Effort & Inspection: normal respiratory effort and able to speak in complete sentences Auscultation: clear to auscultation bilaterally Cardio: Rate: regular rate Rhythm: regular rhythm GI: Inspection: normal to inspection GI Palp: No No hepatosplenomegaly present Auscultation: normal bowel sounds Rectal Exam: deferred Skin: General skin exam: normal color Psych: Appearance: grossly normal Mental Status: mental status grossly normal Assessment and Plan Assessment and plan (1) Screening for colon cancer: Code(s): Z12.11 - Encounter for screening for malignant neoplasm of colon Status: Acute Assessment and Plan: The patient is deemed a good candidate for the procedure. Consent signed. Will proceed.
[2025-04-02 10:58] VITALS: BP 102/56; PULSE 88; RESP 20; O2SAT 100
[2025-04-02 11:08] VITALS: BP 101/60; PULSE 86; RESP 18; O2SAT 100
[2025-04-02 11:18] VITALS: BP 123/75; PULSE 84; RESP 18; O2SAT 100
== END 2025-04-02 11:34 | disposition home or self-care (01) ==
PROVIDERS: PCP Nurse Practitioner Family; Referring Provider Nurse Practitioner Family; Visit Provider Internal Medicine Gastroenterology
PROC: 0DJD8ZZ Inspection of Lower Intestinal Tract, Via Natural or Artificial Opening Endoscopic (ICD-10-PCS; CPT 45378; principal; 2025-04-02 10:30)
DX: Z12.11 Encounter for screening for malignant neoplasm of colon (principal); K57.30 Diverticulosis of large intestine without perforation or abscess without bleeding; K64.8 Other hemorrhoids; Z86.0100 Personal history of colon polyps, unspecified; Z80.0 Family history of malignant neoplasm of digestive organs
CPT/HCPCS: 45378; J2704; J7120

== ENCOUNTER 2025-05-11 15:28 | Outpatient (CLI) | payer BC, SELFPAY ==
--- NOTE | ~2025-05-11 | MM_ITS ---
EXAMINATION: MM screening lupe BI w sophia HISTORY: Screening mammogram TECHNIQUE: Craniocaudal and mediolateral oblique 3-D tomosynthesis images were obtained and synthetic 2-D images were generated. CAD analysis was submitted and interpreted. COMPARISON: No prior mammogram is available for comparison at this institution. BREAST PARENCHYMAL COMPOSITION:Not Dense. There are scattered areas of fibroglandular density. FINDINGS: There is postoperative distortion in the upper left breast. No parenchymal abnormality the right breast seen. No suspicious microcalcification either breast. IMPRESSION: No mammographic evidence of malignancy. Recommend routine screening mammography in one year. BI-RADS Category 2: Benign finding(s). Reviewed, dictated and finalized at location .
--- OUTSIDE RECORDS SUMMARY | 2025-05-11 15:33 | XMS_ITS ---
Author Name Interface, [id number] lity Address [address] [place] [address] [facility] Address [address] [place] [address] Allergies and Adverse Reactions Medication/Group Name Reaction Severity Date No known allergies Plan Date Type Value 04/25/2029 APPOINTMENT Chemo C12D1 Dylon sumab (Prolia) W5Lvmyt 10/25/2028 APPOINTMENT Chemo C11D1 Dylon sumab (Prolia) V2Ekvqg 04/26/2028 APPOINTMENT Chemo C10D1 Dylon sumab (Prolia) X9Dyvrn 10/27/2027 APPOINTMENT Chemo C9D1 Denos umab (Prolia) B3Zrfoa 04/28/2027 APPOINTMENT Chemo C8D1 Denos umab (Prolia) H3Zfzog 10/28/2026 APPOINTMENT Chemo C7D1 Denos umab (Prolia) W2Bbjow 04/29/2026 APPOINTMENT Chemo C6D1 Denos umab (Prolia) S6Okbgh 10/29/2025 APPOINTMENT Chemo C5D1 Denos umab (Prolia) R5Zstce 04/30/2025 APPOINTMENT Chemo C4D1 Denos umab (Prolia) E7Kshbs 10/30/2024 APPOINTMENT Chemo C3D1 Denos umab (Prolia) U9Calim 07/31/2024 APPOINTMENT Follow-Up 07/31/2024 APPOINTMENT Lab 07/31/2024 APPOINTMENT Lab 05/01/2024 APPOINTMENT Lab 05/01/2024 APPOINTMENT Chemo C2D1 Denos umab (Prolia) S4Cppnp 05/01/2024 APPOINTMENT RTC STONE GRADER 05/01/2024 APPOINTMENT Lab 05/01/2024 APPOINTMENT Follow-Up 04/29/2024 APPOINTMENT Chemo C2D1 Denos umab (Prolia) E7Dxyvm 04/19/2024 APPOINTMENT Chemo C2D1 Denos umab (Prolia) T7Mscpr 01/24/2024 APPOINTMENT Follow-Up 12/25/2023 APPOINTMENT Anastrozole Oral [...] LABORDER CMP PANEL Reason for Visit Chemo C4D1 Denosumab (Prolia) L0Antdh Encounters Date Name 11/29/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 Screening mammograph y (procedure) Diagnostic Results Date Type Test Units Lower Limit Upper Limit Result Flag Comments Status Ordered By Specimen Source Lab Address 11/29 CBC WBC K/uL 4.0 11.0 4.1 FINAL [facility] [place] [facility], [address] [place] [id number] 0 11/29 CBC RBC M/uL 4.2 5.4 3.91 Low FINAL [facility] [place] [facility], [address] [place] [id number] 0 11/29 CBC HGB g/dL 12.0 16.0 12.7 FINAL [facility] [place] [facility], [address] [place] [id number] 0 11/29 CBC HCT % 37.0 47.0 38.0 FINAL [facility] [place] [facility], [address] [place] [id number] 0 11/29 CBC MCV fL 79.0 101.0 97.2 FINAL [facility] [place] [facility], [address] [place] [id number] 0 11/29 CBC MCH pg 27.0 31.0 32.5 High FINAL [facility] [place] [facility], [address] [place] [id number] 0 11/29 CBC MCHC g/dL 32.0 37.0 33.4 FINAL [facility] [place] [facility], [address] [place] [id number] 0 11/29 CBC RDW-C V, % % 8.0 15.0 13.1 FINAL [facility] [place] [facility], [address] [place] [id number] 0 11/29 CBC MPV fL 9.4 11.4 8.8 Low [facility]AL [facility] [place] [facility], [address] [place] [id number] 0 11/29 CBC PLT K/uL 130.0 400.0 163 FINAL [facility] [place] [facility], [address] [place] [id number] 0 11/29 CBC Danilo % % 58.0 71.0 53.8 Low FINAL [facility] [place] [facility], [address] [place] [id number] 0 11/29 CBC LY % % 20.0 38.0 31.2 FINAL [facility] [place] [facility], [address] [place] [id number] 0 11/29 CBC MO % % 0.0 15.0 11.6 FINAL [facility] [place] [facility], [address] [place] [id number] 0 11/29 CBC EO % % 0.0 6.0 2.9 FINAL [facility] [place] [facility], [address] [place] [id number] 0 11/29 CBC BA % % 0.0 3.0 0.5 [facility]AL [facility] [place] [facility], [address] [place] [id number] 0 11/29 CBC Danilo # (ANC) K/uL 1.8 7.8 2.2 FINAL [facility] [place] [facility], [address] [place] [id number] 0 11/29 CBC LY # K/uL 0.0 4.8 1.3 FINAL [facility] [place] [facility], [address] [place] [id number] 0 11/29 CBC MO # K/uL 0.1 0.8 0.5 FINAL [facility] [place] [facility], [address] [place] [id number] 0 11/29 CBC EO # K/uL 0.0 1.0 0.1 FINAL [facility] [place] [facility], [address] [place] [id number] 0 11/29 CBC BA # K/uL 0.0 1.3 0.0 FINAL [facility] [place] [facility], [address] [place] [id number] 0 11/29 CBC IG # K/uL 0.0 0.0 0.0 FINAL [facility] [place] [facility], [address] [place] [id number] 0 11/29 CBC IG % % 0.0 0.0 0.0 FINAL [facility] [place] [facility], [address] [place] [id number] 0 11/29 Sodiu m mmol/L 136.0 145.0 140 FINAL [facility] [place] [facility], [address] [place] [id number] 0 11/29 Potas sium mmol/L 3.5 5.1 3.7 FINAL [facility] [place] [facility], [address] [place] [id number] 0 11/29 Chlor vee mmol/L 98.0 107.0 107 FINAL [facility] [place] [facility], [address] [place] [id number] 0 11/29 Total prote in g/dL 6.4 8.2 7.8 FINAL [facility] [place] [facility], [address] [place] [id number] 0 11/29 Album in g/dL 3.4 5.0 4.1 FINAL [facility] [place] [facility], [address] [place] [id number] 0 11/29 Calci um mg/dL 8.5 10.1 9.3 FINAL [facility] [place] [facility], [address] [place] [id number] 0 11/29 BUN mg/dL 7.0 18.0 12 FINAL [facility] [place] [facility], [address] [place] [id number] 0 11/29 Creat inine mg/dL 0.55 1.02 0.53 Low FINAL [facility] [place] [facility], [address] [place] [id number] 0 11/29 Bilir ubin, total mg/dL 0.2 1.0 0.40 FINAL [facility] [place] [facility], [address] [place] [id number] 0 11/29 AST/S GOT U/L 15.0 37.0 29 FINAL [facility] [place] [facility], [address] [place] [id number] 0 11/29 ALT/S GPT U/L 12.0 78.0 19 FINAL [facility] [place] [facility], [address] [place] [id number] 0 11/29 Alkal ine phosp hatas e U/L 46.0 116.0 89 FINAL [facility] [place] [facility], [address] [place] [id number] 0 11/29 eGFR (2020 ) V 105.20 FINAL [facility] [place] [facility], [address] [place] [id number] 0 04/22 MAMMO 3D SCREE N BILAT Pt: ERNA MELENDEZ MR#: [id number] 2 : 965 Sex: FAcct: [id number] Accessi on: [id number] Locatio n: [facility] WDCExam Date: 024 11:24 Status: FExam: MAMMO 3D SCREEN BILATOr dered by: DENIZ ALCALA Attendi ng: NONSTAF F, PROVIDE R,..#[id number] M24 - MAMMO 3D SCREEN BILAT.B ILATERA L DIGITAL SCREENI NG MAMMOGR AM 3D/2D WITH CAD: 04/22/20 24CLINI ABELARDO: Screeni ng mammogr am, no complai nts..Co mpariso n is made to exams dated: 3 mammogr am, 06/08/20 22mammo gram, and 06/26/20 21 mammogr am - [facility] The tissue of both breasts is [...] eastexa m, and annual clinica l breast exam. patient will be notifie d of the results ..This report is electro nically signed. Chantale greer M.D.n /:2023 18:51:3 4.Imagi ng Technol ogist(s ): [facility] Technol ogist, [facility] ruth sent: Normal ExamMam mogram BI-RADS : 2 Benign finding Z12.31 FINAL Tahira Alcala 05/01 Sodiu m mmol/L 136.0 145.0 139 FINAL [facility] [place] [facility], [address] [place] [id number] 0 05/01 Potas sium mmol/L 3.5 5.1 3.8 FINAL [facility] [place] [facility], [address] [place] [id number] 0 05/01 Chlor vee mmol/L 98.0 107.0 104 FINAL [facility] [place] [facility], [address] [place] [id number] 0 05/01 Total prote in g/dL 6.4 8.2 7.4 FINAL [facility] [place] [facility], [address] [place] [id number] 0 05/01 Album in g/dL 3.4 5.0 4.5 FINAL [facility] [place] [facility], [address] [place] [id number] 0 05/01 Calci um mg/dL 8.5 10.1 9.5 [facility]AL [facility] [place] [facility], [address] [place] [id number] 0 05/01 BUN mg/dL 7.0 18.0 17 [facility]AL [facility] [place] [facility], [address] [place] [id number] 0 05/01 Creat inine mg/dL 0.55 1.02 0.58 FINAL [facility] [place] [facility], [address] [place] [id number] 0 05/01 Bilir ubin, total mg/dL 0.2 1.0 0.40 FINAL [facility] [place] [facility], [address] [place] [id number] 0 05/01 AST/S GOT U/L 15.0 37.0 27 [facility] [place] [facility], [address] [place] [id number] 0 05/01 ALT/S GPT U/L 12.0 78.0 15 [facility] [place] [facility], [address] [place] [id number] 0 05/01 Alkal ine phosp hatas e U/L 46.0 116.0 75 FINAL [facility] [place] [facility], [address] [place] [id number] 0 05/01 eGFR (2020 ) V 102.67 FINAL [facility] [place] [facility], [address] [place] [id number] 0 05/01 CBC WBC K/uL 4.0 11.0 5.2 FINAL [facility] [place] [facility], [address] [place] [id number] 0 05/01 CBC RBC M/uL 4.2 5.4 3.93 Low FINAL [facility] [place] [facility], [address] [place] [id number] 0 05/01 CBC HGB g/dL 12.0 16.0 13.0 FINAL [facility] [place] [facility], [address] [place] [id number] 0 05/01 CBC HCT % 37.0 47.0 37.9 FINAL [facility] [place] [facility], [address] [place] [id number] 0 05/01 CBC MCV fL 79.0 101.0 96.4 FINAL [facility] [place] [facility], [address] [place] [id number] 0 05/01 CBC MCH pg 27.0 31.0 33.1 High FINAL [facility] [place] [facility], [address] [place] [id number] 0 05/01 CBC MCHC g/dL 32.0 37.0 34.3 FINAL [facility] [place] [facility], [address] [place] [id number] 0 05/01 CBC RDW-C V, % % 8.0 15.0 12.5 FINAL [facility] [place] [facility], [address] [place] [id number] 0 05/01 CBC MPV fL 9.4 11.4 8.3 Low FINAL [facility] [place] [facility], [address] [place] [id number] 0 05/01 CBC PLT K/uL 130.0 400.0 147 FINAL [facility] [place] [facility], [address] [place] [id number] 0 05/01 CBC Danilo % % 58.0 71.0 63.6 FINAL [facility] [place] [facility], [address] [place] [id number] 0 05/01 CBC LY % % 20.0 38.0 25.6 FINAL [facility] [place] [facility], [address] [place] [id number] 0 05/01 CBC MO % % 0.0 15.0 8.1 FINAL [facility] [place] [facility], [address] [place] [id number] 0 05/01 CBC EO % % 0.0 6.0 2.1 FINAL [facility] [place] [facility], [address] [place] [id number] 0 05/01 CBC BA % % 0.0 3.0 0.4 FINAL [facility] [place] [facility], [address] [place] [id number] 0 05/01 CBC Danilo # (ANC) K/uL 1.8 7.8 3.3 FINAL [facility] [place] [facility], [address] [place] [id number] 0 05/01 CBC LY # K/uL 0.0 4.8 1.3 FINAL [facility] [place] [facility], [address] [place] [id number] 0 05/01 CBC MO # K/uL 0.1 0.8 0.4 FINAL [facility] [place] [facility], [address] [place] [id number] 0 05/01 CBC EO # K/uL 0.0 1.0 0.1 FINAL [facility] [place] [facility], [address] [place] [id number] 0 05/01 CBC BA # K/uL 0.0 1.3 0.0 FINAL [facility] [place] [facility], [address] [place] [id number] 0 05/01 CBC IG # K/uL 0.0 0.0 0.0 FINAL [facility] [place] [facility], [address] [place] [id number] 0 05/01 CBC IG % % 0.0 0.0 0.2 High FINAL [facility] [place] [facility], [address] [place] [id number] 0 07/31 WBC K/uL 4.0 11.0 5.4 FINAL [facility] [place] [facility], [address] [place] [id number] 0 07/31 RBC M/uL 4.2 5.4 4.14 Low FINAL [facility] [place] [facility], [address] [place] [id number] 0 07/31 HGB g/dL 12.0 16.0 13.7 FINAL [facility] [place] [facility], [address] [place] [id number] 0 07/31 HCT % 37.0 47.0 40.7 FINAL [facility] [place] [facility], [address] [place] [id number] 0 07/31 MCV fL 79.0 101.0 98.3 FINAL [facility] [place] [facility], [address] [place] [id number] 0 07/31 MCH pg 27.0 31.0 33.1 High FINAL [facility] [place] [facility], [address] [place] [id number] 0 07/31 MCHC g/dL 32.0 37.0 33.7 FINAL [facility] [place] [facility], [address] [place] [id number] 0 07/31 RDW-C V, % % 8.0 15.0 12.7 FINAL [facility] [place] [facility], [address] [place] [id number] 0 07/31 MPV fL 9.4 11.4 8.5 Low FINAL [facility] [place] [facility], [address] [place] [id number] 0 07/31 PLT K/uL 130.0 400.0 196 FINAL [facility] [place] [facility], [address] [place] [id number] 0 07/31 Danilo % % 58.0 71.0 59.9 FINAL [facility] [place] [facility], [address] [place] [id number] 0 07/31 LY % % 20.0 38.0 27.8 FINAL [facility] [place] [facility], [address] [place] [id number] 0 07/31 MO % % 0.0 15.0 9.8 FINAL [facility] [place] [facility], [address] [place] [id number] 0 07/31 EO % % 0.0 6.0 1.9 FINAL [facility] [place] [facility], [address] [place] [id number] 0 07/31 BA % % 0.0 3.0 0.4 FINAL [facility] [place] [facility], [address] [place] [id number] 0 07/31 Danilo # (ANC) K/uL 1.8 7.8 3.2 FINAL [facility] [place] [facility], [address] [place] [id number] 0 07/31 LY # K/uL 0.0 4.8 1.5 FINAL [facility] [place] [facility], [address] [place] [id number] 0 07/31 MO # K/uL 0.1 0.8 0.5 FINAL [facility] [place] [facility], [address] [place] [id number] 0 07/31 EO # K/uL 0.0 1.0 0.1 FINAL [facility] [place] [facility], [address] [place] [id number] 0 07/31 BA # K/uL 0.0 1.3 0.0 FINAL [facility] [place] [facility], [address] [place] [id number] 0 07/31 IG # K/uL 0.0 0.0 0.0 FINAL [facility] [place] [facility], [address] [place] [id number] 0 07/31 IG % % 0.0 0.0 0.2 High FINAL [facility] [place] [facility], [address] [place] [id number] 0 07/31 Sodiu m mmol/L 136.0 145.0 138 FINAL [facility] [place] [facility], [address] [place] [id number] 0 07/31 Potas sium mmol/L 3.5 5.1 4.6 FINAL [facility] [place] [facility], [address] [place] [id number] 0 07/31 Chlor vee mmol/L 98.0 107.0 104 FINAL [facility] [place] [facility], [address] [place] [id number] 0 07/31 Total prote in g/dL 6.4 8.2 7.6 FINAL [facility] [place] [facility], [address] [place] [id number] 0 07/31 Album in g/dL 3.4 5.0 4.5 FINAL [facility] [place] [facility], [address] [place] [id number] 0 07/31 Calci um mg/dL 8.5 10.1 9.9 FINAL [facility] [place] [facility], [address] [place] [id number] 0 07/31 BUN mg/dL 7.0 18.0 16 FINAL [facility] [place] [facility], [address] [place] [id number] 0 07/31 Creat inine mg/dL 0.55 1.02 0.60 FINAL [facility] [place] [facility], [address] [place] [id number] 0 07/31 Bilir ubin, total mg/dL 0.2 1.0 0.70 [facility] [place] [facility], [address] [place] [id number] 0 07/31 AST/S GOT U/L 15.0 37.0 22 [facility] [place] [facility], [address] [place] [id number] 0 07/31 ALT/S GPT U/L 12.0 78.0 14 [facility] [place] [facility], [address] [place] [id number] 0 07/31 Alkal ine phosp hatas e U/L 46.0 116.0 70 FINAL [facility] [place] [facility], [address] [place] [id number] 0 07/31 eGFR (2020 ) V 101.67 [facility] [place] [facility], [address] [place] [id number] 0 Medications Date Name Route Dose Frequency [...] 2022 active Problems Diagnosis Status Date of Diagnosis Resolution Date Breast DCIS Active Osteopenia (disorder) Active Intestinal [...] Notes Section * Nurse Note for: 31-JUL-24 [facility] Nurse Note Print Location: Unknown Date/Time Printed: 05/11/2025 15:33 ([facility]) Patient: Erna Melendez Sex: Female : 1960 [...] on 12:32 * Nurse Note for: 01-MAY-24 [facility] Nurse Note Print Location: Unknown Date/Time Printed: 05/11/2025 15:33 ([facility]) Patient: Erna Melendez Sex: Female : 1960 [...] Incident to: [place] Randall MD Denosumab (Prolia) [id number] Immunotherapy Denosumab Subcutaneous (60 mg/mL - Prolia), 60 mg/mL syringe, 60 mg subcutaneously once, Instructions: Administer SQ injection in the upper arm, upper thigh or abdomen., Allow Substitution GIVEN: 60 mg Pharmacy plan: Dose Form Description: 60 mg/mL syringe Dispense/Waste: 60/0 mg Pharmacy dispense: [facility]: [phone] Dispense/Waste: 60/0 mg Given Dose/Discard: 60/0 mg Admin Details: Injection Location: Right-Upper Arm Time: 15:23 Checked By: Rashida Szymanski on 05/01/2024 15:23 * Nurse Note for: 24-JAN-24 [facility] Nurse Note Print Location: Unknown Date/Time Printed: 05/11/2025 15:33 ([facility]) Patient: Erna Melendez Sex: Female [...] on 15:06 * Nurse Note for: 29-NOV-23 [facility] Nurse Note Print Location: Unknown Date/Time Printed: 05/11/2025 15:33 ([facility]) Patient: Erna Melendez Sex: Female [...]
--- OUTSIDE RECORDS SUMMARY | 2025-05-11 15:33 | XMS_ITS | CCD ---
Author Name Interface, [id number] lity Address [address] [place] [address] [facility] ters Address [address] [place] [address] Care Team Providers Care Driver Salesman Name Role Phone Prakash MORRIS, [place] Portillo Allergies and Adverse Reactions Medication/Group Name Reaction Severity Date No known allergies Care Plan Date Type Value 04/25/2029 APPOINTMENT Chemo C12D1 Dylon sumab (Prolia) B7Gscxt 10/25/2028 APPOINTMENT Chemo C11D1 Dylon sumab (Prolia) D9Kyzyi 04/26/2028 APPOINTMENT Chemo C10D1 Dylon sumab (Prolia) D3Agicc 10/27/2027 APPOINTMENT Chemo C9D1 Denos umab (Prolia) G6Ytiaf 04/28/2027 APPOINTMENT Chemo C8D1 Denos umab (Prolia) S4Ppkxh 10/28/2026 APPOINTMENT Chemo C7D1 Denos umab (Prolia) T9Iyect 04/29/2026 APPOINTMENT Chemo C6D1 Denos umab (Prolia) B6Omfji 10/29/2025 APPOINTMENT Chemo C5D1 Denos umab (Prolia) Y4Fywrz 04/30/2025 APPOINTMENT Chemo C4D1 Denos umab (Prolia) S6Xghwm 10/30/2024 APPOINTMENT Chemo C3D1 Denos umab (Prolia) W3Zxohd 07/31/2024 APPOINTMENT Lab 07/31/2024 APPOINTMENT Follow-Up 07/31/2024 APPOINTMENT Lab 07/31/2024 LABORDER CBC 07/31/2024 LABORDER CMP PANEL Reason for Visit Chemo C4D1 Denosumab (Prolia) [id number] Encounters Date Name 07/31/2024 Breast DCIS Diagnostic Results Date Type Test Units Lower Limit Upper Limit Result Flag Comments Status Ordered By Specimen Source Lab Address 07/31 Alkal ine phosp hatas e U/L 46.0 116.0 70 [facility] [place] [facility], [address] [place] [id number] 0 07/31 Calci um mg/dL 8.5 10.1 9.9 [facility]AL [facility] [place] [facility], [address] [place] [id number] 0 07/31 ALT/S GPT U/L 12.0 78.0 14 [facility] [place] [facility], [address] [place] [id number] 0 07/31 Chlor vee mmol/L 98.0 107.0 104 [facility] [place] [facility], [address] [place] [id number] 0 07/31 Total prote in g/dL 6.4 8.2 7.6 [facility] [place] [facility], [address] [place] [id number] 0 07/31 eGFR (2020 ) V 101.67 FIN[facility] [place] [facility], [address] [place] [id number] 0 07/31 BUN mg/dL 7.0 18.0 16 [facility]AL [facility] [place] [facility], [address] [place] [id number] 0 07/31 Creat inine mg/dL 0.55 1.02 0.60 FINAL [facility] [place] [facility], [address] [place] [id number] 0 07/31 AST/S GOT U/L 15.0 37.0 22 [facility] [place] [facility], [address] [place] [id number] 0 07/31 Album in g/dL 3.4 5.0 4.5 FIN[facility] [place] [facility], [address] [place] [id number] 0 07/31 Bilir ubin, total mg/dL 0.2 1.0 0.70 FINAL [facility] [place] [facility], [address] [place] [id number] 0 07/31 Sodiu m mmol/L 136.0 145.0 138 FINAL [facility] [place] [facility], [address] [place] [id number] 0 07/31 Potas sium mmol/L 3.5 5.1 4.6 FINAL [facility] [place] [facility], [address] [place] [id number] 0 07/31 Danilo # (ANC) K/uL 1.8 7.8 3.2 FINAL [facility] [place] [facility], [address] [place] [id number] 0 07/31 MCV fL 79.0 101.0 98.3 FINAL [facility] [place] [facility], [address] [place] [id number] 0 07/31 MO # K/uL 0.1 0.8 0.5 FINAL [facility] [place] [facility], [address] [place] [id number] 0 07/31 IG % % 0.0 0.0 0.2 High FINAL [facility] [place] [facility], [address] [place] [id number] 0 07/31 MO % % 0.0 15.0 9.8 FINAL [facility] [place] [facility], [address] [place] [id number] 0 07/31 IG # K/uL 0.0 0.0 0.0 FINAL [facility] [place] [facility], [address] [place] [id number] 0 07/31 EO # K/uL 0.0 1.0 0.1 FINAL [facility] [place] [facility], [address] [place] [id number] 0 07/31 EO % % 0.0 6.0 1.9 FINAL [facility] [place] [facility], [address] [place] [id number] 0 07/31 RBC M/uL 4.2 5.4 4.14 Low FINAL [facility] [place] [facility], [address] [place] [id number] 0 07/31 MPV fL 9.4 11.4 8.5 Low FINAL [facility] [place] [facility], [address] [place] [id number] 0 07/31 WBC K/uL 4.0 11.0 5.4 [facility] [place] [facility], [address] [place] [id number] 0 07/31 PLT K/uL 130.0 400.0 196 FINAL [facility] [place] [facility], [address] [place] [id number] 0 07/31 BA % % 0.0 3.0 0.4 FINAL [facility] [place] [facility], [address] [place] [id number] 0 07/31 BA # K/uL 0.0 1.3 0.0 FINAL [facility] [place] [facility], [address] [place] [id number] 0 07/31 HGB g/dL 12.0 16.0 13.7 FINAL [facility] [place] [facility], [address] [place] [id number] 0 07/31 RDW-C V, % % 8.0 15.0 12.7 FINAL [facility] [place] [facility], [address] [place] [id number] 0 07/31 LY % % 20.0 38.0 27.8 FINAL [facility] [place] [facility], [address] [place] [id number] 0 07/31 MCH pg 27.0 31.0 33.1 High FINAL [facility] [place] [facility], [address] [place] [id number] 0 07/31 LY # K/uL 0.0 4.8 1.5 FINAL [facility] [place] [facility], [address] [place] [id number] 0 07/31 MCHC g/dL 32.0 37.0 33.7 FINAL [facility] [place] [facility], [address] [place] [id number] 0 07/31 HCT % 37.0 47.0 40.7 FINAL [facility] [place] [facility], [address] [place] [id number] 0 07/31 Danilo % % 58.0 71.0 59.9 FINAL [facility], [address] [place] [id number] Medications Date Name Route Dose Frequency Instructions Start Date End Date Status Cetirizine Oral a ctive Alprazolam Oral i nactive Methylprednisolo ne Acetate IM inacti ve Cholecalciferol Oral active 04/25 methylprednisolo ne 2000 MG Injection [...] 2023 active Problems Diagnosis Status Date of Diagnosis Resolution Date Breast DCIS Active Osteopenia (disorder) Active Intestinal malabsorption (disorder) Active Screening mammography (procedure) Active Procedures Date Category Name Instructions Status 07/31/2024 Physician Order RTC PUNCH OPERATOR RTC PUNCH OPERATOR Tahira Jacobs Ordered Social History Date Name Value Sex Female Visits Date Type Value 04/25/2029 Chemo C12D1 Denosumab (Prolia) Q 6Month 10/25/2028 Chemo C11D1 Denosumab (Prolia) Q 6Month 04/26/2028 Chemo C10D1 Denosumab (Prolia) Q 6Month 10/27/2027 Chemo C9D1 Denosumab (Prolia) Q6 Month 04/28/2027 Chemo C8D1 Denosumab (Prolia) Q6 Month 10/28/2026 Chemo C7D1 Denosumab (Prolia) Q6 Month 04/29/2026 Chemo C6D1 Denosumab (Prolia) Q6 Month 10/29/2025 Chemo C5D1 Denosumab (Prolia) Q6 Month Vital Signs Date Type Value 07/31/2024 Pain Scale 0.00 07/31/2024 Body Temperature 97.60 07/31/2024 Heart Beat 74.00 07/31/2024 Oxygen Saturation 98.00 07/31/2024 BSA 1.94 07/31/2024 Weight 176.00 07/31/2024 Height 68.00 07/31/2024 BMI 26.76 07/31/2024 Intravascular Systolic 124 07/31/2024 Intravascular Diastolic 78
--- OUTSIDE RECORDS SUMMARY | 2025-05-11 15:33 | XMS_ITS ---
Author Name Interface, [id number] lity Address [address] [place] [address] [facility] ters Address [address] [place] [address] Allergies and Adverse Reactions Medication/Group Name Reaction Severity Date No known allergies Plan Date Type Value 04/25/2029 APPOINTMENT Chemo C12D1 Dylon sumab (Prolia) X2Aciab 10/25/2028 APPOINTMENT Chemo C11D1 Dylon sumab (Prolia) H3Dvcqp 04/26/2028 APPOINTMENT Chemo C10D1 Dylon sumab (Prolia) C2Gbnee 10/27/2027 APPOINTMENT Chemo C9D1 Denos umab (Prolia) K7Hoyri 04/28/2027 APPOINTMENT Chemo C8D1 Denos umab (Prolia) E7Xazpd 10/28/2026 APPOINTMENT Chemo C7D1 Denos umab (Prolia) U1Hxkbc 04/29/2026 APPOINTMENT Chemo C6D1 Denos umab (Prolia) R0Ecitm 10/29/2025 APPOINTMENT Chemo C5D1 Denos umab (Prolia) T9Jaevh 04/30/2025 APPOINTMENT Chemo C4D1 Denos umab (Prolia) U9Auuny 10/30/2024 APPOINTMENT Chemo C3D1 Denos umab (Prolia) G1Rtdyn 07/31/2024 APPOINTMENT Follow-Up 07/31/2024 APPOINTMENT Lab 07/31/2024 APPOINTMENT Lab 07/31/2024 LABORDER CBC 07/31/2024 LABORDER CMP PANEL Reason for Visit Chemo C4D1 Denosumab (Prolia) T1Ikyjk Encounters Date Name 07/31/2024 Breast DCIS Diagnostic Results Date Type Test Units Lower Limit Upper Limit Result Flag Comments Status Ordered By Specimen Source Lab Address 07/31 WBC K/uL 4.0 11.0 5.4 FINAL [facility] [place] [facility], [address] [place] [id number] 0 07/31 RBC M/uL 4.2 5.4 4.14 Low FINAL [facility] [place] [facility], [address] [place] [id number] 0 07/31 HGB g/dL 12.0 16.0 13.7 [facility]AL [facility] [place] [facility], [address] [place] [id number] 0 07/31 HCT % 37.0 47.0 40.7 FINAL [facility] [place] [facility], [address] [place] [id number] 0 07/31 MCV fL 79.0 101.0 98.3 FINAL [facility] [place] [facility], [address] [place] [id number] 0 07/31 MCH pg 27.0 31.0 33.1 High [facility]AL [facility] [place] [facility], [address] [place] [id number] 0 07/31 MCHC g/dL 32.0 37.0 33.7 [facility] [place] [facility], [address] [place] [id number] 0 07/31 RDW-C V, % % 8.0 15.0 12.7 FINAL [facility] [place] [facility], [address] [place] [id number] 0 07/31 MPV fL 9.4 11.4 8.5 Low [facility] [place] [facility], [address] [place] [id number] 0 07/31 PLT K/uL 130.0 400.0 196 [facility] [place] [facility], [address] [place] [id number] 0 07/31 Danilo % % 58.0 71.0 59.9 FINAL [facility] [place] [facility], [address] [place] [id number] 0 07/31 LY % % 20.0 38.0 27.8 FINAL [facility] [place] [facility], [address] [place] [id number] 0 09/20 /2024 MO % % 0.0 15.0 9.8 [facility]AL [facility] [place] [facility], [address] [place] [id number] 0 07/31 EO % % 0.0 6.0 1.9 [facility] [place] [facility], [address] [place] [id number] 0 07/31 BA % % 0.0 3.0 0.4 [facility] [place] [facility], [address] [place] [id number] 0 07/31 Danilo # (ANC) K/uL 1.8 7.8 3.2 [facility]AL [facility] [place] [facility], [address] [place] [id number] 0 07/31 LY # K/uL 0.0 4.8 1.5 [facility]AL [facility] [place] [facility], [address] [place] [id number] 0 07/31 MO # K/uL 0.1 0.8 0.5 [facility]AL [facility] [place] [facility], [address] [place] [id number] 0 07/31 EO # K/uL 0.0 1.0 0.1 [facility] [place] [facility], [address] [place] [id number] 0 07/31 BA # K/uL 0.0 1.3 0.0 [facility]AL [facility] [place] [facility], [address] [place] [id number] 0 07/31 IG # K/uL 0.0 0.0 0.0 [facility]AL [facility] [place] [facility], [address] [place] [id number] 0 07/31 IG % % 0.0 0.0 0.2 High [facility] [place] [facility], [address] [place] [id number] 0 07/31 Sodiu m mmol/L 136.0 145.0 138 [facility] [place] [facility], [address] [place] [id number] 0 07/31 Potas sium mmol/L 3.5 5.1 4.6 [facility] [place] [facility], [address] [place] [id number] 0 07/31 Chlor vee mmol/L 98.0 107.0 104 [facility] [place] [facility], [address] [place] [id number] 0 07/31 Total prote in g/dL 6.4 8.2 7.6 [facility] [place] [facility], [address] [place] [id number] 0 07/31 Album in g/dL 3.4 5.0 4.5 [facility] [place] [facility], [address] [place] [id number] 0 07/31 Calci um mg/dL 8.5 10.1 9.9 [facility] [place] [facility], [address] [place] [address] [place] [address] 0 07/31 BUN mg/dL 7.0 18.0 16 [facility] [place] [facility], [address] [place] [address] [place] [address] 0 07/31 Creat inine mg/dL 0.55 1.02 0.60 [facility] [place] [facility], [address] [place] [address] [place] [address] 0 07/31 Bilir ubin, total mg/dL 0.2 1.0 0.70 [facility] [place] [facility], [address] [place] [address] [place] [address] 0 07/31 AST/S GOT U/L 15.0 37.0 22 [facility] [place] [facility], [address] [place] [address] [place] [address] 0 07/31 ALT/S GPT U/L 12.0 78.0 14 [facility] [place] [facility], [address] [place] [address] [place] [address] 0 07/31 Alkal ine phosp hatas e U/L 46.0 116.0 70 [facility] [place] [facility], [address] [place] [address] [place] [address] 0 07/31 eGFR (2020 ) V 101.67 [facility] [place] [facility], [address] [place] [address] [place] [address] 0 Medications Date Name Route Dose Frequency [...] Notes Section * Nurse Note for: 31-JUL-24 [facility] Nurse Note Print Location: Unknown Date/Time Printed: 05/11/2025 15:33 ([facility]) Patient: Erna Jackson Sex: Female : 1960 [...]
--- OUTSIDE RECORDS SUMMARY | 2025-05-11 15:33 | XMS_ITS | Data Portability ---
Author Organization [place] [facility] Address [address] [place] [address] Assessment Encounter Date Assessment Date Assessment LastModified [...] more view 2023 024 [facility], [facility] [place], [address], 4 20:07:49 XR, wrist, 3 or more view 2023 024 [facility], [address] [place], [address], 4 20:07:49 XR, knee, 3 view 2023 024 [email or web address] [facility] [address], [address], 4 10:54:39 MRI, knee, w/o contrast - right kneepain 2023 024 [facility], [address] [place] [address], [address], 4 10:26:30 XR, knee, 3 view 2023 024 [facility] [address], [address], 4 17:36:54 Medication Orders Kenalog 40 mg/mL suspension for injection 2023 024 [email or web address] 0 Not available 4 13:30:15 Kenalog 40 mg/mL suspension for injection 2023 024 [email or web address] 0 Not available 4 13:30:15 meloxicam 7.5 mg tablet 2023 024 [email or web address] [facility][id number], [address] [place], [address], 13:47:46 Depo-Medrol 40 mg/mL suspension for injection 2022 023 [email or web address] 3 Not available 12:25:13 Patient TargetsNo targets recorded. Patient InstructionsNo instructions recorded. Reason for Referral None Reported. Results Created Date Observation Date Name Description Value Unit Range Abnormal Flag Note LastModifiedBy Organization Detail LastModifiedTime 01/25/20 24 XR, knee, 3 view No observ ation record ed. [facility] [address], [address], 01/25/2024 17:36:08 01/25/20 24 XR, knee, 3 view No observ ation record ed. [facility] [address], [address], 01/25/2024 17:36:31 02/10/20 24 02/10/2024 MRI, knee, w/o contr ast No observ ation record ed. [email or web address] [facility] [address], [address], 02/10/2024 10:26:30 06/23/20 24 XR, wrist , 3 or more view No observ ation record ed. [facility] [place] [address] [place], [address], 06/23/2024 20:07:19 06/23/20 24 XR, wrist , 3 or more view No observ ation record ed. [facility] [address] [place], [address], 06/23/2024 20:07:32 Result Notes None recorded. Problems [...] StartEnd Date: 05/08/16 - 11/11/98 Not Available [facility] 23:40:09 Osteoarthr itis of shoulder region [id number] Active 2018 Primary osteoarthr itis, left shoulder; DateStart: 06/19/2019 12:00:00 AM DateEnd : 11/11/2098 12:00:00 AM HasChil d: N Priority : 99 HVSynce d: N GHSynced : N WorkingD iagnosis: N StartEnd Date: 06/19/19 - 11/11/98 Not Available [facility] 23:40:09 Problem Notes None recorded. Procedures Surgical History Date Name Laterality Status Provider Name and Address Organization Details Recorded Time 07/20/20 24 .khINJECTION completed Nik Arredondo MD [address] [place], [address], [place] [facility] 07/20/2024 13:23:30 05/06/20 23 .lsINJECTION completed Jose Mcmillan [address] [place], [address], [place] [facility] 05/06/2023 13:48:08 07/28/20 21 .lsINJECTION completed Jose Mcmillan [address] [place], [address], [place] [facility] 07/28/2021 17:33:43 cholecystectomy completed Marla Campos [place] [facility] 07/20/2021 17:19:15 varicose vein operation completed Marla Campos [place] [facility] 07/20/2021 17:19:26 Imaging Results None recorded. Procedure Notes None recorded. Medical Equipment None [...] Updated DateTime 01/24/2024 172.72 cm 27.1 kg/m2 02970.44 g Aviva Rodrigez [place] [facility] 01/24/2024 11:21:37 Date Recorded Body height Body mass index (BMI) Body weight Provider Name and Address Organization Details Last Updated DateTime 05/06/2023 172.72 cm 28.1 kg/m2 81901.59 g Danuta Garcia [place] [facility] 05/06/2023 12:52:16 Date Recorded Body height Body mass index (BMI) Body weight Provider Name and Address Organization Details Last Updated DateTime 06/22/2024 172.72 cm 27.1 kg/m2 77901.44 g Jacob Aparicio [place] [facility] 06/22/2024 12:25:09 Date Recorded Body height Body mass index (BMI) Body weight Provider Name and Address Organization Details Last Updated DateTime 07/20/2024 172.72 cm 27.1 kg/m2 15048.44 g Jacob Aparicio [place] [facility] 07/20/2024 12:40:25 Social History None recorded. Functional Status Question Answer Note LastModified by Organizat ion Details LastModified Time What is your level of alcohol consumption? Occasional [email or web address] Information not available 07/20/2021 What is your occupation? [employer] [email or web address] Information n ot available 05/06/2023 Mental Status [...] SNOMED-CT Code Diagnosis ICD10 Code Diagnosis Note [id number] Nik Arredondo MD [facility] [address] [place] [address] 07/28/2021 15:29:32 07/28/2021 16:19:52 Impingement syndrome of left shoulder region 3066866411 19549 M75.42 [id number] Nik Arredondo MD [facility] [address] [place] [address] 05/06/2023 12:30:05 05/06/2023 13:11:22 Impingement syndrome of left shoulder region [id number] 43430 M75.42 [id number] Nik Arredondo MD [facility] [address] [place] [address] 01/24/2024 11:13:16 01/24/2024 12:54:55 Follow-up orthopedic assessment [id number] Z47.89 Pain of ri ght knee joint 1113462773 80933 M25.561 Osteoarthr itis of left knee joint 0406400089 30870 M17.12 [id number] Nik Arredondo MD [facility] [address] [facility] [place] [address] 02/21/2024 16:42:59 02/21/2024 17:54:34 Follow-up orthopedic assessment 081051037 Z47.89 [id number] Nik Arredondo MD [facility] [address] [place] [address] 06/22/2024 12:15:30 06/22/2024 14:14:56 Follow-up orthopedic assessment [id number] Z47.89 Bilateral tenosynovitis of radial styloids 0627748675 7545574 M65.4 Osteoarthr itis of right knee joint 7614625807 98945 M17.11 [id number] Nik Arredondo MD [facility] [address] [place] [address] [place] [address] 07/20/2024 12:39:39 07/20/2024 13:34:23 Tenosynovitis of left radial styloid 9916289283 4970515 M65.4 Tenosynovi tis of right radial styloid 5657345058 7563143 M65.4 Health Concerns Section Related Observation LastModified by Organization Detai ls LastModified Time None Recorded Concern Status LastModified by Organization Details LastModified Time None Recorded Advance Directives Directive None Recorded Payers Insurance Date Sequence Insurance Name Policy Number Policy Ortez Covered Member ID Ortez Member ID Guarantor Name 07/19/2024 1 [employer] [id number] Billy Bowerswler [id number] Erna Jackson Notes Date Note Type Note Provider Name and Address Organization Details Recorded Time 05/06/2023 text/html Follow-up for le ft shoulder impingement. She had an injection on 07/28/2021 which worked well. She would like to try another injection today. Jose Mcmillan [address] [place] [address], [address], [place] [facility] 05/06/2023 13:48:28 01/24/2024 text/html 63-year-old with pain bilateral knee but then she fell in November 2023 and injuring the right knee pain from which she notes pain patient notes pain turning and pivoting and [place] [address] [place] [address], [phone], [place] [facility] 01/25/2024 17:37:07 02/21/2024 text/html MRI follow-up right knee which shows soft tissue contusion. Patient feels improved. I reviewed the films with the patient Nik Arredondo MD [facility] [place], [address], [place] [facility] [...] after babysitting her grandkids Nik Arredondo MD [facility] [place], [address], [place] [facility] 06/23/2024 20:07:52 07/20/2024 text/html Follow-up DeQuervain's tenosynovitis. Patient request injection bilateral wrist Nik Arredondo MD [address] [place] [address], [phone], [place] [facility] 07/20/2024 14:27:49 OBGyn Episode No OBEpisode recorded.
--- OUTSIDE RECORDS SUMMARY | 2025-05-11 15:33 | XMS_ITS ---
Author Name Interface, [id number] lity Address [address] [place] [address] [facility] ters Address [address] [place] [address] Allergies and Adverse Reactions Medication/Group Name Reaction Severity Date No known allergies Plan Date Type Value 04/25/2029 APPOINTMENT Chemo C12D1 Dylon sumab (Prolia) T5Mclav 10/25/2028 APPOINTMENT Chemo C11D1 Dylon sumab (Prolia) L1Gterx 04/26/2028 APPOINTMENT Chemo C10D1 Dylon sumab (Prolia) X3Flrca 10/27/2027 APPOINTMENT Chemo C9D1 Denos umab (Prolia) D6Dvdso 04/28/2027 APPOINTMENT Chemo C8D1 Denos umab (Prolia) X4Iixfo 10/28/2026 APPOINTMENT Chemo C7D1 Denos umab (Prolia) X6Xylgg 04/29/2026 APPOINTMENT Chemo C6D1 Denos umab (Prolia) T5Mnunm 10/29/2025 APPOINTMENT Chemo C5D1 Denos umab (Prolia) S2Xdbih 04/30/2025 APPOINTMENT Chemo C4D1 Denos umab (Prolia) Z9Oxgcy 10/30/2024 APPOINTMENT Chemo C3D1 Denos umab (Prolia) G6Edfmt 07/31/2024 APPOINTMENT Follow-Up 07/31/2024 APPOINTMENT Lab 07/31/2024 APPOINTMENT Lab 05/01/2024 APPOINTMENT Lab 05/01/2024 APPOINTMENT Chemo C2D1 Denos umab (Prolia) L9Vvzdq 05/01/2024 APPOINTMENT RTC OPERATIONS DIRECTOR 05/01/2024 APPOINTMENT Lab 05/01/2024 APPOINTMENT Follow-Up 04/29/2024 APPOINTMENT Chemo C2D1 Denos umab (Prolia) Y9Csvpb 04/19/2024 APPOINTMENT Chemo C2D1 Denos umab (Prolia) D7Xyyqg 01/24/2024 APPOINTMENT Follow-Up 12/25/2023 APPOINTMENT Anastrozole Oral [...] Reason for Visit Chemo C4D1 Denosumab (Prolia) Q7Bxzwd Encounters Date Name 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/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 Screening mammograph y (procedure) Diagnostic Results Date Type Test Units Lower Limit Upper Limit Result Flag Comments Status Ordered By Specimen Source Lab Address 11/29 CBC WBC K/uL 4.0 11.0 4.1 FINAL [facility] [place] [facility], [address] [place] [id number] 0 11/29 CBC RBC M/uL 4.2 5.4 3.91 Low FINAL [facility] [place] [facility], [address] [place] [id number] 0 11/29 CBC HGB g/dL 12.0 16.0 12.7 FINAL [facility] [place] [facility], [address] [place] [id number] 0 11/29 CBC HCT % 37.0 47.0 38.0 FINAL [facility] [place] [facility], [address] [place] [id number] 0 11/29 CBC MCV fL 79.0 101.0 97.2 FINAL [facility] [place] [facility], [address] [place] [id number] 0 11/29 CBC MCH pg 27.0 31.0 32.5 High FINAL [facility] [place] [facility], [address] [place] [id number] 0 11/29 CBC MCHC g/dL 32.0 37.0 33.4 FINAL [facility] [place] [facility], [address] [place] [id number] 0 11/29 CBC RDW-C V, % % 8.0 15.0 13.1 FINAL [facility] [place] [facility], [address] [place] [id number] 0 11/29 CBC MPV fL 9.4 11.4 8.8 Low FINAL [facility] [place] [facility], [address] [place] [id number] 0 11/29 CBC PLT K/uL 130.0 400.0 163 FINAL [facility] [place] [facility], [address] [place] [id number] 0 11/29 CBC Danilo % % 58.0 71.0 53.8 Low FINAL [facility] [place] [facility], [address] [place] [id number] 0 11/29 CBC LY % % 20.0 38.0 31.2 FINAL [facility] [place] [facility], [address] [place] [id number] 0 11/29 CBC MO % % 0.0 15.0 11.6 FINAL [facility] [place] [facility], [address] [place] [id number] 0 11/29 CBC EO % % 0.0 6.0 2.9 FINAL [facility] [place] [facility], [address] [place] [id number] 0 11/29 CBC BA % % 0.0 3.0 0.5 [facility] [place] [facility], [address] [place] [id number] 0 11/29 CBC Danilo # (ANC) K/uL 1.8 7.8 2.2 FINAL [facility] [place] [facility], [address] [place] [id number] 0 11/29 CBC LY # K/uL 0.0 4.8 1.3 FINAL [facility] [place] [facility], [address] [place] [id number] 0 11/29 CBC MO # K/uL 0.1 0.8 0.5 FINAL [facility] [place] [facility], [address] [place] [id number] 0 11/29 CBC EO # K/uL 0.0 1.0 0.1 FINAL [facility] [place] [facility], [address] [place] [id number] 0 11/29 CBC BA # K/uL 0.0 1.3 0.0 [facility]AL [facility] [place] [facility], [address] [place] [id number] 0 11/29 CBC IG # K/uL 0.0 0.0 0.0 [facility]AL [facility] [place] [facility], [address] [place] [id number] 0 11/29 CBC IG % % 0.0 0.0 0.0 [facility]AL [facility] [place] [facility], [address] [place] [id number] 0 11/29 Sodiu m mmol/L 136.0 145.0 140 FINAL [facility] [place] [facility], [address] [place] [id number] 0 11/29 Potas sium mmol/L 3.5 5.1 3.7 FINAL [facility] [place] [facility], [address] [place] [id number] 0 11/29 Chlor vee mmol/L 98.0 107.0 107 FINAL [facility] [place] [facility], [address] [place] [id number] 0 11/29 Total prote in g/dL 6.4 8.2 7.8 FINAL [facility] [place] [facility], [address] [place] [id number] 0 11/29 Album in g/dL 3.4 5.0 4.1 FINAL [facility] [place] [facility], [address] [place] [id number] 0 11/29 Calci um mg/dL 8.5 10.1 9.3 FINAL [facility] [place] [facility], [address] [place] [id number] 0 11/29 BUN mg/dL 7.0 18.0 12 FINAL [facility] [place] [facility], [address] [place] [id number] 0 11/29 Creat inine mg/dL 0.55 1.02 0.53 Low FINAL [facility] [place] [facility], [address] [place] [id number] 0 11/29 Bilir ubin, total mg/dL 0.2 1.0 0.40 FINAL [facility] [place] [facility], [address] [place] [id number] 0 11/29 AST/S GOT U/L 15.0 37.0 29 FINAL [facility] [place] [facility], [address] [place] [id number] 0 11/29 ALT/S GPT U/L 12.0 78.0 19 FINAL [facility] [place] [facility], [address] [place] [id number] 0 11/29 Alkal ine phosp hatas e U/L 46.0 116.0 89 FINAL [facility] [place] [facility], [address] [place] [id number] 0 11/29 eGFR (2020 ) V 105.20 FINAL [facility] [place] [facility], [address] [place] [id number] 0 04/22 MAMMO 3D SCREE N BILAT Pt: ERNA MELENDEZ MR#: [id number] 2 : 965 Sex: FAcct: [id number] Accessi on: [id number] Locatio n: [facility] WDCExam Date: 024 11:24 Status: FExam: MAMMO 3D SCREEN BILATOr dered by: DENIZ ALCALA Attendi ng: NONSTAF F, PROVIDE R,..#[id number] M24 - MAMMO 3D SCREEN BILAT.B ILATERA L DIGITAL SCREENI NG MAMMOGR AM 3D/2D WITH CAD: 04/22/20 24CLINI ABELARDO: Screeni ng mammogr am, no complai nts..Co mpariso n is made to exams dated: 3 mammogr am, 06/08/20 22mammo gram, and 06/26/20 21 mammogr am - [facility] The tissue of both breasts [...] 18:51:3 4.Imagi ng Technol ogist(s ): Adam [facility] Technol ogist, [facility] ruth sent: Normal ExamMam mogram BI-RADS : 2 Benign finding Z12.31 FINAL Tahira Alcala 05/01 Sodiu m mmol/L 136.0 145.0 139 FINAL [facility] [place] [facility], [address] [place] [id number] 0 05/01 Potas sium mmol/L 3.5 5.1 3.8 FINAL [facility] [place] [facility], [address] [place] [id number] 0 05/01 Chlor vee mmol/L 98.0 107.0 104 FINAL [facility] [place] [facility], [address] [place] [id number] 0 05/01 Total prote in g/dL 6.4 8.2 7.4 FINAL [facility] [place] [facility], [address] [place] [id number] 0 05/01 Album in g/dL 3.4 5.0 4.5 FINAL [facility] [place] [facility], [address] [place] [id number] 0 05/01 Calci um mg/dL 8.5 10.1 9.5 [facility]AL [facility] [place] [facility], [address] [place] [id number] 0 05/01 BUN mg/dL 7.0 18.0 17 [facility] [place] [facility], [address] [place] [id number] 0 05/01 Creat inine mg/dL 0.55 1.02 0.58 [facility] [place] [facility], [address] [place] [id number] 0 05/01 Bilir ubin, total mg/dL 0.2 1.0 0.40 [facility] [place] [facility], [address] [place] [id number] 0 05/01 AST/S GOT U/L 15.0 37.0 27 [facility] [place] [facility], [address] [place] [id number] 0 05/01 ALT/S GPT U/L 12.0 78.0 15 [facility] [place] [facility], [address] [place] [id number] 0 05/01 Alkal ine phosp hatas e U/L 46.0 116.0 75 [facility] [place] [facility], [address] [place] [id number] 0 05/01 eGFR (2020 ) V 102.67 [facility] [place] [facility], [address] [place] [id number] 0 05/01 CBC WBC K/uL 4.0 11.0 5.2 FINAL [facility] [place] [facility], [address] [place] [id number] 0 05/01 CBC RBC M/uL 4.2 5.4 3.93 Low FINAL [facility] [place] [facility], [address] [place] [id number] 0 05/01 CBC HGB g/dL 12.0 16.0 13.0 FINAL [facility] [place] [facility], [address] [place] [id number] 0 05/01 CBC HCT % 37.0 47.0 37.9 FINAL [facility] [place] [facility], [address] [place] [id number] 0 05/01 CBC MCV fL 79.0 101.0 96.4 FINAL [facility] [place] [facility], [address] [place] [id number] 0 05/01 CBC MCH pg 27.0 31.0 33.1 High FINAL [facility] [place] [facility], [address] [place] [id number] 0 05/01 CBC MCHC g/dL 32.0 37.0 34.3 FINAL [facility] [place] [facility], [address] [place] [id number] 0 05/01 CBC RDW-C V, % % 8.0 15.0 12.5 FINAL [facility] [place] [facility], [address] [place] [id number] 0 05/01 CBC MPV fL 9.4 11.4 8.3 Low FINAL [facility] [place] [facility], [address] [place] [id number] 0 05/01 CBC PLT K/uL 130.0 400.0 147 FINAL [facility] [place] [facility], [address] [place] [id number] 0 05/01 CBC Danilo % % 58.0 71.0 63.6 FINAL [facility] [place] [facility], [address] [place] [id number] 0 05/01 CBC LY % % 20.0 38.0 25.6 FINAL [facility] [place] [facility], [address] [place] [id number] 0 05/01 CBC MO % % 0.0 15.0 8.1 FINAL [facility] [place] [facility], [address] [place] [id number] 0 05/01 CBC EO % % 0.0 6.0 2.1 FINAL [facility] [place] [facility], [address] [place] [id number] 0 05/01 CBC BA % % 0.0 3.0 0.4 FINAL [facility] [place] [facility], [address] [place] [id number] 0 05/01 CBC Danilo # (ANC) K/uL 1.8 7.8 3.3 FINAL [facility] [place] [facility], [address] [place] [id number] 0 05/01 CBC LY # K/uL 0.0 4.8 1.3 FINAL [facility] [place] [facility], [address] [place] [id number] 0 05/01 CBC MO # K/uL 0.1 0.8 0.4 FINAL [facility] [place] [facility], [address] [place] [id number] 0 05/01 CBC EO # K/uL 0.0 1.0 0.1 FINAL [facility] [place] [facility], [address] [place] [id number] 0 05/01 CBC BA # K/uL 0.0 1.3 0.0 FINAL [facility] [place] [facility], [address] [place] [id number] 0 05/01 CBC IG # K/uL 0.0 0.0 0.0 FINAL [facility] [place] [facility], [address] [place] [id number] 0 05/01 CBC IG % % 0.0 0.0 0.2 High FINAL [facility] [place] [facility], [address] [place] [id number] 0 07/31 WBC K/uL 4.0 11.0 5.4 FINAL [facility] [place] [facility], [address] [place] [id number] 0 07/31 RBC M/uL 4.2 5.4 4.14 Low FINAL [facility] [place] [facility], [address] [place] [id number] 0 07/31 HGB g/dL 12.0 16.0 13.7 FINAL [facility] [place] [facility], [address] [place] [id number] 0 07/31 HCT % 37.0 47.0 40.7 FINAL [facility] [place] [facility], [address] [place] [id number] 0 07/31 MCV fL 79.0 101.0 98.3 FINAL [facility] [place] [facility], [address] [place] [id number] 0 07/31 MCH pg 27.0 31.0 33.1 High FINAL [facility] [place] [facility], [address] [place] [id number] 0 07/31 MCHC g/dL 32.0 37.0 33.7 FINAL [facility] [place] [facility], [address] [place] [id number] 0 07/31 RDW-C V, % % 8.0 15.0 12.7 FINAL [facility] [place] [facility], [address] [place] [id number] 0 07/31 MPV fL 9.4 11.4 8.5 Low FINAL [facility] [place] [facility], [address] [place] [id number] 0 07/31 PLT K/uL 130.0 400.0 196 FINAL [facility] [place] [facility], [address] [place] [id number] 0 07/31 Danilo % % 58.0 71.0 59.9 FINAL [facility] [place] [facility], [address] [place] [id number] 0 07/31 LY % % 20.0 38.0 27.8 FINAL [facility] [place] [facility], [address] [place] [id number] 0 07/31 MO % % 0.0 15.0 9.8 FINAL [facility] [place] [facility], [address] [place] [id number] 0 07/31 EO % % 0.0 6.0 1.9 FINAL [facility] [place] [facility], [address] [place] [id number] 0 07/31 BA % % 0.0 3.0 0.4 FINAL [facility] [place] [facility], [address] [place] [id number] 0 07/31 Danilo # (ANC) K/uL 1.8 7.8 3.2 FINAL [facility] [place] [facility], [address] [place] [id number] 0 07/31 LY # K/uL 0.0 4.8 1.5 FINAL [facility] [place] [facility], [address] [place] [id number] 0 07/31 MO # K/uL 0.1 0.8 0.5 FINAL [facility] [place] [facility], [address] [place] [id number] 0 07/31 EO # K/uL 0.0 1.0 0.1 FINAL [facility] [place] [facility], [address] [place] [id number] 0 07/31 BA # K/uL 0.0 1.3 0.0 FINAL [facility] [place] [facility], [address] [place] [id number] 0 07/31 IG # K/uL 0.0 0.0 0.0 FINAL [facility] [place] [facility], [address] [place] [id number] 0 07/31 IG % % 0.0 0.0 0.2 High FINAL [facility] [place] [facility], [address] [place] [id number] 0 07/31 Sodiu m mmol/L 136.0 145.0 138 FINAL [facility] [place] [facility], [address] [place] [id number] 0 07/31 Potas sium mmol/L 3.5 5.1 4.6 FINAL [facility] [place] [facility], [address] [place] [id number] 0 07/31 Chlor vee mmol/L 98.0 107.0 104 FINAL [facility] [place] [facility], [address] [place] [id number] 0 07/31 Total prote in g/dL 6.4 8.2 7.6 FINAL [facility] [place] [facility], [address] [place] [id number] 0 07/31 Album in g/dL 3.4 5.0 4.5 FINAL [facility] [place] [facility], [address] [place] [id number] 0 07/31 Calci um mg/dL 8.5 10.1 9.9 FINAL [facility] [place] [facility], [address] [place] [id number] 0 07/31 BUN mg/dL 7.0 18.0 16 FINAL [facility] [place] [facility], [address] [place] [id number] 0 07/31 Creat inine mg/dL 0.55 1.02 0.60 FINAL [facility] [place] [facility], [address] [place] [id number] 0 07/31 Bilir ubin, total mg/dL 0.2 1.0 0.70 [facility] [place] [facility], [address] [place] [id number] 0 07/31 AST/S GOT U/L 15.0 37.0 22 [facility] [place] [facility], [address] [place] [id number] 0 07/31 ALT/S GPT U/L 12.0 78.0 14 [facility] [place] [facility], [address] [place] [id number] 0 07/31 Alkal ine phosp hatas e U/L 46.0 116.0 70 FINAL [facility] [place] [facility], [address] [place] [id number] 0 07/31 eGFR (2020 ) V 101.67 FIN[facility] [place] [facility], [address] [place] [id number] 0 Medications Date Name Route Dose Frequency [...] Notes Section * Nurse Note for: 31-JUL-24 [facility] Nurse Note Print Location: Unknown Date/Time Printed: 05/11/2025 15:33 ([facility]) Patient: Erna Melendez Sex: Female : 1960 [...] on 12:32 * Nurse Note for: 01-MAY-24 [facility] Nurse Note Print Location: Unknown Date/Time Printed: 05/11/2025 15:33 ([facility]) Patient: Erna Melendez Sex: Female : 1960 [...] Incident to: [place] Randall MD Denosumab (Prolia) [id number] Immunotherapy Denosumab Subcutaneous (60 mg/mL - Prolia), 60 mg/mL syringe, 60 mg subcutaneously once, Instructions: Administer SQ injection in the upper arm, upper thigh or abdomen., Allow Substitution GIVEN: 60 mg Pharmacy plan: Dose Form Description: 60 mg/mL syringe Dispense/Waste: 60/0 mg Pharmacy dispense: [facility]: [phone] Dispense/Waste: 60/0 mg Given Dose/Discard: 60/0 mg Admin Details: Injection Location: Right-Upper Arm Time: 15:23 Checked By: Rashida Szymanski on 05/01/2024 15:23 * Nurse Note for: 24-JAN-24 [facility] Nurse Note Print Location: Unknown Date/Time Printed: 05/11/2025 15:33 ([facility]) Patient: Erna Melendez Sex: Female : 1960 [...] on 15:06 * Nurse Note for: 29-NOV-23 [facility] Nurse Note Print Location: Unknown Date/Time Printed: 05/11/2025 15:33 ([facility]) Patient: Erna Melendez Sex: Female : 1960 [...]
--- OUTSIDE RECORDS SUMMARY | 2025-05-11 15:33 | XMS_ITS ---
Author Name Interface, [id number] lity Address [address] [place] [address] [facility] ters Address [address] [place] [address] Allergies and Adverse Reactions Medication/Group Name Reaction Severity Date No known allergies Plan Date Type Value 04/25/2029 APPOINTMENT Chemo C12D1 Dylon sumab (Prolia) B4Kkqcw 10/25/2028 APPOINTMENT Chemo C11D1 Dylon sumab (Prolia) M7Riwuk 04/26/2028 APPOINTMENT Chemo C10D1 Dylon sumab (Prolia) U9Yacrt 10/27/2027 APPOINTMENT Chemo C9D1 Denos umab (Prolia) L5Tvlfm 04/28/2027 APPOINTMENT Chemo C8D1 Denos umab (Prolia) K9Tcnne 10/28/2026 APPOINTMENT Chemo C7D1 Denos umab (Prolia) U0Omlnw 04/29/2026 APPOINTMENT Chemo C6D1 Denos umab (Prolia) H6Daoxv 10/29/2025 APPOINTMENT Chemo C5D1 Denos umab (Prolia) P9Tvavv 04/30/2025 APPOINTMENT Chemo C4D1 Denos umab (Prolia) V2Ikbpm 10/30/2024 APPOINTMENT Chemo C3D1 Denos umab (Prolia) X8Ugaer 07/31/2024 APPOINTMENT Follow-Up 07/31/2024 APPOINTMENT Lab 07/31/2024 APPOINTMENT Lab 07/31/2024 LABORDER CBC 07/31/2024 LABORDER CMP PANEL Reason for Visit Chemo C4D1 Denosumab (Prolia) L6Wlbiv Encounters Date Name 07/31/2024 Breast DCIS Diagnostic Results Date Type Test Units Lower Limit Upper Limit Result Flag Comments Status Ordered By Specimen Source Lab Address 07/31 WBC K/uL 4.0 11.0 5.4 FINAL [facility] [place] [facility], [address] [place] [id number] 0 07/31 RBC M/uL 4.2 5.4 4.14 Low FINAL [facility] [place] [facility], [address] [place] [id number] 0 07/31 HGB g/dL 12.0 16.0 13.7 FINAL [facility] [place] [facility], [address] [place] [id number] 0 07/31 HCT % 37.0 47.0 40.7 FINAL [facility] [place] [facility], [address] [place] [id number] 0 07/31 MCV fL 79.0 101.0 98.3 FINAL [facility] [place] [facility], [address] [place] [id number] 0 07/31 MCH pg 27.0 31.0 33.1 High FINAL [facility] [place] [facility], [address] [place] [id number] 0 07/31 MCHC g/dL 32.0 37.0 33.7 FINAL [facility] [place] [facility], [address] [place] [id number] 0 07/31 RDW-C V, % % 8.0 15.0 12.7 FINAL [facility] [place] [facility], [address] [place] [id number] 0 07/31 MPV fL 9.4 11.4 8.5 Low FINAL [facility] [place] [facility], [address] [place] [id number] 0 07/31 PLT K/uL 130.0 400.0 196 FINAL [facility] [place] [facility], [address] [place] [id number] 0 07/31 Danilo % % 58.0 71.0 59.9 FINAL [facility] [place] [facility], [address] [place] [id number] 0 07/31 LY % % 20.0 38.0 27.8 FINAL [facility] [place] [facility], [address] [place] [id number] 0 09/20 /2024 MO % % 0.0 15.0 9.8 FINAL [facility] [place] [facility], [address] [place] [id number] 0 07/31 EO % % 0.0 6.0 1.9 FINAL [facility] [place] [facility], [address] [place] [id number] 0 07/31 BA % % 0.0 3.0 0.4 FINAL [facility] [place] [facility], [address] [place] [id number] 0 07/31 Danilo # (ANC) K/uL 1.8 7.8 3.2 FINAL [facility] [place] [facility], [address] [place] [id number] 0 07/31 LY # K/uL 0.0 4.8 1.5 FINAL [facility] [place] [facility], [address] [place] [id number] 0 07/31 MO # K/uL 0.1 0.8 0.5 FINAL [facility] [place] [facility], [address] [place] [id number] 0 07/31 EO # K/uL 0.0 1.0 0.1 FINAL [facility] [place] [facility], [address] [place] [id number] 0 07/31 BA # K/uL 0.0 1.3 0.0 FINAL [facility] [place] [facility], [address] [place] [id number] 0 07/31 IG # K/uL 0.0 0.0 0.0 FINAL [facility] [place] [facility], [address] [place] [id number] 0 07/31 IG % % 0.0 0.0 0.2 High FINAL [facility] [place] [facility], [address] [place] [id number] 0 07/31 Sodiu m mmol/L 136.0 145.0 138 FINAL [facility] [place] [facility], [address] [place] [id number] 0 07/31 Potas sium mmol/L 3.5 5.1 4.6 FINAL [facility] [place] [facility], [address] [place] [id number] 0 07/31 Chlor vee mmol/L 98.0 107.0 104 [facility] [place] [facility], [address] [place] [id number] 0 07/31 Total prote in g/dL 6.4 8.2 7.6 FIN[facility] [place] [facility], [address] [place] [id number] 0 07/31 Album in g/dL 3.4 5.0 4.5 [facility] [place] [facility], [address] [place] [id number] 0 07/31 Calci um mg/dL 8.5 10.1 9.9 [facility] [place] [facility], [address] [place] [address] [place] [address] 0 07/31 BUN mg/dL 7.0 18.0 16 [facility] [place] [facility], [address] [place] [address] [place] [address] 0 07/31 Creat inine mg/dL 0.55 1.02 0.60 FINAL [facility] [place] [facility], [address] [place] [address] [place] [address] 0 07/31 Bilir ubin, total mg/dL 0.2 1.0 0.70 FINAL [facility] [place] [facility], [address] [place] [address] [place] [address] 0 07/31 AST/S GOT U/L 15.0 37.0 22 [facility]AL [facility], [address] [place] [address] [place] [address] 0 07/31 ALT/S GPT U/L 12.0 78.0 14 [facility]AL [facility], [address] [place] [address] [place] [address] 0 07/31 Alkal ine phosp hatas e U/L 46.0 116.0 70 FINAL [facility], [address] [place] [address] [place] [address] 0 07/31 eGFR (2020 ) V 101.67 [facility], [address] [place] [address] [place] [address] 0 Medications Date Name Route Dose Frequency [...] Notes Section * Nurse Note for: [id number]-[id number] [facility] Nurse Note Print Location: Unknown Date/Time Printed: 05/11/2025 15:33 ([facility] Patient: Erna Jackson Sex: Female : 1960 [...]
--- OUTSIDE RECORDS SUMMARY | 2025-05-11 15:33 | XMS_ITS | CCD ---
Author Name Interface, [id number] lity Address [address] [place] [address] [facility] ter Address [address] [place] [address] Care Team Providers Care Insurance Sales Specialist Name Role Phone Prakash MORRIS, [place] [facility] Allergies and Adverse Reactions Care Plan Reason for Visit Encounters Diagnostic Results Medications Problems Procedures Social History Visits Vital Signs
--- OUTSIDE RECORDS SUMMARY | 2025-05-11 15:33 | XMS_ITS | Patient Health Record ---
Author Organization [facility] Address [address] [place], [place] [id number] Care Team Providers Care Supervisor Fish Bait Processing Name Role Phone Milena French Primary Care Provider Montana Chawla Unavailable [phone] Montana Magana Unavailable Unavailable Reason For Referral No Information Medications Medication SIG (Take, Route, Frequency, Duration) Notes Start Date End Date Status ZyrTEC Allergy 10 MG 1 tablet Orally Onc e a day; Duration: 30 day(s) Active Aspirin Adult Low Dose 81 MG 1 tablet Orally Once a day; Duration: 30 day(s) Active Clopidogrel Bisulfate 75 MG 1 tablet Ora lly Once a day; Duration: 30 day(s) Active Social History Tobacco Use: Social History Observation Description Date Details (start date - stop date) Never Smoker NA - NA Tobacco Use/Smoking Question Answer Notes Are you a nonsmoker Alcohol Screen Question Answer Notes Did you have a drink containing alcohol in the p ast year? 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 confirmed Problem Pain in right foot (0816094770883 07) Pain in right foot (M79.671) Active confirmed Problem Pain in left foot (4262339723181 07) Pain in left foot (M79.672) Active confirmed Plan Of Treatment Pending Test Test Name Order Date X ray : Foot, left 3-4v 08/17/2020 X ray : Foot, right 3-4v 08/17/2020 Night Splint, Left 08/30/2020 Night Splint, Right 09/12/2020 UCB Herve shell inserts bilateral Insurance Providers Payer Name Payer Address Payer Phone Subscriber Number Group Number Insured Name Patient Relationship to Insured Coverage Start Date Coverage End Date [facility] [address] [place], [place] [phone] [id number] Billy Jackson Spouse - patient is the spouse of the insured Medical (General) History Medical History History ICD Code bone/ joint problems vein disease, venous insufficiency Surgical History Surgery Date(Month/Year) gallbladder removed vein laser surgery
== END 2025-05-11 15:29 | disposition home or self-care (01) ==
PROVIDERS: PCP Nurse Practitioner Family; Visit Provider Radiology Radiation Oncology
DX: Z12.31 Encounter for screening mammogram for malignant neoplasm of breast (principal)
CPT/HCPCS: 77063; 77067

== ENCOUNTER 2025-10-19 14:00 | Outpatient (CLI) | payer BC, SELFPAY ==
--- NOTE | ~2025-10-19 | DEXA_ITS ---
Bone Density Report Name: SON MELENDEZ Age: 64 Sex: Female Ethnicity: White Date of : 1960 Indication: postmenopausal; screening for osteoporosis; height loss; cancer; Referring Provider: CATRINA COTO Study: Bone densitometry was performed. Exam Date: October 19, 2025 Accession number: [id number] Bone Density: Region BMD T-score Z-score Classification AP Spine(L1-L4) 0.900 -1.3 0.3 Osteopenia Femoral Neck (Left) 0.624 -2.0 -0.6 Osteopenia Total Hip (Left) 0.778 -1.3 -0.2 Osteopenia Femoral Neck (Right) 0.627 -2.0 -0.6 Osteopenia Total Hip (Right) 0.759 -1.5 -0.4 Osteopenia Total Hip Mean 0.769 -1.4 -0.3 Osteopenia World Health Organization criteria for BMD impression classify patients as: Normal (T-score at or above -1.0), Osteopenia (T-score between -1.0 and -2.5), or Osteoporosis (T-score at or below -2.5). 10-year Fracture Risk(1): Major Osteoporotic Fracture 9.7% Hip Fracture 1.2% Reported Risk Factors: [place] (), Neck BMD=0.624, BMI=29.3 (1) FRAX(R) Version 3.08. Fracture probability calculated for an untreated patient. Fracture probability may be lower if the patient has received treatment. Clinical Information Provided by Patient: Has used the following medications: Reclast (i.e. zoledronate), Prolia (i.e. denosumab) Has the following medical conditions: Cancer Patient maximum height was 68 Menopause Age: 55 No regular weight bearing exercise Drinks caffeinated beverages Onset of menses at age 15 Number of children 2 Impression: The patient has low bone mass, based on the Left Femoral Neck T-score. The patient has an estimated ten-year risk of hip fracture of 1.2% and an estimated ten-year risk of major fracture of 9.7%, based on the WHO FRAX algorithm. Discussion: BONE DENSITY IS LOW AT ONE OR MORE SKELETAL SITES. This patient's lowest T-score is low at one or more skeletal sites. It meets the World Health Organization's (WHO) criteria for ?low bone mass? (T-score between -1.0 and -2.5). The patient's 10-year risk of fracture as calculated by FRAX is less than the threshold where pharmacological therapy is recommended by the National Osteoporosis Foundation (NOF). However, all treatment decisions require clinical judgment and consideration of individual patient factors, including patient preferences, comorbidities, previous drug use, risk factors not captured in the FRAX model (e.g., frailty, falls, vitamin D deficiency, increased bone turnover, interval significant decline in bone density) and possible under or overestimation of fracture risk by FRAX. The patient should follow a healthful lifestyle (good nutrition with adequate calcium and vitamin D, and appropriate weight-bearing exercise). Follow-Up: Consider repeating this study in 2 to 3 years to reassess this patient's status, or sooner if there is some new clinical indication. Reported by: BIBIANA on 10/19/2025 2:43:00 PM. Reviewed, dictated and finalized at location A.
--- OUTSIDE RECORDS SUMMARY | 2025-10-19 16:00 | XMS_ITS | Encounter Summary ---
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 Name Role Phone Unavailable Primary Care Provider Unavailabl e Encounter Details Date Type Department Care Team (Late Contact Info) Description 10/18/2025 Orders Only [facility] Oncology and Hematology [facility] [address] [place] [address] Scott Beck MD [address] [place] [address] [employer] [address] [place] [phone] Ductal carcinoma in situ (DCIS) of left breast Social History Tobacco Use Types Packs/Day Years Used Date Smoking Tobacco: Never Smokeless Tobacco: Never Alcohol Use Standard Drinks/Week Comments Yes 0 (1 standard drink = 0.6 oz pure alcohol) occasionally maybe once a month Comments Unknown Sex and Gender Information Value Date Recorded Sex Assigned at Not on file Legal Sex Female 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
--- OUTSIDE RECORDS SUMMARY | 2025-10-19 16:00 | XMS_ITS | Data Portability ---
Author Organization [facility], Main Office Address [address] [place] [address] Assessment Encounter Date Assessment Date Assessment LastModified by Organization Details LastModified Time 02/10/2025 02/10/2025 64-year-old female presents for evaluation of her right wrist. She has a history of bilateral de Quervain tenosynovitis. She was previously treated in [place] and recently moved to this area. Her risk of and bothering her for about a year. Last July, she was seen by a specialist there and received bilateral cortisone injections into the 1st extensor compartment. The left side completely resolved. The right side was working well up until recently when it began wore off. She has pain with lifting and movement of the wrist. She has tried using a brace without significant improvement. She takes occasional ibuprofen. She is right-hand dominant. Review of systems per patient questionnaire Physical exam: She has tenderness palpation over the 1st extensor compartment. Positive Ale's. 2+ radial pulse. Sensation intact to light touch. X-rays of the wrist were reviewed, demonstrating no acute bony abnormality, preserved joint space She has right-sided de Quervain tenosynovitis. We discussed conservative management and we will prescribe her meloxicam and she should also add a topical Voltaren gel. We also discussed a repeat cortisone injection, that I typically avoid multiple injections but since she had such a good result with the last 1 we can try 1 more. If she were to have another recurrence, we would discuss surgical release. She is in agreement with the plan. Follow up as needed. [email or web address] Not available 02/10/2025 14:32:14 10/13/2025 10/13/2025 64-year-old female presents for re-evaluation of her right wrist. She has a history of bilateral de Quervain tenosynovitis. She has pain with lifting and movement of the wrist. She has tried using a brace without significant improvement. She takes occasional ibuprofen. She is right-hand dominant. She received a cortisone injection back in February which worked well for her until now. She would like to get surgery done for bilateral wrists but would like to wait until the new year. Physical exam: She has tenderness palpation over the 1st extensor compartment. Positive Ale's. 2+ radial pulse. Sensation intact to light touch. She has right-sided de Quervain tenosynovitis. We discussed conservative management. We also discussed a repeat cortisone injection, that we typically avoid multiple injections but since she had such a good result with the last ones we can try one more. We will place for surgical release next year when we see her back. She is in agreement with this plan. [email or web address] Not available 10/13/2025 15:24:09 Plan of Treatment Reminders Order Date Submit Date Provider Last Modified By Organization Details Last Modified Time Details Appointments None recorded. Lab None recorded. Referral None recorded. Procedures injection/a spiration joint/bursa (PROC) 2024 025 [email or web address] In-Office Order, Internal Use Only DO Not Attach Compendium DO Not Attach Compendium, Do Not Delete/merge, [id number] 12:38:43 injection/a spiration joint/bursa (PROC) 2024 025 [email or web address] In-Office Order, Internal Use Only DO Not Attach Compendium DO Not Attach Compendium, Do Not Delete/merge, [id number] 14:33:34 Surgeries None recorded. Imaging XR, wrist, 3 or more view 2024 025 [email or web address] [facility] Harjit Upton, [address], [place], [address], 5 08:21:16 Medication Orders bupivacaine HCl 0.5 % (5 mg/mL) injection solution 2024 025 [email or web address] [id number] [facility], [address] , [place], [address], 5 15:56:03 triamcinolo ne acetonide 40 mg/mL suspension for injection 2024 025 [email or web address] [facility], [address] [place], [address], 5 15:56:03 meloxicam 15 mg tablet 2024 025 [email or web address] [facility], [address] [place], [address], 5 14:33:45 bupivacaine HCl 0.5 % (5 mg/mL) injection solution 2024 025 [email or web address] [facility] [address] In [facility], [address] [place], [address], 5 14:33:45 Kenalog 10 mg/mL suspension for injection 2024 025 [email or web address] [facility] In [facility] [address] [place], [address], 5 14:33:45 Patient TargetsNo targets recorded. Patient InstructionsNo instructions recorded. Reason for Referral None Reported. Results Created Date Observation Date Name Description Value Unit Range Abnormal Flag Note LastModifiedBy Organization Detail LastModifiedTime 02/10/2002/07/2024 MRI, knee, w/o contr ast No observ ation record ed. [email or web address] Not Available 11/2024 14:06:52 02/11/20 XR, wrist , 3 or more view No observ ation record ed. [email or web address] [facility] Harjit Upton [address], [place], [address], 02/10/2025 14:14:22 Result Notes None recorded. Problems Name Problem SNOMED Code Status Onset Date Resolution Date Notes Provider Name and Address Organization Details Recorded Time Pain of right wrist 665669844562738 Active 2024 [facility], [facility] 14:14:24 Problem Notes None recorded. Procedures Surgical History Date Name Laterality Status Provider Name and Address Organization Details Recorded Time Ortho - Cortisone Injection completed Betina Zuniga NP [address] [facility], [place], [address], [facility] 10/13/2025 15:20:59 Ortho - Cortisone Injection completed Izaiah Collado MD [address], [place], [address], [facility] 02/10/2025 14:32:27 Gallbladder Surgery completed [facility] 02/10/2025 14:13:45 Lumpectomy completed [facility] 02/10/2025 14:14:03 Imaging Results None recorded. Procedure Notes None recorded. Medical Equipment None Reported. Medications Name Sig Start Date Stop Date Status Note LastModified by Organization Details LastModified Time anastrozole 1 mg tablet TAKE 1 TABLET BY MOUTH EVERY DAY active Not Available Not Available No t Available benzonatate 200 mg capsule TAKE 1 CAPSULE BY MOUTH THREE TIMES A DAY NEEDED FOR COUGH active Not Available Not Available No t Available meloxicam 15 mg tablet TAKE 1 TABLET BY MOUTH EVERY DAY active Not Available Not Available No t Available bupivacaine HCl 0.5 % (5 mg/mL) injection solution Take 1 mL by injection route. 2024 active Not Available Not Available Not Avai lable Kenalog 10 mg/mL suspension for injection Take 1 mL by injection route. 2024 active [facility]: 0003- [phone]- [phone] Not Available Not Available Not Available triamcinolo ne acetonide 40 mg/mL suspension for injection Take 0.25 mL by injection route. 2024 active Not Available Not Available Not Avai lable amoxicillin 875 mg-potassiu m clavulanate 125 mg tablet TAKE 1 TABLET BY MOUTH EVERY 12 HOURS 02/10 completed Not Available Not Available Not Available Vitals Date Recorded Body height Body mass index (BMI) Body weight Pain severity - 0-10 verbal numeric rating [Score] - Reported Provider Name and Address Organization Details Last Updated DateTime 02/10/2025 172.72 cm 27.1 kg/m2 21487.44 g 6 [facility] 02/10/2025 14:12:32 Date Recorded Body height Body mass index (BMI) Body weight Pain severity - 0-10 verbal numeric rating [Score] - Reported Provider Name and Address Organization Details Last Updated DateTime 10/13/2025 172.72 cm 27.1 kg/m2 64297.44 g 7 [facility] 10/13/2025 11:59:37 Social History Question Answer Notes LastModified by [employer] Details LastModified Time Tobacco Smoking Status Unknown If Ever Smoked [facility] 02/10/2025 14:13:33 What Was The Date Of Your Most Recent Tobacco Screening? 02/10/2025 [email or web address] Information not available 02/10/2025 Sex: Unknown Functional Status Question Answer Note LastModified by [employer] Details LastModified Time What is your level of alcohol consumption? Occasional [email or web address] Information not available 02/10/2025 Mental Status None recorded. Family History Relationship Description Onset Age of this Age Resolved Age Notes LastModified by Organization Details LastModified Time Father History of malignant neoplasm [email or web address] Not available 2024 14:13:08 Medical History No medical history recorded. Gynecological HistoryNo gynecological history recorded. Obstetrics History GPAL:G 0 P 0 0 0 0 Past Encounters Encounter ID Performer Location Encounter Start Date Encounter Closed Date Diagnosis/Indication Diagnosis SNOMED-CT Code Diagnosis ICD10 Code Diagnosis IMO Codes Diagnosis Note [id number] Izaiah Collado MD [facility] [place] [address] [place] [address] 02/10/2025 13:51:22 02/10/2025 14:49:21 Pain of right wrist 8885222365 40029 M25.252 [id number] Izaiah Collado MD [facility] [place] [address] [place] [address] 10/13/2025 11:48:33 10/13/2025 12:42:59 Pain of right wrist 6750450147 01967 M25.531 Health Concerns Section Related Observation LastModified by Organization Detai ls LastModified Time None Recorded Concern Status LastModified by Organization Details LastModified Time None Recorded Advance Directives Directive None Recorded Payers Insurance Date Sequence Insurance Name Policy Number Policy Ortez Covered Member ID Ortez Member ID Guarantor Name 10/13/2025 1 [place] [id number] Billy Jackson [id number] Erna Renetta OBGyn Episode No OBEpisode recorded.
--- OUTSIDE RECORDS SUMMARY | 2025-10-19 16:00 | XMS_ITS ---
Author Name Interface, [id number] lity Address [address] [place] [address] [facility] ters Address [address] [place] [address] Allergies and Adverse Reactions Medication/Group Name Reaction Severity Date No known allergies Plan Date Type Value 04/25/2029 APPOINTMENT Chemo C12D1 Dylon sumab (Prolia) D2Hffcz 10/25/2028 APPOINTMENT Chemo C11D1 Dylon sumab (Prolia) Y0Tduft 04/26/2028 APPOINTMENT Chemo C10D1 Dylon sumab (Prolia) C4Nkisq 10/27/2027 APPOINTMENT Chemo C9D1 Denos umab (Prolia) S8Wrnih 04/28/2027 APPOINTMENT Chemo C8D1 Denos umab (Prolia) Y0Loewy 10/28/2026 APPOINTMENT Chemo C7D1 Denos umab (Prolia) R7Gmwac 04/29/2026 APPOINTMENT Chemo C6D1 Denos umab (Prolia) A3Nlqhj 10/29/2025 APPOINTMENT Chemo C5D1 Denos umab (Prolia) G7Cuzzz 04/30/2025 APPOINTMENT Chemo C4D1 Denos umab (Prolia) J4Iwigi 10/30/2024 APPOINTMENT Chemo C3D1 Denos umab (Prolia) F3Pteqw 07/31/2024 APPOINTMENT Follow-Up 07/31/2024 APPOINTMENT Lab 07/31/2024 APPOINTMENT Lab 05/01/2024 APPOINTMENT Lab 05/01/2024 APPOINTMENT Chemo C2D1 Denos umab (Prolia) F7Oqfkj 05/01/2024 APPOINTMENT RTC DREDGE MATE 05/01/2024 APPOINTMENT Lab 05/01/2024 APPOINTMENT Follow-Up 04/29/2024 APPOINTMENT Chemo C2D1 Denos umab (Prolia) T4Kpzsw 04/19/2024 APPOINTMENT Chemo C2D1 Denos umab (Prolia) B6Phnpw 01/24/2024 APPOINTMENT Follow-Up 12/25/2023 APPOINTMENT Anastrozole Oral 12/25/2023 APPOINTMENT Anastrozole Oral 11/29/2023 APPOINTMENT Anastrozole Oral 11/29/2023 APPOINTMENT Anastrozole Oral 11/29/2023 APPOINTMENT Lab 11/29/2023 APPOINTMENT Lab 11/29/2023 APPOINTMENT Follow-Up 11/29/2023 LAB_ORDER CBC 11/29/2023 LAB_ORDER CNG PANEL(CMP no Glucose) 04/25/2024 LAB_ORDER Mammogram, boogie gallego, bilateral breast 05/01/2024 LAB_ORDER CBC 05/01/2024 LAB_ORDER CNG PANEL(CMP no Glucose) 07/31/2024 LAB_ORDER CBC 07/31/2024 LAB_ORDER CMP PANEL Reason for Visit Chemo C4D1 Denosumab (Prolia) S1Aeear Encounters Date Name 11/29/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 Screening mammograph y (procedure) Diagnostic Results Date Type Test Units Lower Limit Upper Limit Result Flag Comments Status Ordered By Specimen Source Lab Address 11/29 CBC WBC K/uL 4.0 11.0 4.1 FINAL [facility] [place] [facility], [address] [place] [id number] 0 11/29 CBC RBC M/uL 4.2 5.4 3.91 Low FINAL [facility] [place] [facility], [address] [place] [id number] 0 11/29 CBC HGB g/dL 12.0 16.0 12.7 FINAL [facility] [place] [facility], [address] [place] [id number] 0 11/29 CBC HCT % 37.0 47.0 38.0 FINAL [facility] [place] [facility], [address] [place] [id number] 0 11/29 CBC MCV fL 79.0 101.0 97.2 FINAL [facility] [place] [facility], [address] [place] [id number] 0 11/29 CBC MCH pg 27.0 31.0 32.5 High FINAL [facility] [place] [facility], [address] [place] [id number] 0 11/29 CBC MCHC g/dL 32.0 37.0 33.4 FINAL [facility] [place] [facility], [address] [place] [id number] 0 11/29 CBC RDW-C V, % % 8.0 15.0 13.1 FINAL [facility] [place] [facility], [address] [place] [id number] 0 11/29 CBC MPV fL 9.4 11.4 8.8 Low [facility]AL [facility] [place] [facility], [address] [place] [id number] 0 11/29 CBC PLT K/uL 130.0 400.0 163 FINAL [facility] [place] [facility], [address] [place] [id number] 0 11/29 CBC Danilo % % 58.0 71.0 53.8 Low FINAL [facility] [place] [facility], [address] [place] [id number] 0 11/29 CBC LY % % 20.0 38.0 31.2 FINAL [facility] [place] [facility], [address] [place] [id number] 0 11/29 CBC MO % % 0.0 15.0 11.6 FINAL [facility] [place] [facility], [address] [place] [id number] 0 11/29 CBC EO % % 0.0 6.0 2.9 FINAL [facility] [place] [facility], [address] [place] [id number] 0 11/29 CBC BA % % 0.0 3.0 0.5 FINAL [facility] [place] [facility], [address] [place] [id number] 0 11/29 CBC Danilo # (ANC) K/uL 1.8 7.8 2.2 FINAL [facility] [place] [facility], [address] [place] [id number] 0 11/29 CBC LY # K/uL 0.0 4.8 1.3 FINAL [facility] [place] [facility], [address] [place] [id number] 0 11/29 CBC MO # K/uL 0.1 0.8 0.5 FINAL [facility] [place] [facility], [address] [place] [id number] 0 11/29 CBC EO # K/uL 0.0 1.0 0.1 FINAL [facility] [place] [facility], [address] [place] [id number] 0 11/29 CBC BA # K/uL 0.0 1.3 0.0 [facility]AL [facility] [place] [facility], [address] [place] [id number] 0 11/29 CBC IG # K/uL 0.0 0.0 0.0 [facility]AL [facility] [place] [facility], [address] [place] [id number] 0 11/29 CBC IG % % 0.0 0.0 0.0 FINAL [facility] [place] [facility], [address] [place] [id number] 0 11/29 Sodiu m mmol/L 136.0 145.0 140 FINAL [facility] [place] [facility], [address] [place] [id number] 0 11/29 Potas sium mmol/L 3.5 5.1 3.7 FINAL [facility] [place] [facility], [address] [place] [id number] 0 11/29 Chlor vee mmol/L 98.0 107.0 107 FINAL [facility] [place] [facility], [address] [place] [id number] 0 11/29 Total prote in g/dL 6.4 8.2 7.8 FINAL [facility] [place] [facility], [address] [place] [id number] 0 11/29 Album in g/dL 3.4 5.0 4.1 FINAL [facility] [place] [facility], [address] [place] [id number] 0 11/29 Calci um mg/dL 8.5 10.1 9.3 FINAL [facility] [place] [facility], [address] [place] [id number] 0 11/29 BUN mg/dL 7.0 18.0 12 FINAL [facility] [place] [facility], [address] [place] [id number] 0 11/29 Creat inine mg/dL 0.55 1.02 0.53 Low FINAL [facility] [place] [facility], [address] [place] [id number] 0 11/29 Bilir ubin, total mg/dL 0.2 1.0 0.40 FINAL [facility] [place] [facility], [address] [place] [id number] 0 11/29 AST/S GOT U/L 15.0 37.0 29 FINAL [facility] [place] [facility], [address] [place] [id number] 0 11/29 ALT/S GPT U/L 12.0 78.0 19 FINAL [facility] [place] [facility], [address] [place] [id number] 0 11/29 Alkal ine phosp hatas e U/L 46.0 116.0 89 FINAL [facility] [place] [facility], [address] [place] [id number] 0 11/29 eGFR (2020 ) V 105.2% FINAL [facility] [place] [facility], [address] [place] [id number] 0 04/22 MAMMO 3D SCREE N BILAT Pt: ERNA MELENDEZ MR#: [id number] 2 : 89 Sex: FAcct: [id number] Accessi on: [id number] Locatio n: [facility] WDCExam Date: 024 11:24 Status: FExam: MAMMO 3D SCREEN BILATOr dered by: DENIZ ALCALA Attendi ng: NONSTAF F, PROVIDE R,..#[id number] M24 - MAMMO 3D SCREEN BILAT.B ILATERA L DIGITAL SCREENI NG MAMMOGR AM 3D/2D WITH CAD: 04/22/20 24CLINI ABELARDO: Screeni ng mammogr am, no complai nts..Co mpariso n is made to exams dated: 3 mammogr am, 06/08/20 22mammo gram, and 06/26/20 21 mammogr am - [facility] The tissue of both breasts is [...] m, and annual clinica l breast exam. e patient will be notifie d of the results ..This report is electro nically signed. Chantale greer M.D.n /:2023 18:51:3 4.Imagi ng Technol ogist(s ): Adam [facility] Technol ogist, [facility] ruth sent: Normal ExamMam mogram BI-RADS : 2 Benign finding Z12.31 FINAL Tahira Alcala 05/01 Sodiu m mmol/L 136.0 145.0 139 [facility]AL [facility], [address] [place] [id number] 0 05/01 Potas sium mmol/L 3.5 5.1 3.8 FINAL [facility] [place] [facility], [address] [place] [id number] 0 05/01 Chlor vee mmol/L 98.0 107.0 104 FINAL [facility] [place] [facility], [address] [place] [id number] 0 05/01 Total prote in g/dL 6.4 8.2 7.4 FINAL [facility] [place] [facility], [address] [place] [id number] 0 05/01 Album in g/dL 3.4 5.0 4.5 FINAL [facility] [place] [facility], [address] [place] [id number] 0 05/01 Calci um mg/dL 8.5 10.1 9.5 [facility] [place] [facility], [address] [place] [id number] 0 05/01 BUN mg/dL 7.0 18.0 17 [facility] [place] [facility], [address] [place] [id number] 0 05/01 Creat inine mg/dL 0.55 1.02 0.58 [facility] [place] [facility], [address] [place] [id number] 0 05/01 Bilir ubin, total mg/dL 0.2 1.0 0.40 [facility]AL [facility] [place] [facility], [address] [place] [id number] 0 05/01 AST/S GOT U/L 15.0 37.0 27 [facility] [place] [facility], [address] [place] [id number] 0 05/01 ALT/S GPT U/L 12.0 78.0 15 [facility] [place] [facility], [address] [place] [id number] 0 05/01 Alkal ine phosp hatas e U/L 46.0 116.0 75 [facility]AL [facility] [place] [facility], [address] [place] [id number] 0 05/01 eGFR (2020 ) V 102.67% [facility] [place] [facility], [address] [place] [id number] 0 05/01 CBC WBC K/uL 4.0 11.0 5.2 FINAL [facility] [place] [facility], [address] [place] [id number] 0 05/01 CBC RBC M/uL 4.2 5.4 3.93 Low FINAL [facility] [place] [facility], [address] [place] [id number] 0 05/01 CBC HGB g/dL 12.0 16.0 13.0 FINAL [facility] [place] [facility], [address] [place] [id number] 0 05/01 CBC HCT % 37.0 47.0 37.9 FINAL [facility] [place] [facility], [address] [place] [id number] 0 05/01 CBC MCV fL 79.0 101.0 96.4 FINAL [facility] [place] [facility], [address] [place] [id number] 0 05/01 CBC MCH pg 27.0 31.0 33.1 High FINAL [facility] [place] [facility], [address] [place] [id number] 0 05/01 CBC MCHC g/dL 32.0 37.0 34.3 FINAL [facility] [place] [facility], [address] [place] [id number] 0 05/01 CBC RDW-C V, % % 8.0 15.0 12.5 FINAL [facility] [place] [facility], [address] [place] [id number] 0 05/01 CBC MPV fL 9.4 11.4 8.3 Low [facility]AL [facility] [place] [facility], [address] [place] [id number] 0 05/01 CBC PLT K/uL 130.0 400.0 147 [facility]AL [facility] [place] [facility], [address] [place] [id number] 0 05/01 CBC Danilo % % 58.0 71.0 63.6 FINAL [facility] [place] [facility], [address] [place] [id number] 0 05/01 CBC LY % % 20.0 38.0 25.6 FINAL [facility] [place] [facility], [address] [place] [id number] 0 05/01 CBC MO % % 0.0 15.0 8.1 FINAL [facility] [place] [facility], [address] [place] [id number] 0 05/01 CBC EO % % 0.0 6.0 2.1 FINAL [facility] [place] [facility], [address] [place] [id number] 0 05/01 CBC BA % % 0.0 3.0 0.4 FINAL [facility] [place] [facility], [address] [place] [id number] 0 05/01 CBC Danilo # (ANC) K/uL 1.8 7.8 3.3 FINAL [facility] [place] [facility], [address] [place] [id number] 0 05/01 CBC LY # K/uL 0.0 4.8 1.3 FINAL [facility] [place] [facility], [address] [place] [id number] 0 05/01 CBC MO # K/uL 0.1 0.8 0.4 [facility] [place] [facility], [address] [place] [id number] 0 05/01 CBC EO # K/uL 0.0 1.0 0.1 FINAL [facility] [place] [facility], [address] [place] [id number] 0 05/01 CBC BA # K/uL 0.0 1.3 0.0 FINAL [facility] [place] [facility], [address] [place] [id number] 0 05/01 CBC IG # K/uL 0.0 0.0 0.0 FINAL [facility] [place] [facility], [address] [place] [id number] 0 05/01 CBC IG % % 0.0 0.0 0.2 High [facility]AL [facility] [place] [facility], [address] [place] [id number] 0 07/31 WBC K/uL 4.0 11.0 5.4 FINAL [facility] [place] [facility], [address] [place] [id number] 0 07/31 RBC M/uL 4.2 5.4 4.14 Low FINAL [facility] [place] [facility], [address] [place] [id number] 0 07/31 HGB g/dL 12.0 16.0 13.7 FINAL [facility] [place] [facility], [address] [place] [id number] 0 07/31 HCT % 37.0 47.0 40.7 FINAL [facility] [place] [facility], [address] [place] [id number] 0 07/31 MCV fL 79.0 101.0 98.3 FINAL [facility] [place] [facility], [address] [place] [id number] 0 07/31 MCH pg 27.0 31.0 33.1 High FINAL [facility] [place] [facility], [address] [place] [id number] 0 07/31 MCHC g/dL 32.0 37.0 33.7 FINAL [facility] [place] [facility], [address] [place] [id number] 0 07/31 RDW-C V, % % 8.0 15.0 12.7 FINAL [facility] [place] [facility], [address] [place] [id number] 0 07/31 MPV fL 9.4 11.4 8.5 Low FINAL [facility] [place] [facility], [address] [place] [id number] 0 07/31 PLT K/uL 130.0 400.0 196 FINAL [facility] [place] [facility], [address] [place] [id number] 0 07/31 Danilo % % 58.0 71.0 59.9 FINAL [facility] [place] [facility], [address] [place] [id number] 0 07/31 LY % % 20.0 38.0 27.8 FINAL [facility] [place] [facility], [address] [place] [id number] 0 07/31 MO % % 0.0 15.0 9.8 FINAL [facility] [place] [facility], [address] [place] [id number] 0 07/31 EO % % 0.0 6.0 1.9 FINAL [facility] [place] [facility], [address] [place] [id number] 0 07/31 BA % % 0.0 3.0 0.4 FINAL [facility] [place] [facility], [address] [place] [id number] 0 07/31 Danilo # (ANC) K/uL 1.8 7.8 3.2 FINAL [facility] [place] [facility], [address] [place] [id number] 0 07/31 LY # K/uL 0.0 4.8 1.5 FINAL [facility] [place] [facility], [address] [place] [id number] 0 07/31 MO # K/uL 0.1 0.8 0.5 FINAL [facility] [place] [facility], [address] [place] [id number] 0 07/31 EO # K/uL 0.0 1.0 0.1 FINAL [facility] [place] [facility], [address] [place] [id number] 0 07/31 BA # K/uL 0.0 1.3 0.0 FINAL [facility] [place] [facility], [address] [place] [id number] 0 07/31 IG # K/uL 0.0 0.0 0.0 FINAL [facility] [place] [facility], [address] [place] [id number] 0 07/31 IG % % 0.0 0.0 0.2 High FINAL [facility] [place] [facility], [address] [place] [id number] 0 07/31 Sodiu m mmol/L 136.0 145.0 138 FINAL [facility] [place] [facility], [address] [place] [id number] 0 07/31 Potas sium mmol/L 3.5 5.1 4.6 FINAL [facility] [place] [facility], [address] [place] [id number] 0 07/31 Chlor vee mmol/L 98.0 107.0 104 FINAL [facility] [place] [facility], [address] [place] [id number] 0 07/31 Total prote in g/dL 6.4 8.2 7.6 FINAL [facility] [place] [facility], [address] [place] [id number] 0 07/31 Album in g/dL 3.4 5.0 4.5 FINAL [facility] [place] [facility], [address] [place] [id number] 0 07/31 Calci um mg/dL 8.5 10.1 9.9 [facility]AL [facility] [place] [facility], [address] [place] [id number] 0 07/31 BUN mg/dL 7.0 18.0 16 FINAL [facility] [place] [facility], [address] [place] [id number] 0 07/31 Creat inine mg/dL 0.55 1.02 0.60 FINAL [facility] [place] [facility], [address] [place] [id number] 0 07/31 Bilir ubin, total mg/dL 0.2 1.0 0.70 FINAL [facility] [place] [facility], [address] [place] [id number] 0 07/31 AST/S GOT U/L 15.0 37.0 22 FINAL [facility] [place] [facility], [address] [place] [id number] 0 07/31 ALT/S GPT U/L 12.0 78.0 14 FINAL [facility] [place] [facility], [address] [place] [id number] 0 07/31 Alkal ine phosp hatas e U/L 46.0 116.0 70 FINAL [facility] [place] [facility], [address] [place] [id number] 0 07/31 eGFR (2020 ) V 101.67% FINAL [facility] [place] [facility], [address] [place] [id number] 0 Medications Date Name Route Dose Frequency Instructions Start Date End Date Status Fill Status Indication 06/07 Cetiriz ine Oral active 06/07 Choleca lcifero l Oral active 07/31 famotid ine 10 MG/ML Injecta ble Solutio n intrave nously 20.0 mg Re-initiate treatment only upon physician approval. 2028 active Osteopenia (disorder) 07/31 1 ML epineph rine 1 MG/ML Injecti on intramu scularl y 0.3 mg once Re-initiate treatment only upon physician approval. 2028 active Osteopenia (disorder) 07/31 hydroco rtisone 100 MG Injecti on intrave nously 100.0 mg Re-initiate treatment only upon physician approval. 2028 active Osteopenia (disorder) 07/31 diphenh ydramin e hydroch loride 0.5 MG/ML Injecta ble Solutio n intrave nously 50.0 mg Re-initiate treatment only upon physician approval. 2028 active Osteopenia (disorder) 07/31 methylp redniso lone 2000 MG Injecti on intrave nously 125.0 mg Re-initiate treatment only upon physician approval. 2028 active Osteopenia (disorder) 07/31 1 ML denosum ab 60 MG/ML Prefill ed Syringe subcuta neously 60.0 mg once Administer SQ injection in the upper arm, upper thigh or abdomen. 2028 active Intestinal malabsorptio n (disorder) 07/31 1 ML denosum ab 60 MG/ML Prefill ed Syringe subcuta neously 60.0 mg once Administer SQ injection in the upper arm, upper thigh or abdomen. 2028 active Osteopenia (disorder) 07/31 1 ML denosum ab 60 MG/ML Prefill ed Syringe subcuta neously 60.0 mg once Administer SQ injection in the upper arm, upper thigh or abdomen. 2027 active Intestinal malabsorptio n (disorder) 07/31 1 ML epineph rine 1 MG/ML Injecti on intramu scularl y 0.3 mg once Re-initiate treatment only upon physician approval. 2027 active Osteopenia (disorder) 07/31 famotid ine 10 MG/ML Injecta ble Solutio n intrave nously 20.0 mg Re-initiate treatment only upon physician approval. 2027 active Osteopenia (disorder) 07/31 diphenh ydramin e hydroch loride 0.5 MG/ML Injecta ble Solutio n intrave nously 50.0 mg Re-initiate treatment only upon physician approval. 2027 active Osteopenia (disorder) 07/31 1 ML denosum ab 60 MG/ML Prefill ed Syringe subcuta neously 60.0 mg once Administer SQ injection in the upper arm, upper thigh or abdomen. 2027 active Osteopenia (disorder) 07/31 methylp redniso lone 2000 MG Injecti on intrave nously 125.0 mg Re-initiate treatment only upon physician approval. 2027 active Osteopenia (disorder) 07/31 hydroco rtisone 100 MG Injecti on intrave nously 100.0 mg Re-initiate treatment only upon physician approval. 2027 active Osteopenia (disorder) 07/31 hydroco rtisone 100 MG Injecti on intrave nously 100.0 mg Re-initiate treatment only upon physician approval. 2027 active Osteopenia (disorder) 07/31 1 ML epineph rine 1 MG/ML Injecti on intramu scularl y 0.3 mg once Re-initiate treatment only upon physician approval. 2027 active Osteopenia (disorder) 07/31 1 ML denosum ab 60 MG/ML Prefill ed Syringe subcuta neously 60.0 mg once Administer SQ injection in the upper arm, upper thigh or abdomen. 2027 active Intestinal malabsorptio n (disorder) 07/31 diphenh ydramin e hydroch loride 0.5 MG/ML Injecta ble Solutio n intrave nously 50.0 mg Re-initiate treatment only upon physician approval. 2027 active Osteopenia (disorder) 07/31 1 ML denosum ab 60 MG/ML Prefill ed Syringe subcuta neously 60.0 mg once Administer SQ injection in the upper arm, upper thigh or abdomen. 2027 active Osteopenia (disorder) 07/31 famotid ine 10 MG/ML Injecta ble Solutio n intrave nously 20.0 mg Re-initiate treatment only upon physician approval. 2027 active Osteopenia (disorder) 07/31 methylp redniso lone 2000 MG Injecti on intrave nously 125.0 mg Re-initiate treatment only upon physician approval. 2027 active Osteopenia (disorder) 07/31 diphenh ydramin e hydroch loride 0.5 MG/ML Injecta ble Solutio n intrave nously 50.0 mg Re-initiate treatment only upon physician approval. 2026 active Osteopenia (disorder) 07/31 1 ML denosum ab 60 MG/ML Prefill ed Syringe subcuta neously 60.0 mg once Administer SQ injection in the upper arm, upper thigh or abdomen. 2026 active Intestinal malabsorptio n (disorder) 07/31 1 ML denosum ab 60 MG/ML Prefill ed Syringe subcuta neously 60.0 mg once Administer SQ injection in the upper arm, upper thigh or abdomen. 2026 active Osteopenia (disorder) 07/31 famotid ine 10 MG/ML Injecta ble Solutio n intrave nously 20.0 mg Re-initiate treatment only upon physician approval. 2026 active Osteopenia (disorder) 07/31 methylp redniso lone 2000 MG Injecti on intrave nously 125.0 mg Re-initiate treatment only upon physician approval. 2026 active Osteopenia (disorder) 07/31 hydroco rtisone 100 MG Injecti on intrave nously 100.0 mg Re-initiate treatment only upon physician approval. 2026 active Osteopenia (disorder) 07/31 1 ML epineph rine 1 MG/ML Injecti on intramu scularl y 0.3 mg once Re-initiate treatment only upon physician approval. 2026 active Osteopenia (disorder) 07/31 methylp redniso lone 2000 MG Injecti on intrave nously 125.0 mg Re-initiate treatment only upon physician approval. 2026 active Osteopenia (disorder) 07/31 1 ML denosum ab 60 MG/ML Prefill ed Syringe subcuta neously 60.0 mg once Administer SQ injection in the upper arm, upper thigh or abdomen. 2026 active Osteopenia (disorder) 07/31 hydroco rtisone 100 MG Injecti on intrave nously 100.0 mg Re-initiate treatment only upon physician approval. 2026 active Osteopenia (disorder) 07/31 diphenh ydramin e hydroch loride 0.5 MG/ML Injecta ble Solutio n intrave nously 50.0 mg Re-initiate treatment only upon physician approval. 2026 active Osteopenia (disorder) 07/31 1 ML denosum ab 60 MG/ML Prefill ed Syringe subcuta neously 60.0 mg once Administer SQ injection in the upper arm, upper thigh or abdomen. 2026 active Intestinal malabsorptio n (disorder) 07/31 famotid ine 10 MG/ML Injecta ble Solutio n intrave nously 20.0 mg Re-initiate treatment only upon physician approval. 2026 active Osteopenia (disorder) 07/31 1 ML epineph rine 1 MG/ML Injecti on intramu scularl y 0.3 mg once Re-initiate treatment only upon physician approval. 2026 active Osteopenia (disorder) 07/31 methylp redniso lone 2000 MG Injecti on intrave nously 125.0 mg Re-initiate treatment only upon physician approval. 2025 active Osteopenia (disorder) 07/31 1 ML epineph rine 1 MG/ML Injecti on intramu scularl y 0.3 mg once Re-initiate treatment only upon physician approval. 2025 active Osteopenia (disorder) 07/31 hydroco rtisone 100 MG Injecti on intrave nously 100.0 mg Re-initiate treatment only upon physician approval. 2025 active Osteopenia (disorder) 07/31 diphenh ydramin e hydroch loride 0.5 MG/ML Injecta ble Solutio n intrave nously 50.0 mg Re-initiate treatment only upon physician approval. 2025 active Osteopenia (disorder) 07/31 1 ML denosum ab 60 MG/ML Prefill ed Syringe subcuta neously 60.0 mg once Administer SQ injection in the upper arm, upper thigh or abdomen. 2025 active Intestinal malabsorptio n (disorder) 07/31 1 ML denosum ab 60 MG/ML Prefill ed Syringe subcuta neously 60.0 mg once Administer SQ injection in the upper arm, upper thigh or abdomen. 2025 active Osteopenia (disorder) 07/31 famotid ine 10 MG/ML Injecta ble Solutio n intrave nously 20.0 mg Re-initiate treatment only upon physician approval. 2025 active Osteopenia (disorder) 07/31 famotid ine 10 MG/ML Injecta ble Solutio n intrave nously 20.0 mg Re-initiate treatment only upon physician approval. 2025 active Osteopenia (disorder) 07/31 methylp redniso lone 2000 MG Injecti on intrave nously 125.0 mg Re-initiate treatment only upon physician approval. 2025 active Osteopenia (disorder) 07/31 1 ML epineph rine 1 MG/ML Injecti on intramu scularl y 0.3 mg once Re-initiate treatment only upon physician approval. 2025 active Osteopenia (disorder) 07/31 1 ML denosum ab 60 MG/ML Prefill ed Syringe subcuta neously 60.0 mg once Administer SQ injection in the upper arm, upper thigh or abdomen. 2025 active Osteopenia (disorder) 07/31 hydroco rtisone 100 MG Injecti on intrave nously 100.0 mg Re-initiate treatment only upon physician approval. 2025 active Osteopenia (disorder) 07/31 diphenh ydramin e hydroch loride 0.5 MG/ML Injecta ble Solutio n intrave nously 50.0 mg Re-initiate treatment only upon physician approval. 2025 active Osteopenia (disorder) 07/31 1 ML denosum ab 60 MG/ML Prefill ed Syringe subcuta neously 60.0 mg once Administer SQ injection in the upper arm, upper thigh or abdomen. 2025 active Intestinal malabsorptio n (disorder) 07/31 hydroco rtisone 100 MG Injecti on intrave nously 100.0 mg Re-initiate treatment only upon physician approval. 2024 active Osteopenia (disorder) 07/31 methylp redniso lone 2000 MG Injecti on intrave nously 125.0 mg Re-initiate treatment only upon physician approval. 2024 active Osteopenia (disorder) 07/31 1 ML denosum ab 60 MG/ML Prefill ed Syringe subcuta neously 60.0 mg once Administer SQ injection in the upper arm, upper thigh or abdomen. 2024 active Osteopenia (disorder) 07/31 1 ML epineph rine 1 MG/ML Injecti on intramu scularl y 0.3 mg once Re-initiate treatment only upon physician approval. 2024 active Osteopenia (disorder) 07/31 diphenh ydramin e hydroch loride 0.5 MG/ML Injecta ble Solutio n intrave nously 50.0 mg Re-initiate treatment only upon physician approval. 2024 active Osteopenia (disorder) 07/31 1 ML denosum ab 60 MG/ML Prefill ed Syringe subcuta neously 60.0 mg once Administer SQ injection in the upper arm, upper thigh or abdomen. 2024 active Intestinal malabsorptio n (disorder) 07/31 famotid ine 10 MG/ML Injecta ble Solutio n intrave nously 20.0 mg Re-initiate treatment only upon physician approval. 2024 active Osteopenia (disorder) 07/31 1 ML denosum ab 60 MG/ML Prefill ed Syringe subcuta neously 60.0 mg once Administer SQ injection in the upper arm, upper thigh or abdomen. 2024 active Intestinal malabsorptio n (disorder) 07/31 diphenh ydramin e hydroch loride 0.5 MG/ML Injecta ble Solutio n intrave nously 50.0 mg Re-initiate treatment only upon physician approval. 2024 active Osteopenia (disorder) 07/31 famotid ine 10 MG/ML Injecta ble Solutio n intrave nously 20.0 mg Re-initiate treatment only upon physician approval. 2024 active Osteopenia (disorder) 07/31 1 ML denosum ab 60 MG/ML Prefill ed Syringe subcuta neously 60.0 mg once Administer SQ injection in the upper arm, upper thigh or abdomen. 2024 active Osteopenia (disorder) 07/31 1 ML epineph rine 1 MG/ML Injecti on intramu scularl y 0.3 mg once Re-initiate treatment only upon physician approval. 2024 active Osteopenia (disorder) 07/31 methylp redniso lone 2000 MG Injecti on intrave nously 125.0 mg Re-initiate treatment only upon physician approval. 2024 active Osteopenia (disorder) 07/31 hydroco rtisone 100 MG Injecti on intrave nously 100.0 mg Re-initiate treatment only upon physician approval. 2024 active Osteopenia (disorder) 07/31 1 ML denosum ab 60 MG/ML Prefill ed Syringe subcuta neously 60.0 mg once Administer SQ injection in the upper arm, upper thigh or abdomen. 2023 active Osteopenia (disorder) 07/31 hydroco rtisone 100 MG Injecti on intrave nously 100.0 mg Re-initiate treatment only upon physician approval. 2023 active Osteopenia (disorder) 07/31 famotid ine 10 MG/ML Injecta ble Solutio n intrave nously 20.0 mg Re-initiate treatment only upon physician approval. 2023 active Osteopenia (disorder) 07/31 1 ML denosum ab 60 MG/ML Prefill ed Syringe subcuta neously 60.0 mg once Administer SQ injection in the upper arm, upper thigh or abdomen. 2023 active Intestinal malabsorptio n (disorder) 07/31 1 ML epineph rine 1 MG/ML Injecti on intramu scularl y 0.3 mg once Re-initiate treatment only upon physician approval. 2023 active Osteopenia (disorder) 07/31 methylp redniso lone 2000 MG Injecti on intrave nously 125.0 mg Re-initiate treatment only upon physician approval. 2023 active Osteopenia (disorder) 07/31 diphenh ydramin e hydroch loride 0.5 MG/ML Injecta ble Solutio n intrave nously 50.0 mg Re-initiate treatment only upon physician approval. 2023 active Osteopenia (disorder) 10/20 methylp redniso lone 2000 MG Injecti on intrave nously 125.0 mg Re-initiate treatment only upon physician approval. 2023 active Osteopenia (disorder) 10/20 1 ML epineph rine 1 MG/ML Injecti on intramu scularl y 0.3 mg once Re-initiate treatment only upon physician approval. 2023 active Osteopenia (disorder) 10/20 diphenh ydramin e hydroch loride 0.5 MG/ML Injecta ble Solutio n intrave nously 50.0 mg Re-initiate treatment only upon physician approval. 2023 active Osteopenia (disorder) 10/20 hydroco rtisone 100 MG Injecti on intrave nously 100.0 mg Re-initiate treatment only upon physician approval. 2023 active Osteopenia (disorder) 10/20 famotid ine 10 MG/ML Injecta ble Solutio n intrave nously 20.0 mg Re-initiate treatment only upon physician approval. 2023 active Osteopenia (disorder) 12/25 anastro zole 1 MG Oral Tablet orally 1.0 tablet every day 2023 active 11/29 anastro zole 1 MG Oral Tablet orally 1.0 tablet every day 2023 active 10/20 hydroco rtisone 100 MG Injecti on intrave nously 100.0 mg Re-initiate treatment only upon physician approval. 2022 active Osteopenia (disorder) 10/20 1 ML epineph rine 1 MG/ML Injecti on intramu scularl y 0.3 mg once Re-initiate treatment only upon physician approval. 2022 active Osteopenia (disorder) 10/20 diphenh ydramin e hydroch loride 0.5 MG/ML Injecta ble Solutio n intrave nously 50.0 mg Re-initiate treatment only upon physician approval. 2022 active Osteopenia (disorder) 10/20 methylp redniso lone 2000 MG Injecti on intrave nously 125.0 mg Re-initiate treatment only upon physician approval. 2022 active Osteopenia (disorder) 10/30 anastro zole 1 MG Oral Tablet orally 1.0 tablet every day 2022 active 10/20 famotid ine 10 MG/ML Injecta ble Solutio n intrave nously 20.0 mg Re-initiate treatment only upon physician approval. 2022 active Osteopenia (disorder) Problems Diagnosis Status Date of Diagnosis Resolution [...] Temperature 97.00 01/24/2024 Pain Scale 0.00 05/01/2024 BSA 1.95 05/01/2024 BMI 27.37 05/01/2024 Height 68.00 05/01/2024 Weight 180.00 05/01/2024 Pain Scale 0.00 05/01/2024 Oxygen Saturation 96.00 05/01/2024 Heart Beat 83.00 05/01/2024 Body Temperature 97.00 05/01/2024 Intravascular Systolic 122 05/01/2024 Intravascular Diastolic 70 07/31/2024 Pain Scale 0.00 07/31/2024 BSA 1.94 07/31/2024 BMI 26.76 07/31/2024 Height 68.00 07/31/2024 Weight 176.00 07/31/2024 Intravascular Systolic 124 07/31/2024 Intravascular Diastolic 78 07/31/2024 Oxygen Saturation 98.00 07/31/2024 Heart Beat 74.00 07/31/2024 Body Temperature 97.60 Notes Section * Nurse Note for: 31-JUL-24 [facility] Nurse Note Print Location: Unknown Date/Time Printed: 10/19/2025 16:00 ([facility]) Patient: Erna Melendez Sex: Female : 1960 [...] on 12:32 * Nurse Note for: 01-MAY-24 [facility] Nurse Note Print Location: Unknown Date/Time Printed: 10/19/2025 16:00 ([facility]) Patient: Erna Melendez Sex: Female : 1960 [...] Incident to: [place] Randall MD Denosumab (Prolia) [id number] Immunotherapy Denosumab Subcutaneous (60 mg/mL - Prolia), 60 mg/mL syringe, 60 mg subcutaneously once, Instructions: Administer SQ injection in the upper arm, upper thigh or abdomen., Allow Substitution GIVEN: 60 mg Pharmacy plan: Dose Form Description: 60 mg/mL syringe Dispense/Waste: 60/0 mg Pharmacy dispense: [facility]: [phone] Dispense/Waste: 60/0 mg Given Dose/Discard: 60/0 mg Admin Details: Injection Location: Right-Upper Arm Time: 15:23 Checked By: Rashida Szymanski on 05/01/2024 15:23 * Nurse Note for: 24-JAN-24 [facility] Nurse Note Print Location: Unknown Date/Time Printed: 10/19/2025 16:00 ([facility]) Patient: Erna Melendez Sex: Female : 1960 [...] on 15:06 * Nurse Note for: 29-NOV-23 [facility] Nurse Note Print Location: Unknown Date/Time Printed: 10/19/2025 16:00 ([facility]) Patient: Erna Melendez Sex: Female : 1960 [...]
--- OUTSIDE RECORDS SUMMARY | 2025-10-19 16:00 | XMS_ITS | CCD ---
Author Name Interface, [id number] lity Address [address] [place] [address] [facility] ters Address [address] [place] [address] Care Team Providers Care Supervisor [employer] Name Role Phone Prakash MORRIS, [place] Portillo Allergies and Adverse Reactions Medication/Group Name Reaction Severity Date No known allergies Care Plan Date Type Value 04/25/2029 APPOINTMENT Chemo C12D1 Dylon sumab (Prolia) [id number] 10/25/2028 APPOINTMENT Chemo C11D1 Dylon sumab (Prolia) M2Mnisn 04/26/2028 APPOINTMENT Chemo C10D1 Dylon sumab (Prolia) K5Pcjhi 10/27/2027 APPOINTMENT Chemo C9D1 Denos umab (Prolia) I6Ebsvt 04/28/2027 APPOINTMENT Chemo C8D1 Denos umab (Prolia) D7Jruud 10/28/2026 APPOINTMENT Chemo C7D1 Denos umab (Prolia) P0Zwrmr 04/29/2026 APPOINTMENT Chemo C6D1 Denos umab (Prolia) A9Fnpnu 10/29/2025 APPOINTMENT Chemo C5D1 Denos umab (Prolia) J2Imrmf 04/30/2025 APPOINTMENT Chemo C4D1 Denos umab (Prolia) Q0Ulbrs 10/30/2024 APPOINTMENT Chemo C3D1 Denos umab (Prolia) U5Rcdar Reason for Visit Chemo C4D1 Denosumab (Prolia) M2Trqhw Medications Date Name Route Dose Frequency Instructions Start Date End Date Status Fill Status Indication 06/07 Cetiriz ine Oral active 06/07 Alprazo keene Oral inactive 06/07 Methylp redniso lone Acetate IM inactive 06/07 Choleca lcifero l Oral active 07/31 methylp redniso lone 2000 MG Injecti [...] 2028 active Intestinal malabsorptio n (disorder) 07/31 famotid [...] or abdomen. 2027 active Osteopenia (disorder) 07/31 hydroco rtisone [...] 2027 active Intestinal malabsorptio n (disorder) 07/31 methylp redniso lone 2000 MG [...] or abdomen. 2027 active Osteopenia (disorder) 07/31 1 ML denosum ab 60 MG/ML Prefill ed Syringe subcuta neously 60.0 mg once Administer SQ injection in the upper arm, upper thigh or abdomen. 2027 active Intestinal malabsorptio n (disorder) 07/31 hydroco [...] or abdomen. 2026 active Osteopenia (disorder) 07/31 diphenh ydramin e hydroch loride 0.5 MG/ML Injecta ble Solutio n intrave nously 50.0 mg Re-initiate treatment only upon physician approval. 2026 active Osteopenia (disorder) 07/31 famotid ine 10 MG/ML Injecta ble Solutio n intrave nously 20.0 mg Re-initiate treatment only upon physician approval. 2026 active Osteopenia (disorder) 07/31 diphenh ydramin e hydroch loride 0.5 MG/ML Injecta ble Solutio n intrave nously 50.0 mg Re-initiate treatment only upon physician approval. 2026 active Osteopenia (disorder) 07/31 famotid ine [...] or abdomen. 2025 active Osteopenia (disorder) 07/31 1 ML epineph rine 1 MG/ML Injecti on intramu scularl y 0.3 mg once Re-initiate treatment only upon physician approval. 2025 active Osteopenia (disorder) 07/31 1 ML denosum ab 60 MG/ML Prefill ed Syringe subcuta neously 60.0 mg once Administer SQ injection in the upper arm, upper thigh or abdomen. 2025 active Intestinal malabsorptio n (disorder) 07/31 methylp redniso lone 2000 MG Injecti on intrave nously 125.0 mg Re-initiate treatment only upon physician approval. 2025 active Osteopenia (disorder) 07/31 1 ML denosum ab 60 MG/ML Prefill ed Syringe subcuta neously 60.0 mg once Administer SQ injection in the upper arm, upper thigh or abdomen. 2025 active Osteopenia (disorder) 07/31 diphenh ydramin [...] or abdomen. 2024 active Osteopenia (disorder) 07/31 diphenh ydramin [...] 2024 active Intestinal malabsorptio n (disorder) 07/31 hydroco [...] or abdomen. 2024 active Osteopenia (disorder) 07/31 famotid ine [...] 2023 active Osteopenia (disorder) 07/31 1 ML epineph rine 1 MG/ML Injecti on intramu scularl y 0.3 mg once Re-initiate treatment only upon physician approval. 2023 active Osteopenia (disorder) 07/31 1 ML denosum ab 60 MG/ML Prefill ed Syringe subcuta neously 60.0 mg once Administer SQ injection in the upper arm, upper thigh or abdomen. 2023 active Osteopenia (disorder) 07/31 1 ML denosum ab 60 MG/ML Prefill ed Syringe subcuta neously 60.0 mg once Administer SQ injection in the upper arm, upper thigh or abdomen. 2023 active Intestinal malabsorptio n (disorder) Problems Diagnosis Status Date of Diagnosis Resolution Date Breast DCIS Active Osteopenia (disorder) Active Intestinal malabsorption (disorder) Active Screening mammography (procedure) Active Social History Date Name Value 06/06/2023 Sex Female Visits Date Type Value 04/25/2029 [...]
--- OUTSIDE RECORDS SUMMARY | 2025-10-19 16:00 | XMS_ITS ---
Author Name Interface, [id number] lity Address [address] [place] [address] [facility] ters Address [address] [place] [address] Allergies and Adverse Reactions Medication/Group Name Reaction Severity Date No known allergies Plan Date Type Value 04/25/2029 APPOINTMENT Chemo C12D1 Dylon sumab (Prolia) [id number] 10/25/2028 APPOINTMENT Chemo C11D1 Dylon sumab (Prolia) U8Dnwoz 04/26/2028 APPOINTMENT Chemo C10D1 Dylon sumab (Prolia) B7Lrcot 10/27/2027 APPOINTMENT Chemo C9D1 Denos umab (Prolia) E5Ikuju 04/28/2027 APPOINTMENT Chemo C8D1 Denos umab (Prolia) X0Ftqks 10/28/2026 APPOINTMENT Chemo C7D1 Denos umab (Prolia) W4Nsyhs 04/29/2026 APPOINTMENT Chemo C6D1 Denos umab (Prolia) N5Rbmdw 10/29/2025 APPOINTMENT Chemo C5D1 Denos umab (Prolia) R5Wjern 04/30/2025 APPOINTMENT Chemo C4D1 Denos umab (Prolia) N0Mtlrl 10/30/2024 APPOINTMENT Chemo C3D1 Denos umab (Prolia) O3Bhfgo 07/31/2024 APPOINTMENT Follow-Up 07/31/2024 APPOINTMENT Lab 07/31/2024 APPOINTMENT Lab 07/31/2024 LAB_ORDER CBC 07/31/2024 LAB_ORDER CMP PANEL Reason for Visit Chemo C4D1 Denosumab (Prolia) [id number] Encounters Date Name 07/31/2024 Breast DCIS Diagnostic Results Date Type Test Units Lower Limit Upper Limit Result Flag Comments Status Ordered By Specimen Source Lab Address 09/20 /2024 WBC K/uL 4.0 11.0 5.4 FINAL [facility] [place] [facility], [address] [place] [id number] 0 07/31 RBC M/uL 4.2 5.4 4.14 Low FINAL [facility] [place] [facility], [address] [place] [id number] 0 07/31 HGB g/dL 12.0 16.0 13.7 FINAL [facility] [place] [facility], [address] [place] [id number] 0 07/31 HCT % 37.0 47.0 40.7 FINAL [facility] [place] [facility], [address] [place] [id number] 0 07/31 MCV fL 79.0 101.0 98.3 FINAL [facility] [place] [facility], [address] [place] [id number] 0 07/31 MCH pg 27.0 31.0 33.1 High FINAL [facility] [place] [facility], [address] [place] [id number] 0 07/31 MCHC g/dL 32.0 37.0 33.7 FINAL [facility] [place] [facility], [address] [place] [id number] 0 07/31 RDW-C V, % % 8.0 15.0 12.7 FINAL [facility] [place] [facility], [address] [place] [id number] 0 07/31 MPV fL 9.4 11.4 8.5 Low FINAL [facility] [place] [facility], [address] [place] [id number] 0 07/31 PLT K/uL 130.0 400.0 196 FINAL [facility] [place] [facility], [address] [place] [id number] 0 07/31 Danilo % % 58.0 71.0 59.9 FINAL [facility] [place] [facility], [address] [place] [id number] 0 07/31 LY % % 20.0 38.0 27.8 FINAL [facility] [place] [facility], [address] [place] [id number] 0 07/31 MO % % 0.0 15.0 9.8 FINAL [facility] [place] [facility], [address] [place] [id number] 0 07/31 EO % % 0.0 6.0 1.9 FINAL [facility] [place] [facility], [address] [place] [id number] 0 07/31 BA % % 0.0 3.0 0.4 FINAL [facility] [place] [facility], [address] [place] [id number] 0 07/31 Danilo # (ANC) K/uL 1.8 7.8 3.2 FINAL [facility] [place] [facility], [address] [place] [id number] 0 07/31 LY # K/uL 0.0 4.8 1.5 FINAL [facility] [place] [facility], [address] [place] [id number] 0 07/31 MO # K/uL 0.1 0.8 0.5 FINAL [facility] [place] [facility], [address] [place] [id number] 0 07/31 EO # K/uL 0.0 1.0 0.1 FINAL [facility] [place] [facility], [address] [place] [id number] 0 07/31 BA # K/uL 0.0 1.3 0.0 FINAL [facility] [place] [facility], [address] [place] [id number] 0 07/31 IG # K/uL 0.0 0.0 0.0 FINAL [facility] [place] [facility], [address] [place] [id number] 0 07/31 IG % % 0.0 0.0 0.2 High FINAL [facility] [place] [facility], [address] [place] [id number] 0 07/31 Sodiu m mmol/L 136.0 145.0 138 FINAL [facility] [place] [facility], [address] [place] [id number] 0 07/31 Potas sium mmol/L 3.5 5.1 4.6 FINAL [facility] [place] [facility], [address] [place] [id number] 0 07/31 Chlor vee mmol/L 98.0 107.0 104 FINAL [facility] [place] [facility], [address] [place] [id number] 0 07/31 Total prote in g/dL 6.4 8.2 7.6 [facility]AL [place] [facility] [place] [facility], [address] [place] [id number] 0 07/31 Album in g/dL 3.4 5.0 4.5 FINAL [facility] [place] [facility], [address] [place] [address] [place] [address] 0 07/31 Calci um mg/dL 8.5 10.1 9.9 FINAL [facility] [place] [facility], [address] [place] [address] [place] [address] 0 07/31 BUN mg/dL 7.0 18.0 16 FINAL [place] [facility] [place] [facility], [address] [place] [address] [place] [address] 0 07/31 Creat inine mg/dL 0.55 1.02 0.60 FINAL [place] [facility] [place] [facility], [address] [place] [address] [place] [address] 0 07/31 Bilir ubin, total mg/dL 0.2 1.0 0.70 FINAL [facility] [place] [facility], [address] [place] [address] [place] [address] 0 07/31 AST/S GOT U/L 15.0 37.0 22 FINAL [facility] [place] [facility], [address] [place] [address] [place] [address] 0 07/31 ALT/S GPT U/L 12.0 78.0 14 FINAL [facility] [place] [facility], [address] [place] [address] [place] [address] 0 07/31 Alkal ine phosp hatas e U/L 46.0 116.0 70 FINAL [facility] [place] [facility], [address] [place] [address] [place] [address] 0 07/31 eGFR (2020 ) V 101.67% FINAL [place] [facility] [place] [facility], [address] [place] [address] [place] [address] 0 Medications Date Name Route Dose Frequency [...] Notes Section * Nurse Note for: 31-JUL-24 [facility] Nurse Note Print Location: Unknown Date/Time Printed: 10/19/2025 16:00 ([facility]) Patient: Erna Jackson Sex: Female : 1960 [...]
--- OUTSIDE RECORDS SUMMARY | 2025-10-19 16:01 | XMS_ITS | Clinical Summary ---
Author Organization [facility] Phong Otto Address [address] [place] [address] Care Team Providers Care Lead Driver Name Role Phone Unavailable Primary Care Provider Unavailabl e Allergies No known active allergies Medications cetirizine (ZyrTEC) 10 mg tablet Take 10 mg by mouth. Active Cholecalciferol, Vitamin D3, 50 mcg (2,000 unit) Capsule Take 2,000 Units by mouth daily. Active anastrozole (ARIMIDEX) 1 mg tablet Take 1 Tablet (1 mg) by mouth daily. 90 Tablet 3 06/16/2025 Active Active Problems No known active problems Encounters Date Type Department Care Team Description 10/18/2025 Orders Only [facility] Oncology and Hematology [facility] Narayan Sears [address] [place] [address] Scott Beck MD Ductal carcinoma in situ (DCIS) of left breast 10/15/2025 11:30 AM CART ATTENDANT Office Visit [facility] Oncology and Hematology [facility] Tamar Sears [address] [place] [address] Scott Beck MD Ductal carcinoma in situ (DCIS) of left breast (Primary Dx) 10/12/2025 Orders Only [facility] Oncology and Hematology [facility] Tamar Sears [address] [place] [address] Scott Beck MD Ductal carcinoma in situ (DCIS) of left breast (Primary Dx) 10/04/2025 Orders Only [facility] Oncology and Hematology [facility] Tamar Sears [address] [place] [address] Scott Beck MD Ductal carcinoma in situ (DCIS) of left breast 09/28/2025 External Device Data STL ABSTRACTION Provider, Abstract 09/20/2025 Orders Only [facility] Oncology and Hematology - [address] [place] [id number] Scott Beck MD Ductal carcinoma in situ (DCIS) of left breast 09/08/2025 External Device Data STL ABSTRACTION Provider, Abstract 09/07/2025 External Device Data STL ABSTRACTION Provider, Abstract 09/06/2025 Orders Only [facility] Oncology and Hematology - [address] [place] [address] Scott Beck MD Ductal carcinoma in situ (DCIS) of left breast 08/23/2025 Orders Only [facility] Oncology and Hematology - [address] [place] [address] Scott Beck MD Ductal carcinoma in situ (DCIS) of left breast 08/09/2025 Orders Only [facility] Oncology and Hematology - [address] [place] [address] Scott Beck MD Ductal carcinoma in situ (DCIS) of left breast 07/26/2025 Orders Only [facility] Oncology and Hematology - [address] [place] [address] Scott Beck MD Ductal carcinoma in situ (DCIS) of left breast from Last 3 Months Family History Medical [...] on file Legal Sex Female 1:12 PM CART ATTENDANT Gender Identity Not on file Sexual Orientation Not on file Last Filed Vital Signs Vital Sign Reading Time Taken Comments Blood Pressure 140/94 10/15/2025 11:30 AM CART ATTENDANT Pulse 82 10/15/2025 11:26 AM CART ATTENDANT Temperature 36.4 C (97.6 F) 10/15/2025 11:26 AM CART ATTENDANT Respiratory Rate 15 10/15/2025 11:26 AM CART ATTENDANT Oxygen Saturation 95% 10/15/2025 11:26 AM CART ATTENDANT Inhaled Oxygen Concentration - - Weight 82 kg (180 lb 12.8 oz) 10/15/2025 11:26 A M CART ATTENDANT Height 172.7 cm (5' 8) 09/30/2024 11:10 AM CART ATTENDANT Body Mass Index 27.49 09/30/2024 11:10 AM CART ATTENDANT Plan of Treatment Upcoming Encounters Date Type Department Care Team (Late st Contact Info) Description 04/15/2026 11:00 AM CDT Office Visit [facility] Oncology and Hematology [facility] [address] [facility] [address] [place] [address] Scott Beck MD [address] [facility] [address] [place] [address] Health Maintenance Due Date Last Done Comments Pre-Diabetes and Diabetes Screening 1960 HPV/Cotest (21-29) 1983 HPV/Cotest (30-65) 1992 COLORECTAL SCREENING 2007 Colorectal Cancer Screening 2007 FIT-DNA Q 3 years 2007 FIT/FOBT Q 1 year 2007 Flex Sig/CT Colonography Q 5 years 2007 Preventative Visit- Commercial 11/11/2024 0 06/11/2024, 05/13/2023, 01/29/2023, Additional history exists BREAST CANCER SCREENING 04/22/2025 04/22/20 24, 04/22/2024, 07/08/2023, Additional history exists INFLUENZA VACCINE (#1) 2025 COVID-19 Vaccine (3 - 2024-2 6 season) 2025 02/21/2021, 01/23/2021 DTAP/TDAP/TD VACCINES (2 - T d or Tdap) 04/10/2026 04/10/2016 CERVICAL CANCER SCREENING 05/13/2026 PAP SMEAR 05/13/2026 05/13/2023 RSV VACCINE (60+ or ) (1 - 1-dose 75+ series) 2037 ZOSTER VACCINE Completed 07/23/2023, 04/01/2023 Procedures Procedure Name Priority Date/Time Associated Diagnosis Comments CBC WITH DIFFERENTIAL Routine 10/12/2025 2:42 PM CART ATTENDANT Ductal carcinoma in situ (DCIS) of left breast COMPREHENSIVE METABOLIC PANEL Routine 10/12/2025 2:42 PM CART ATTENDANT Ductal carcinoma in situ (DCIS) of left breast from Last 3 Months Results * CBC WITH DIFFERENTIAL (10/12/2025 2:42 PM CART ATTENDANT) WBC 4.8 3.8 - 10.8 Thousand/u L [facility] RBC 4.15 3.80 - 5.10 Million/uL [facility] HEMOGLOBIN 13.6 11.7 - 15.5 g/dL [facility] HEMATOCRIT 40.3 35.9 - 46.0 % [facility] MCV 97.1 81.4 - 101.7 fL [facility] MCH 32.8 27.0 - 33.0 pg [facility] MCHC 33.7 31.6 - 35.4 g/dL [facility] Comment: For adults, a slight decrease in the calculated MCHC value (in the range of 30 to 32 g/dL) is most likely not clinically significant; however, it should be interpreted with caution in correlation with other red cell parameters and the patient's clinical condition. RDW 12.6 11.0 - 15.0 % [facility] PLATELETS 185 140 - 400 Thousand/u L [facility] MPV 9.8 7.5 - 12.5 fL [facility] NEUTROPHIL ABSOLUTE 2,755 1,500 - 7,800 cells/uL [facility] LYMPHOCYTE ABSOLUTE 1,512 850 - 3,900 cells/uL [facility] MONOCYTE ABSOLUTE 427 200 - 950 cells/uL [facility] EOSINOPHIL ABSOLUTE 67 15 - 500 cells/uL [facility] BASOPHILS ABSOLUTE 38 0 - 200 cells/uL [facility] NEUTROPHIL 57.4 % [facility] LYMPHOCYTES 31.5 % [facility] MONOCYTE 8.9 % [facility] EOSINOPHILS 1.4 % [facility] BASOPHILS 0.8 % [facility] Comment: Test Performed at: [facility] [address] [place] [address] John Bowser MD Blood 10/12/2025 2:42 PM CART ATTENDANT 10/12/2025 2:42 PM CART ATTENDANT us Scott Beck MD HEMATOLOGY ORDERABLES Final Res ult [facility] [phone] [facility] [address] [place] [address] * COMPREHENSIVE METABOLIC PANEL (10/12/2025 2:42 PM CART ATTENDANT) GLUCOSE 93 65 - 99 mg/dL [facility] Comment: Fasting reference interval BUN 14 7 - 25 mg/dL [facility] CREATININE 0.58 0.50 - 1.05 mg/dL [facility] GFR 102 > OR = 60 mL/min/1. 73m2 [facility] BUN/CREAT RATIO SEE NOTE: 6 - 22 (calc) [facility] Comment: Not Reported: BUN and Creatinine are within reference range. SODIUM 139 135 - 146 mmol/L [facility] POTASSIUM 3.9 3.5 - 5.3 mmol/L [facility] CHLORIDE 103 98 - 110 mmol/L [facility] CO2 30 20 - 32 mmol/L [facility] CALCIUM 9.7 8.6 - 10.4 mg/dL [facility] TOTAL PROTEIN 7.1 6.1 - 8.1 g/dL [facility] ALBUMIN 4.3 3.6 - 5.1 g/dL [facility] GLOBULIN 2.8 1.9 - 3.7 g/dL (calc) [facility] ALBUMIN/GLOBULIN RATIO 1.5 1.0 - 2.5 (calc) [facility] BILIRUBIN TOTAL 0.5 0.2 - 1.2 mg/dL [facility] ALKALINE PHOSPHATASE 73 37 - 153 U/L [facility] AST 17 10 - 35 U/L [facility] ALT 11 6 - 29 U/L [facility] Comment: Test Performed at: [facility] [address] [facility] [place] [address] John Bowser MD Blood 10/12/2025 2:42 PM CART ATTENDANT 10/12/2025 2:42 PM CART ATTENDANT us Scott Beck MD CHEMISTRY ORDERABLES Final Resu lt [facility] [phone] [facility] [address] [place] [address] from Last 3 Months Insurance [facility] OUT OF STATE [facility] BLUE ACCESS/TRUE BLUE PPO HOSPITAL
== END 2025-10-19 14:01 | disposition home or self-care (01) ==
LOC: ANHFOHIMG 14:02
PROVIDERS: PCP Nurse Practitioner Family; Visit Provider Internal Medicine Hematology & Oncology
DX: M85.89 Other specified disorders of bone density and structure, multiple sites (principal); Z78.0 Asymptomatic menopausal state
CPT/HCPCS: 77080